=== PATIENT | male | born 1965 | race Caucasian/White ===

== ENCOUNTER 2017-06-21 14:17 | Emergency (ER) | payer OTHER ==
[~2017-06-21] VITALS: Ht 182.9 cm; Wt 158.8 kg
[~2017-06-21 14:17] MED LIST: ASP81TEC PO; C250T; CHOL10002; COLC0.6T7 PO; HYDR-3720 PO; HYDR-3816 PO; HYDR1TAB PO; INDO50CA PO; LISI10TA; LISI10TA PO; MTP25TSR PO; MULT1CAP27 PO; MVI; PRD20T PO; SIMV20TA3; SIMV20TA3 PO; VITA1CAP59; aspirin
--- OUTSIDE RECORDS SUMMARY | 2017-06-21 14:23 | XMS REPORT | Continuity of Care Document ---
Author Author [facility] Organization [facility] Address Unknown Phone Unavailable Allergies Active Description Code Type Severity Reaction Onset Reported/Identified Relationship to Patient Clinical Status Yes NKANo Known Allergies NKA Miscellaneous Allergy Mild N/A 12/04/2008 Medications Problems Date Dx Coded Attending Type Code Diagnosis Diagnosed By 12/03/2009 Ot 327.23 12/03/2009 Ot 401.9 01/21/2010 Ot 274.9 01/21/2010 Ot 729.5 03/31/2010 Ot 272.4 03/31/2010 Ot 274.00 03/31/2010 Ot 305.1 03/31/2010 Ot 401.9 03/31/2010 Ot 414.00 03/31/2010 Ot 723.1 03/31/2010 Ot 786.52 03/31/2010 Ot V58.66 03/31/2010 Ot V58.69 12/28/2010 Ot 401.9 HYPERTENSION NOS 04/12/2011 Ot 274.01 ACUTE GOUTY ARTHROPATHY 04/12/2011 Ot 719.46 JOINT PAIN-L/LEG 05/03/2014 RIA SANDERS JEFFREY Ashley Ot 274.9 GOUT NOS 10/03/2014 RISSA FRANCOIS MD Ot 786.05 10/05/2014 RISSA FRANCOIS MD Ot 786.05 10/08/2014 RISSA FRACNOIS MD Ot 786.05 01/28/2015 RISSA FRANCOIS MD Ot 786.05 05/24/2015 RISSA FRANCOIS MD Ot 786.05 06/05/2015 RISSA FRANCOIS MD Ot 786.05 09/02/2015 RISSA FRANCOIS MD Ot 786.05 09/03/2015 RISSA FRANCOIS MD Ot 786.05 03/31/2016 RISSA FRANCOIS MD Ot 786.05 SHORTNESS OF BREATH 04/01/2016 RISSA FRANCOIS MD Ot 786.05 SHORTNESS OF BREATH 05/25/2016 RISSA FRANCOIS MD Ot 786.05 SHORTNESS OF BREATH 05/25/2016 LOIS FRITZ, CARLEY Rodriguez Ot E11.9 TYPE 2 DIABETES MELLITUS WITHOUT COMPLIC 05/25/2016 CARLEY ABREU MD Ot I10 ESSENTIAL (PRIMARY) HYPERTENSION 05/25/2016 CARLEY ABREU MD Ot M25.531 PAIN IN RIGHT WRIST 05/25/2016 CARLEY ABREU MD Ot Z79.82 CUSTODIAL (CURRENT) USE OF ASPIRIN 05/25/2016 CARLEY ABREU MD Ot Z79.899 OTHER CUSTODIAL (CURRENT) DRUG THERAPY 05/27/2016 CARLEY ABREU MD Ot E11.9 TYPE 2 DIABETES MELLITUS WITHOUT COMPLIC 05/27/2016 CARLEY ABREU MD Ot I10 ESSENTIAL (PRIMARY) HYPERTENSION 05/27/2016 CARLEY ABREU MD Ot M25.531 PAIN IN RIGHT WRIST 05/27/2016 CARLEY ABREU MD Ot 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 Visit Date/Time Discharge Status Pt. Type Provider Facility Loc./Unit Complaint [id number] 05/25/2016 08:09:00 2015 09:19:00 DIS Emergency CARLEY ABREU MD [facility] ER RIGHT WRIST PAIN/SWELLING [id number] 07/31/2015 10:51:00 2014 23:59:59 CLS Outpatient CAREY PERRY [facility] OCC [id number] 05/02/2014 23:33:00 2013 01:05:00 DIS Emergency JEFFREY ROLLINS DO [facility] ER L KNEE PAIN [id number] 04/24/2014 13:37:00 2013 23:59:59 CLS Outpatient RISSA FRANCOIS MD [facility] RAD SOB [id number] 01/07/2015 19:20:00 Document Registration [id number] 01/07/2015 19:19:00 Document Registration [id number] 01/07/2015 19:19:00 Document Registration [id number] 04/12/2011 21:10:00 Document Registration [id number] 01/21/2010 00:24:00 Document Registration [id number] 12/02/2009 21:41:00 Document Registration
[2017-06-21] MEDS ORDERED: RT-ALBUTEROL/IPRATROPIUM 3 ML (DUONEB) VIAL INH ONE (15:00)
--- NOTE | 2017-06-21 15:02 | ED Cough/URI ---
General Chief Complaint: Cough/Cold/Flu Symptoms Stated Complaint: COLD SYMPTOMS CHEST CONGESTION SOA Source: patient Exam Limitations: no limitations History of Present Illness Time seen by provider: 15:00 Initial Comments To ER with a 2 week history of cough, shortness of breath, dyspnea on exertion. States that his whole family has been ill with similar symptoms. His cough was initially productive but today is not. He has some sharp chest pain with deep breathing and shortness of breath with exertion which is unusual for him. Has persistent nasal and head congestion. Timing/Duration: other (2 weeks ) Severity/Quality: dry cough Associated Symptoms: cough Allergies and Home Medications Allergies Coded Allergies: NKANo Known Allergies (Unverified Allergy, Mild, 12/04/08) Home Medications Aspirin 81 Mg Tabec, 325 MG PO DAILY, Ref 0 (Reported) Cefdinir 300 Mg Capsule, 300 MG PO BID, #14 Prescribed by: ADAN AGUIRRE on 06/21/17 1542 Hydrocodone/Acetaminophen 1 Each Tablet, 1 EACH PO Q6H, #12 Prescribed by: CARLEY ABREU on 05/25/16 0912 Lisinopril 10 Mg Tablet, 20 MG PO DAILY, Ref 0 (Reported) Metoprolol Succinate 25 Mg Tab, 25 MG PO DAILY, Ref 0 (Reported) Multivitamins 1 Each Capsule, 1 EACH PO DAILY, (Reported) Prednisone 20 Mg Tab, 40 MG PO DAILY, #12 Prescribed by: CARLEY ABREU on 05/25/16 0912 Simvastatin 20 Mg Tablet, 20 MG PO DAILY, (Reported) Constitutional: see HPI EENTM: see HPI, nose congestion Respiratory: see HPI, cough, dyspnea on exertion Cardiovascular: no symptoms reported Genitourinary: no symptoms reported Musculoskeletal: no symptoms reported Skin: no symptoms reported Psychiatric/Neurological: No Symptoms Reported Hematologic/Lymphatic: No Symptoms Reported Past Dsxmaal-Kddwge-Tbxdap Hx Patient Social History Alcohol Use: Occasionally Uses Alcohol Beverage of Choice: Beer Recreational Drug Use: No Smoking Status: Never a Smoker 2nd Hand Smoke Exposure: No Recent Foreign Travel: No Contact w/Someone Who Travel: No Recent Hopitalizations: Yes Physical Abuse: No Sexual Abuse: No Mistreated: No Fear: No Surgeries History of Surgeries: Yes (UMB HERNIA, HEART CATH) Respiratory History of Respiratory Disorde: No Cardiovascular History of Cardiac Disorders: Yes Cardiac Disorders: High Cholesterol, Hypertension Neurological History of Neurological Disord: No Reproductive System Hx Reproductive Disorders: No Genitourinary History of Genitourinary Disor: No Gastrointestinal History of Gastrointestinal Di: Yes Musculoskeletal History of Musculoskeletal Dis: No Endocrine History of Endocrine Disorders: Yes Endocrine Disorders: Diabetes, Non-Insulin dep HEENT History of HEENT Disorders: No Cancer History of Cancer: No Psychosocial History of Psychiatric Problem: No Suicide Risk Score: 0 Integumentary History of Skin or Integumenta: No Blood Transfusions History of Blood Disorders: No Family Medical History Significant Family History: No Pertinent Family Hx Physical Exam Vital Signs Vital Sign - Last 12Hours 06/21/17 14:51 Temp 98.3 Pulse 79 Resp 20 B/P (MAP) 122/79 Pulse Ox 93 O2 Delivery Room Air Capillary Refill : General Appearance: WD/WN, no apparent distress Eyes: Bilateral Eye Normal Inspection, Bilateral Eye PERRL, Bilateral Eye EOMI HEENT: PERRL/EOMI, normal ENT inspection Neck: non-tender, full range of motion Respiratory: lungs clear, normal breath sounds, no respiratory distress, no accessory muscle use Cardiovascular: regular rate, rhythm, no murmur Gastrointestinal: normal bowel sounds, non tender, soft Extremities: normal range of motion, non-tender Neurologic/Psychiatric: alert, normal mood/affect, oriented x 3 Skin: normal color, warm/dry Progress/Results/Core Measures Results/Orders My Orders Orders - ADAN AGUIRRE APRN Chest Pa/Lat (2 View) (06/21/17 14:58) Albuterol/Ipra Inhalation Soln (Duoneb I (06/21/17 15:00) Svn Sm Volume Nebulizer Rt-Rfs (06/21/17 14:58) Ceftriaxone Injection (Rocephin Injectio (06/21/17 15:15) Lidocaine 1% Injection (Xylocaine 1% Inj (06/21/17 15:15) Medications Given in ED Current Medications Medications Dose Ordered Sig/All Route Start Time Stop Time Status Last Admin Dose Admin Albuterol/ Ipratropium 3 ml ONCE ONCE INH 06/21/17 15:00 06/21/17 15:01 DC 06/21/17 15:26 3 ML Vital Signs/I&O Vital Sign - Last 12Hours 06/21/17 06/21/17 06/21/17 14:51 14:51 15:26 Temp 98.3 Pulse 79 Resp 20 B/P (MAP) 122/79 Pulse Ox 93 97 O2 Delivery Room Air Room Air Room Air Diagnostic Imaging Diagonstic Imaging: Xray Plain Films/CT/US/NM/MRI: chest Comments NAME: BRENTON [facility]MAGUER [facility] REC#: [id number] PT STATUS: REG ER : 1965 PHYSICIAN: ADAN AGUIRRE APRN ADMIT DATE: 06/21/17/ER Draft Date of Exam:06/21/17 CHEST PA/LAT (2 VIEW) PA and lateral views of the chest. INDICATION: Shortness of breath. COMPARISON: 04/24/2014. FINDINGS: There is a patchy infiltrate silhouetting the left cardiac border. The right lung is clear. The heart size is mildly enlarged. No effusion or pneumothorax. The mediastinum and guilherme appear unremarkable. IMPRESSION: Mild opacity in the lingula silhouetting the left cardiac border suggestive of atelectasis or mild pneumonia. Dictated on workstation # [id number] Dict: 06/21/17 1532 Trans: 06/21/17 1543 [facility] [id number] Interpreted by: KARMEN UPTON MD Electronically signed by: Departure Impression Impression: Primary Impression: LLL pneumonia Disposition: 01 HOME, SELF-CARE Condition: Stable Departure-Patient Inst. Decision time for Depature: 15:40 Referrals: LEONARDO RUGGIERO DO (PCP/Family) Primary Care Physician Patient Instructions: Pneumonia, Adult (DC) Add. Discharge Instructions: 1. Return to ER for any concerns 2. Follow up with with your doctor this week on or Wednesday for recheck 3. Antibiotics as directed starting tomorrow 4. You may return to Work on All discharge instructions reviewed with patient and/or family. Voiced understanding. Scripts Cefdinir (Cefdinir) 300 Mg Capsule 300 MG PO BID, #14 CAP Prov: ADAN AGUIRRE APRN 06/21/17 Work/School Note: Work Release Form Date Seen in the Emergency Department: Jun 21, 2017 Return to Work: Jun 24, 2017 ADAN AGUIRRE APRN Jun 21, 2017 15:02
[2017-06-21] MEDS ORDERED: cefTRIAXone 1 GM (ROCEPHIN) VIAL IM ONE (15:15)
[2017-06-21] MEDS ORDERED: LIDOCAINE 1% INJ 20 ML (XYLOCAINE) VIAL INJ ONE (15:15)
[2017-06-21] MEDS ORDERED: CEFD300C3 PO (15:42)
--- NOTE | 2017-06-21 15:44 | Diagnostic Imaging Report ---
PA and lateral views of the chest. INDICATION: Shortness of breath. COMPARISON: 04/24/2014. FINDINGS: There is a patchy infiltrate silhouetting the left cardiac border. The right lung is clear. The heart size is mildly enlarged. No effusion or pneumothorax. The mediastinum and guilherme appear unremarkable. IMPRESSION: Mild opacity in the lingula silhouetting the left cardiac border suggestive of atelectasis or mild pneumonia. Dictated by: Dictated on workstation # [id number]
[2017-06-21] MEDS ORDERED: DEXAMETHASONE 10 MG/ML (DECADRON) 1 ML VIAL IM ONE (16:00)
[2017-06-21 16:22] VITALS: BP 130/87
== END 2017-06-21 16:22 | disposition home or self-care (01) ==
LOC: EDUNIT# 14:17 → ER 14:19
DX: J18.1 Lobar pneumonia, unspecified organism (principal); E11.9 Type 2 diabetes mellitus without complications; E78.00 Pure hypercholesterolemia, unspecified; I10 Essential (primary) hypertension; Z79.82 Long term (current) use of aspirin
CPT/HCPCS: 71020; 94640; 96372; 99284

== ENCOUNTER → 2018-05-13 | Outpatient (CLI) | payer OTHER ==
[~2018-05-13] MED LIST changes: +ASPI-999 PO; +CEFD300C3 PO; +GLIP5TAB13 PO; +HYDR-34 PO; +LISI-552 PO; +METF-397 PO; +METO-387 PO; +MULT1TAB69 PO; +SIMV40TA4 PO; +VENL150C PO; +VITA150T PO
--- NOTE | 2018-05-13 09:27 | Diagnostic Imaging Report ---
PROCEDURE: MRI right joint lower extremity without contrast. TECHNIQUE: Multiplanar, multisequence MR imaging of the right knee was performed without contrast. COMPARISON: None available. INDICATION: Knee pain. FINDINGS: MENISCI Medial meniscus: Near full-thickness radial tear in the posterior horn of the medial meniscus near its root insertional fibers. The body of the medial meniscus is partially extruded into the medial gutter. Degenerative free edge tearing is present throughout the body as well. Lateral meniscus: Normal. LIGAMENTS ACL: Intact. PCL: Intact. MCL: Intact. LCL: The lateral collateral ligamentous complex is intact. EXTENSOR MECHANISM The extensor mechanism is intact. CARTILAGE Medial compartment: Diffuse chondral wear throughout the medial compartment without superimposed full-thickness chondromalacia. Lateral compartment: Focal subchondral insufficiency fracture in the anterior aspect of lateral femoral condyle without substantial surrounding bone marrow edema is indicative of a subchondral fracture. No depression of the subchondral bone plate. Patellofemoral compartment: Low-grade partial-thickness chondral loss in the patellar facets. BONE Subchondral insufficiency fracture in the lateral femoral condyle, detailed above. No additional acute osseous abnormality. SOFT TISSUE Small knee joint effusion with mild synovitis is likely reactive/degenerative in nature. No Andrews's cyst. IMPRESSION: 1. Near-complete radial tear in the posterior horn of the medial meniscus resulting in partial extrusion of the body into the medial gutter. 2. Subacute subchondral insufficiency fracture in the anterior aspect of lateral femoral condyle. No subchondral bone collapse. 3. Tricompartmental articular cartilage thinning is degenerative in nature. 4. Small knee joint effusion Dictated by: Dictated on workstation # [id number]
== END ==
LOC: RAD 06:59
PROVIDERS: ATTEND Nurse Practitioner
DX: S83.241A Other tear of medial meniscus, current injury, right knee, initial encounter (principal); S72.421A Displaced fracture of lateral condyle of right femur, initial encounter for closed fracture; M94.8X8 Other specified disorders of cartilage, other site; S83.281A Other tear of lateral meniscus, current injury, right knee, initial encounter
CPT/HCPCS: 73721

== ENCOUNTER 2018-05-23 12:55 | Outpatient (CLI) | payer OTHER ==
[~2018-05-23] VITALS: Ht 185.4 cm; Wt 149.8 kg
[~2018-05-23 12:55] MED LIST changes: -ASPI-999 PO; -GLIP5TAB13 PO; -HYDR-3816 PO; -LISI-552 PO; -METF-397 PO; -METO-387 PO; -MULT1TAB69 PO; -SIMV40TA4 PO; -VENL150C PO; -VITA150T PO
[2018-05-23] MEDS ORDERED: VITA150T PO (13:16)
[2018-05-23] MEDS ORDERED: SIMV40TA4 PO (13:16)
[2018-05-23] MEDS ORDERED: ASPI-999 PO (13:16)
[2018-05-23] MEDS ORDERED: METO-387 PO (13:16)
[2018-05-23] MEDS ORDERED: GLIP5TAB13 PO (13:16)
[2018-05-23] MEDS ORDERED: LISI-552 PO (13:16)
[2018-05-23] MEDS ORDERED: VENL150C PO (13:16)
[2018-05-23] MEDS ORDERED: MULT1TAB69 PO (13:16)
[2018-05-23] MEDS ORDERED: METF-397 PO (13:16)
[2018-05-23 13:21] VITALS: BP 125/74
== END 2018-05-23 13:57 | disposition home or self-care (01) ==
LOC: PREOP 12:55
PROVIDERS: ATTEND Orthopaedic Surgery
DX: Z01.818 Encounter for other preprocedural examination (principal)
CPT/HCPCS: 87081

== ENCOUNTER 2018-05-25 08:05 | Day surgery (SDC) | payer OTHER ==
--- NOTE | 2018-05-20 15:01 | HISTORY AND PHYSICAL ---
DATE OF SERVICE: Date of service and surgery will be 05/25/2018 for right knee arthroscopy. HISTORY OF PRESENT ILLNESS: The patient is a 53-year-old gentleman who injured his right knee at the beginning of the month. He twisted, felt and heard a pop. He reports pain anteriorly and medially. He has had no prior history of knee problems. The patient underwent MRI which shows a complex posterior horn medial meniscal tear. Due to functional impairment and failure to improve with conservative measures, the patient has elected to proceed with surgical intervention. REVIEW OF SYSTEMS: No chest pain, no shortness of breath, no dysuria. PAST MEDICAL HISTORY: Diabetes, hypertension. PAST SURGICAL HISTORY: Herniorrhaphy, heart catheterization. FAMILY HISTORY: Noncontributory. PRIMARY CARE PROVIDER: Dr. Harris. MEDICATIONS: Metformin, glipizide, lisinopril, simvastatin, Effexor, metoprolol. ALLERGIES: No known drug allergies. SOCIAL HISTORY: The patient drinks alcohol socially. Denies tobacco use. RADIOGRAPHS: Revealed mild medial compartment joint space narrowing and moderate patellofemoral joint space narrowing. PHYSICAL EXAMINATION: GENERAL: The patient is well developed, well nourished, no acute distress. HEENT: Normocephalic and atraumatic. Pupils are equal, round and reactive to light. Oropharynx is clear. NECK: Supple, no lymphadenopathy. LUNGS: Clear to auscultation bilaterally. HEART: Regular rate and rhythm. ABDOMEN: Soft, nontender, nondistended. EXTREMITIES: The right knee demonstrates moderate effusion. He ambulates with antalgic gait. He is markedly tender along the medial joint line. He has pain medially with Emerson's. Range of motion 0/0/120. No varus valgus laxity. Negative anterior and posterior drawer. IMPRESSION: Right knee medial meniscal tear, complex, unresponsive to conservative measures. PLAN: Right knee arthroscopy, partial medial meniscectomy and chondroplasty. The risks, benefits, options, ramifications and recovery have been discussed at length with the patient. He understands and wishes to proceed. Job ID: [id number] DocumentID: [id number] Dictated Date: 05/18/2018 16:50:16 Furnace Attendant Date: 05/18/2018 17:22:56 Dictated By: NEFTALY INFANTE MD
[~2018-05-25] VITALS: Ht 185.4 cm; Wt 149.8 kg
[2018-05-25 08:05] VITALS: BP 116/67
[~2018-05-25 08:05] MED LIST changes: +ASPI-999 PO; +GLIP5TAB13 PO; +LISI-552 PO; +METF-397 PO; +METO-387 PO; +MULT1TAB69 PO; +SIMV40TA4 PO; +VENL150C PO; +VITA150T PO
[2018-05-25] MEDS ORDERED: LACTATED RINGERS 1,000 ML IV PRN (08:11)
[2018-05-25] MEDS ORDERED: ceFAZolin INJECTION 1,000 MG in NS (IVPB) 50 ML IV ONE (08:15)
--- NOTE | 2018-05-25 08:17 | Progress Note-Pre Operative ---
Pre-Operative Progress Note H&P Reviewed The H&P was reviewed, patient examined and no changes noted. 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
--- NOTE | 2018-05-25 08:18 | Progress Note-Post Operative ---
Post-Operative Progess Note Surgeon (s)/Didactic Instructor (s) Surgeon NEFTALY INFANTE MD Didactic Instructor: Sundar Clayton Pre-Operative Diagnosis right knee medial and lateral meniscus tears and chondromalacia Post-Operative Diagnosis right knee lateral meniscus tear and chondromalalacia of the medial femoral condyle, lateral tibial plateau and trochlea Procedure & Operative Findings Date of Procedure 05/25/18 Procedure Performed/Findings right knee arthroscopic partial lateral meniscectomy and chondroplasty of trochlea, medial femoral condyle and lateral tibial plateau Anesthesia Type GETA Estimated Blood Loss Estimated blood loss (mL): minimal Specimens/Packing Specimens Removed none Packing: none NEFTALY INFANTE MD May 25, 2018 08:18
[2018-05-25] MEDS ORDERED: CATHETER FLUSH 10 ML SYR IV PRN (08:30)
[2018-05-25] MEDS ORDERED: HYDROcodone/APAP 7.5 MG/325 MG (LORTAB, LORCET PLUS) TABLET PO PRN (08:30)
[2018-05-25] MEDS ORDERED: BUPIVACAINE 0.5% 30 ML (SENSORCAINE) VIAL ONE (08:38)
[2018-05-25] MEDS ORDERED: morphine PF (DURAMORPH) 10 MG/10 ML AMP ONE (08:38)
[2018-05-25] MEDS ORDERED: MIDAZOLAM 2 MG/2 ML (VERSED) VIAL ONE (08:59)
[2018-05-25] MEDS ORDERED: fentaNYL INJECTION 100 MCG/2 ML AMP ONE (08:59)
[2018-05-25] MEDS ORDERED: proPOfol 200 MG/20 ML (DIPRIVAN) VIAL IV ONE (08:59)
[2018-05-25] MEDS ORDERED: LIDOCAINE PF 2% 2 ML (XYLOCAINE) VIAL ONE ×2 (08:59→09:29)
[2018-05-25] MEDS ORDERED: SEVOFLURANE (ULTANE) 15 ML INHAL SOLN ONE (09:00)
[2018-05-25] MEDS ORDERED: ONDANSETRON 4 MG/2 ML (SDV) Z0FRAN ONE (09:00)
[2018-05-25] MEDS ORDERED: fentaNYL INJECTION 100 MCG/2 ML AMP IVP ONE (09:15)
[2018-05-25] MEDS ORDERED: DROPERIDOL 2.5 MG/ML (INAPSINE) AMP IVP ONE (09:15)
[2018-05-25] MEDS ORDERED: MEPERIDINE (DEMEROL) INJ 50 MG/ML IVP ONE (09:15)
[2018-05-25] MEDS ORDERED: morphine INJ 10 MG/ML 1ML (SYR OR VIAL) IVP ONE (09:15)
[2018-05-25] MEDS ORDERED: ONDANSETRON 4 MG/2 ML (SDV) Z0FRAN IVP PRN (09:15)
[2018-05-25] MEDS ORDERED: HYDROmorphone 2 MG/ML VIAL (DILAUDID) IV ONE (09:15)
[2018-05-25] MEDS ORDERED: PROMETHAZINE INJ 25 MG/ML (PHENERGAN) AMP IVP ONE (09:15)
--- NOTE | 2018-05-25 11:00 | Anesthesia-General Post-Op ---
General Patient Condition Mental Status/LOC: Same as Preop Cardiovascular: Satisfactory Nausea/Vomiting: Absent Respiratory: Satisfactory Pain: Controlled Complications: Absent Post Op Complications Complications None Follow Up Care/Instructions Patient Instructions None needed. Anesthesia/Patient Condition Patient Condition Patient is doing well, no complaints, stable vital signs, no apparent adverse anesthesia problems. No complications reported per nursing. BREE CELESTIN CRNA May 25, 2018 11:00
[2018-05-25 11:10] VITALS: BP 99/67
[2018-05-25 11:40] VITALS: BP 105/71
[2018-05-25] MEDS ORDERED: HYDR-3816 PO (11:44)
--- NOTE | 2018-05-25 11:58 | Physical Therapy Ortho Eval ---
PT Orthopedic Evaluation Type of Surgery Knee Scope right knee Prior Level of Function Current Living Status: Spouse Locomotion (Upon Admit): Independent Established Durable Medical Eq: Crutches Subjective Subjective pt in bed pre tx, agrees to PT, no pain to report Entry Into Home: Stairs With Railing Steps Into Home: 1 Motor Control Motor Control: Motor Control WNL ROM R knee ext. +5 degrees, R knee flexion 75 degrees Strength NT Transfer Transfers (B, C, W/C) (FIM): 7 Gait Gait Assistive Device: Crutches pt ambulates 200' w/ CGA using crutches w/ decreased stance time on RLE and is able to ascend/descend 1 step w/ CGA Right Lower Extremity: Right Weight Bearing Status RLE: Weight Bearing/Tolerated Left Lower Extremity: Left Weight Bearing Status LLE: Full Weight Bearing Gait (FIM): 4 Distance: 200' Gait Level of Assist: 4 Treatment Rendered Treatment: Therapeutic Exercises, Gait Train, Step Train, Reviewed Precautions , Use of Ice Exercise Instruction: Quad Sets, Heel Slides, Ankle Pumps x10, 2-3x per day Assessment/Goals Goal Time Frame: 1 Visit Understands HEP: Yes Safe Ambulation: Yes Plan Treatment Plan: Discharge PT/Family Agrees to Plan: Yes Time Time In: 1135 Time Out: 1150 Billed Treatment Time 1 visit EVL 15' PT/OT Therapy GCodes Therapy Functional Limitation: Physical Therapy Test(s)/Tool used to determine: Level of Assistance Scale Functional Limitation-Current Charge Code: MOBCUR Modifier: CI Functional Limitation-Goal Charge Code: MOBGOAL Modifier: CI Functional Limitation-D/C Charge Codes: MOBDC Modifier: CI DUNCAN PANDA PT May 25, 2018 11:58
[2018-05-25 12:05] VITALS: BP 110/68
[2018-05-25 12:07] VITALS: BP 110/68
--- NOTE | 2018-05-25 12:56 | OPERATIVE REPORT ---
DATE OF SERVICE: 05/25/2018 PREOPERATIVE DIAGNOSES: 1. Right knee lateral meniscal tear. 2. Right knee chondromalacia of the medial femoral condyle. 3. Right knee chondromalacia of the patella. POSTOPERATIVE DIAGNOSES: 1. Right knee lateral meniscal tear. 2. Right knee chondromalacia of the medial femoral condyle. 3. Right knee chondromalacia of the trochlea. 4. Right knee chondromalacia of lateral tibial plateau. PROCEDURES: 1. Right knee arthroscopic partial lateral meniscectomy. 2. Right knee arthroscopic chondroplasty of the medial femoral condyle. 3. Right knee arthroscopic chondroplasty of the trochlea. 4. Right knee arthroscopic chondroplasty of the lateral tibial plateau. SURGEON: Demario Infante MD. DIRECTOR SUPPLY: JULIA Lobo, who assisted throughout the procedure and closed the incisions. ANESTHESIA: General endotracheal by Walter Ayers CRNA. TOURNIQUET TIME: Not applicable. ESTIMATED BLOOD LOSS: Minimal. DRAINS: None. COMPLICATIONS: None. POSTOPERATIVE PLANS: Routine arthroscopy protocol. The patient was transported to the recovery room awake and in stable condition. STATEMENT OF MEDICAL NECESSITY: The patient is a 53-year-old gentleman with complaints of right knee pain, catching, locking and swelling. He complained of popping and catching in his knee. An MRI revealed a posterior horn lateral meniscus tear as well as chondral changes in his medial and patellofemoral compartments. He reported functional impairment. Due to failure to improve with conservative measures, the patient elected to proceed with surgical intervention. Examination under anesthesia revealed range of motion of 0/0/130 with a negative Mike, negative anterior and posterior drawer. No varus-valgus laxity, negative pivot shift. Arthroscopic findings, the patella demonstrated grade I chondral softening centrally with no unstable chondral flaps. Trochlea demonstrated grade II to III chondral loss in the central portion of the groove in a 10 x 10 area with surrounding grade II chondral flaps at the periphery. The lateral compartment demonstrated a flap tear of the body involving approximately 20% of the body of the meniscus. The posterior aspect of the tibial plateau laterally demonstrated grade III chondral flap in a 5 x 8 area. The ACL and PCL were intact. The medial compartment demonstrated grade II chondral flap over the central portion of the femoral condyle in 10 x 10 area with no meniscal pathology noted. DESCRIPTION OF PROCEDURE: After risks and benefits of procedure were discussed and questions were answered, an informed consent was signed and placed on the chart. The operative site was confirmed in the preoperative holding area initialed by the surgeon. The patient was transported to the operating room, and after adequate levels of general endotracheal anesthetic were obtained, a timeout was called confirming the operative site. Examination under anesthesia was performed with the above findings noted. The right lower extremity was then prepped and draped in the usual sterile fashion and the knee joint was injected with 60 mL of fluid and a standard inferolateral portal was placed for the arthroscope under direct visualization. An inferomedial portal was created. The menisci and cruciates carefully probed with the above findings noted. The unstable chondral flaps on the trochlea were debrided with a shaver back to a stable edge. Scope was redirected into the medial compartment. The unstable chondral flaps on the medial femoral condyle were debrided with shaver back to a stable edge. The scope was then redirected into the lateral compartment where the unstable chondral flaps on the lateral tibial plateau were debrided with shaver back to a stable edge and the tear of the body of the meniscus was debrided with a shaver back to a stable edge. This was carefully probed with no further tearing or instability noted. The knee was copiously irrigated. Portal sites were closed with 4-0 nylon in simple interrupted fashion. The knee was injected with Duramorph. The port sites were infiltrated with plain Marcaine. A soft dressing was applied and the patient was transported to the recovery room awake and in stable condition. Job ID: [id number] DocumentID: [id number] Dictated Date: 05/25/2018 09:59:17 Java Performance Engineer Date: 05/25/2018 12:56:16 Dictated By: DEMARIO INFANTE MD
== END 2018-05-25 12:07 | disposition home or self-care (01) ==
LOC: SDC 08:05
PROVIDERS: ATTEND Orthopaedic Surgery
DX: S83.281A Other tear of lateral meniscus, current injury, right knee, initial encounter (principal); M94.261 Chondromalacia, right knee; I10 Essential (primary) hypertension; E11.9 Type 2 diabetes mellitus without complications; X50.9XXA Other and unspecified overexertion or strenuous movements or postures, initial encounter; Z79.899 Other long term (current) drug therapy; Z79.84 Long term (current) use of oral hypoglycemic drugs
CPT/HCPCS: 82962

== ENCOUNTER 2018-05-26 13:35 | Emergency (ER) | payer OTHER ==
[~2018-05-26 13:35] MED LIST changes: +HYDR-3816 PO
--- OUTSIDE RECORDS SUMMARY | 2018-05-26 17:10 | XMS REPORT | Continuity of Care Document ---
Author Author [facility] Organization [facility] Address Unknown Phone Unavailable Allergies Active Description Code Type Severity Reaction Onset Reported/Identified Relationship to Patient Clinical Status Yes NO KNOWN DRUG ALLERGIES NO KNOWN DRUG ALLERG UNKNOWN Yes NO KNOWN DRUG ALLERGIES UNKNOWN NO KNOWN DRUG ALLERG Yes NKANo Known Allergies NKA Miscellaneous Allergy Mild N/A 12/04/2008 Yes No Known Drug Allergies [id number] Drug Allergy Unknown N/A 05/23/2018 Medications Medication Packaging Start Date Stop Date Route Dosage Sig MORPHINE PF AMP INJ 5 MG/10CC (DURAMORPH AMP) MG 12/03/2016 12/03/2016 ONCE&0947 KETOROLAC VIAL INJ 30 MG/CC (TORADOL VIAL) MG 12/03/2016 12/03/2016 ONCE&1009 Morphine IV cartridge 4mg/cc MG 12/03/2016 PRN ONCE INDOMETHACIN CAP 50 MG (INDOCIN) MG 12/03/2016 12/03/2016 ONCE&1058 Problems Date Dx Coded Attending Type Code [...] ACUTE GOUTY ARTHROPATHY 04/12/2011 Ot 719.46 JOINT PAIN-L /LEG 05/03/2014 JEFFREY ROLLINS DO Ot 274.9 GOUT NOS 10/03/2014 RSISA FRANCOIS MD Ot 786.05 10/05/2014 RISSA FRANCOIS MD Ot 786.05 10/08/2014 RISSA FRANCOIS MD Ot 786.05 01/28/2015 RISSA FRANCOIS MD Ot 786.05 05/24/2015 RISSA FRANCOIS MD Ot 786.05 06/05/2015 RISSA FRANCOIS MD Ot 786.05 09/02/2015 RISSA FRANCOIS MD Ot 786.05 09/03/2015 RISSA FRANCOIS MD Ot 786.05 03/31/2016 RISSA FRANCOIS MD Ot 786.05 SHORTNESS OF BREATH 04/01/2016 RISSA FRANCOIS MD Ot 786.05 SHORTNESS OF BREATH 05/25/2016 RISSA FRANCOIS MD Ot 786.05 SHORTNESS OF BREATH 05/25/2016 CARLEY ABREU MD, Ot E11.9 TYPE 2 DIABETES MELLITUS WITHOUT COMPLIC 05/25/2016 CARLEY ABREU MD, Ot I10 ESSENTIAL (PRIMARY) HYPERTENSION 05/25/2016 CARLEY ABREU MD, Ot M25.531 PAIN IN RIGHT WRIST 05/25/2016 CARLEY ABREU MD, Ot Z79.82 NURSING HOME (CURRENT) USE OF ASPIRIN 05/25/2016 CARLEY ABERU MD Ot Z79.899 OTHER WORKING FOREMAN (CURRENT) DRUG THERAPY 05/27/2016 CARLEY ABREU MD, Ot E11.9 TYPE 2 DIABETES MELLITUS WITHOUT COMPLIC 05/27/2016 CARLEY ABREU MD Ot I10 ESSENTIAL (PRIMARY) HYPERTENSION 05/27/2016 CARLEY ABREU MD Ot M25.531 PAIN IN RIGHT WRIST 05/27/2016 CARLEY ABREU MD Ot Z79.82 WORKING FOREMAN (CURRENT) USE OF ASPIRIN 05/27/2016 CARLEY ABREU MD Ot Z79.899 OTHER WORKING FOREMAN (CURRENT) DRUG THERAPY 12/03/2016 Nico Booker 250.00 DIABETES MELLITUS WITHOUT MENTION OF COMPLICATION, TYPE II OR UNSPECIFIED TYPE, NOT STATED UNCONTROLLED 12/03/2016 Nico Booker 272.4 OTHER AND UNSPECIFIED HYPERLIPIDEMIA 12/03/2016 Nico Booker 274.9 GOUT, UNSPECIFIED 12/03/2016 Nico Booker 401.0 MALIGNANT ESSENTIAL HYPERTENSION 12/03/2016 Nico Booker 845.10 12/03/2016 Nico Booker E11.9 TYPE 2 DIABETES MELLITUS WITHOUT COMPLICATIONS 12/03/2016 KarleeNico bailey E78.5 HYPERLIPIDEMIA, UNSPECIFIED 12/03/2016 Nico Booker I10 ESSENTIAL (PRIMARY) HYPERTENSION 12/03/2016 Nico Booker M10.9 GOUT, UNSPECIFIED 12/03/2016 Nico Booker Donell S93.602A UNSPECIFIED SPRAIN OF LEFT FOOT, INITIAL ENCOUNTER 12/10/2016 ALESSANDRO FRITZ, RISSA Vickers Ot 786.05 SHORTNESS OF BREATH 06/21/2017 ADAN AGUIRRE APRN Ot E11.9 TYPE 2 DIABETES MELLITUS WITHOUT COMPLIC 06/21/2017 ADAN AGUIRRE APRN Ot E78.00 PURE HYPERCHOLESTEROLEMIA, UNSPECIFIED 06/21/2017 ADAN AGUIRRE APRN Ot I10 ESSENTIAL (PRIMARY) HYPERTENSION 06/21/2017 ADAN AGUIRRE APRN Ot J18.1 LOBAR PNEUMONIA, UNSPECIFIED ORGANISM 06/21/2017 ADAN AGUIRRE APRN Ot R06.02 SHORTNESS OF BREATH 06/21/2017 ADAN AGUIRRE APRN Ot Z79.82 WORKING FOREMAN (CURRENT) USE OF ASPIRIN 05/19/2018 Preet Harris V70.0 ROUTINE GENERAL MEDICAL EXAMINATION AT A HEALTH CARE FACILITY 05/19/2018 Preet Harris Z00.00 ENCOUNTER FOR GENERAL ADULT MEDICAL EXAMINATION WITHOUT ABNORMAL FINDINGS 05/19/2018 Preet Harris V70.0 ROUTINE GENERAL MEDICAL EXAMINATION AT A HEALTH CARE FACILITY 05/19/2018 Preet Harris Z00.00 ENCOUNTER FOR GENERAL ADULT MEDICAL EXAMINATION WITHOUT ABNORMAL FINDINGS Procedures There is no data. Results Test Result Range Sed Rate - 12/03/16 09:47 Sed Rate 49 mm/hr 0-9 Lipid Panel - 05/19/18 11:31 C/HDL 3.6 3.7-6.7 Cholesterol 135 mg/dL 100-240 HDL 38 mg/dL 30-85 LDL-Calculated 81 mg/dL 0-100 Trig 78 mg/dL 35-160 VLDL 16 mg/dL 0-42 Methicillin resistant Staphylococcus aureus (MRSA) screening culture - 13:35 Methicillin resistant Staphylococcus aureus (MRSA) screening culture NEG NRG Capillary blood glucose measurement by glucometer (mass/volume) - 05/25/18 08: 16 Capillary blood glucose measurement by glucometer (mass/volume) 154 mg/dL 70-110 Encounters ACCT No. Visit Date/Time Discharge Status Pt. Type Provider Facility Loc./Unit Complaint [id number] 05/23/2018 12:55:00 05/23/2018 13:57:00 DIS Outpatient NEFTALY INFANTE MD [facility] PREOP RIGHT KNEE TORN MEDIAL MENISCUS [id number] 05/13/2018 06:59:00 05/13/2018 23:59:59 CLS Outpatient BREE STEVENSON SAWDUST MACHINE OPERATOR [facility] RAD ACUTE TEAR OF MEDIAL MEDISCUS [id number] 06/21/2017 14:19:00 06/21/2017 16:22:00 DIS Emergency ADAN AGUIRRE APRN [facility] ER COLD SYMPTOMS CHEST CONGESTION SOA [id number] 05/25/2016 08:09:00 05/25/2016 09:19:00 DIS Emergency CARLEY ABREU MD [facility] ER RIGHT WRIST PAIN/ SWELLING [id number] 07/31/2015 10:51:00 07/31/2015 23:59:59 CLS Outpatient CAREY PERRY [facility] OCC [id number] 05/02/2014 23:33:00 05/03/2014 01:05:00 DIS Emergency JEFFREY ROLLINS DO [facility] ER L KNEE PAIN [id number] 04/24/2014 13:37:00 04/24/2014 23:59:59 CLS Outpatient RISSA FRANCOIS MD [facility] RAD SOB [id number] 05/25/2018 10:00:00 PEN Preadmit NEFTALY INFANTE MD [facility] SDC RIGHT TORN MEDIAL MENISCUS [id number] 01/07/2015 19:20:00 Document Registration [id number] 01/07/2015 19:19:00 Document Registration [id number] 01/07/2015 19:19:00 Document Registration [id number] 04/12/2011 21:10:00 Document Registration [id number] 01/21/2010 00:24:00 Document Registration [id number] 12/02/2009 21:41:00 Document Registration [id number] 05/19/2018 11:26:00 05/19/2018 23:59:00 DIS Outpatient Preet Harris [id number] 12/03/2016 09:21:00 12/03/2016 11:20:00 DIS Out[place] [facility] [place] [id number] 12/03/2016 09:50:10 Document Registration
== END 2018-05-26 14:30 | disposition left against medical advice (07) ==
LOC: EDUNIT# 13:35 → ER 13:36
DX: M79.89 Other specified soft tissue disorders (principal); M79.604 Pain in right leg

== ENCOUNTER 2021-07-16 05:55 | Outpatient (CLI) | payer BC, OTHER ==
[~2021-07-16] VITALS: Ht 182.9 cm; Wt 134.1 kg
[~2021-07-16 05:55] MED LIST changes: -HYDR-3816 PO; -LISI-552 PO; +LISI20TA26 PO; -METO-387 PO; +MULT-567 PO; -MULT1TAB69 PO; +SIMV40TA25 PO; -SIMV40TA4 PO
[2021-07-17] MEDS ORDERED: INSU100I32 SQ (09:23)
== END 2021-07-17 10:20 | disposition home or self-care (01) ==
LOC: PREOP 05:55
PROVIDERS: ATTEND Surgery
DX: Z01.818 Encounter for other preprocedural examination (principal)

== ENCOUNTER 2021-07-21 10:26 | Day surgery (SDC) | payer BC, OTHER ==
[~2021-07-21] VITALS: Ht 182.9 cm; Wt 134.1 kg
[~2021-07-21 10:26] MED LIST changes: +INSU100I32 SQ
--- NOTE | 2021-07-21 10:42 | Progress Note-Pre Operative ---
Pre-Operative Progress Note H&P Reviewed The H&P was reviewed, patient examined and no changes noted. Time Seen by Provider: 10:41 Date H&P Reviewed: Jul 21, 2021 Time H&P Reviewed: 10:41 Pre-Operative Diagnosis: screening colonoscopy LUISA MATTHEWS DO Jul 21, 2021 10:42
[2021-07-21] MEDS ORDERED: LACTATED RINGERS 1,000 ML IV ONE (10:49)
[2021-07-21] MEDS ORDERED: LACTATED RINGERS 1,000 ML IV STA (10:55)
[2021-07-21 11:30] VITALS: BP 127/112
[2021-07-21] MEDS ORDERED: MIDAZOLAM 2 MG/2 ML (VERSED) VIAL ONE (11:57)
[2021-07-21] MEDS ORDERED: PROPOFOL INJECTION 50 ML IV ONE (11:57)
[2021-07-21 12:25] VITALS: BP 105/59
--- NOTE | 2021-07-21 12:25 | Progress Note-Post Operative ---
Post-Operative Progess Note Surgeon (s)/Commercial Credit Specialist (s) Surgeon LUISA MATTHEWS DO Commercial Credit Specialist: GALI Coyle Pre-Operative Diagnosis screening colonoscopy Post-Operative Diagnosis Polyp Diverticula int hemorrhoids Procedure & Operative Findings Date of Procedure 07/21/21 Procedure Performed/Findings Colon with hot biopsy PROCEDURE NOTE: After informed consent was obtained, the patient was brought to the endoscopy suite, placed in bed in left lateral decubitus position. He was administered IV sedation by the TRIMMER OPERATOR THREE KNIFE who then monitored his vitals the entire time, heart rate, blood pressure and pulse ox and the scope was inserted, pushed all the way to about 150 cm and pushed into the cecum, took a picture of appendiceal orifice and then slowly withdrew the scope insufflating to look circumferentially at the [place]. Starting in the cecum, up the ascending colon to the hepatic flexure. Then down the transverse colon where I found a small polyp and elected to do a hot biopsy. Continued down to the splenic flexure, into the descending colon down in the sigmoid and then into the rectal vault and retroflexed he scope. Took picture of the internal hemorrhoids. I also took a picture of diverticula, he had a few on the left and right. The patient tolerated the procedure. He was recovered in endoscopy suite. Anesthesia Type IV sedation by TRIMMER OPERATOR THREE KNIFE Estimated Blood Loss Estimated blood loss (mL): scant Specimens/Packing Specimens Removed transverse colon polyp LUISA MATTHEWS DO Jul 21, 2021 12:25
--- NOTE | 2021-07-21 12:26 | Endoscopy Discharge Instruct ---
Endo Procedure/Findings Findings 1.: Polyp 2.: Diverticulosis 3.: Internal Hemorrhoids Discharge Instructions - Activity: You might feel a little sleepy until tomorrow. This is due to the medicine you received to relax you. Until tomorrow, you should: NOT drive a car, operate machinery or power tools. NOT drink any alcoholic beverages. NOT make any important decisions or sign importortant papers. Do not return to work until tomorrow, unless otherwise instructed. Resume previous activities tomorrow. Diet: Start by taking liquids. If you tolerate liquids, advance to solid food. 1.: Colonscopy in 5 years Notify Physician - If you experience excessive bleeding, unusual abdominal pain, fever, or chest pain, contact your doctor immediately. LUISA MATTHEWS DO Jul 21, 2021 12:26
[2021-07-21 12:30] VITALS: BP 109/55
[2021-07-21 12:38] VITALS: BP 109/55
[2021-07-21 13:07] VITALS: BP 113/69
--- NOTE | 2021-07-21 14:41 | Anesthesia-General Post-Op ---
MAC Patient Condition Mental Status/LOC: Same as Preop Cardiovascular: Satisfactory Nausea/Vomiting: Absent Respiratory: Satisfactory Pain: Controlled Complications: Absent Post Op Complications Complications None Follow Up Care/Instructions Patient Instructions None needed. Anesthesiology Discharge Order Discharge Order Patient is doing well, no complaints, stable vital signs, no apparent adverse anesthesia problems. No complications reported per nursing. LELE REYES CRNA Jul 21, 2021 14:41
== END 2021-07-21 13:23 | disposition home or self-care (01) ==
LOC: ENDO 10:26
PROVIDERS: ATTEND Surgery
DX: Z12.11 Encounter for screening for malignant neoplasm of colon (principal); D12.3 Benign neoplasm of transverse colon; K57.90 Diverticulosis of intestine, part unspecified, without perforation or abscess without bleeding; K64.8 Other hemorrhoids; I10 Essential (primary) hypertension; E78.5 Hyperlipidemia, unspecified; G47.33 Obstructive sleep apnea (adult) (pediatric); Z99.89 Dependence on other enabling machines and devices; F32.A Depression, unspecified; E11.9 Type 2 diabetes mellitus without complications; E66.01 Morbid (severe) obesity due to excess calories; Z68.41 Body mass index [BMI] 40.0-44.9, adult; Z79.4 Long term (current) use of insulin; F17.220 Nicotine dependence, chewing tobacco, uncomplicated; F17.290 Nicotine dependence, other tobacco product, uncomplicated; Z79.02 Long term (current) use of antithrombotics/antiplatelets
CPT/HCPCS: 82947; 88305

== ENCOUNTER → 2022-06-08 | Outpatient (CLI) | payer BC, OTHER ==
[~2022-06-08] MED LIST changes: -VENL150C PO; +VENL150C3 PO
[2022-06-08 14:21] LABS: BASOPHILS # (AUTO) 0.1 10^3/uL (0.0-0.1); BASOPHILS % (AUTO) 1 % (0-10); EOSINOPHILS # (AUTO) 0.3 10^3/uL (0.0-0.3); EOSINOPHILS % (AUTO) 3 % (0-10); HEMATOCRIT 47 % (40-54); HEMOGLOBIN 15.6 g/dL (13.3-17.7); LYMPHOCYTES # (AUTO) 2.6 10^3/uL (1.0-4.0); LYMPHOCYTES % (AUTO) 28 % (12-44); MEAN CORPUSCULAR HEMOGLOBIN 29 pg (25-34); MEAN CORPUSCULAR HGB CONC 34 g/dL (32-36); MEAN CORPUSCULAR VOLUME 87 fL (80-99); MEAN PLATELET VOLUME 10.8 fL (9.0-12.2); MONOCYTES # (AUTO) 0.8 10^3/uL (0.0-1.0); MONOCYTES % (AUTO) 9 % (0-12); NEUTROPHILS # (AUTO) 5.5 10^3/uL (1.8-7.8); NEUTROPHILS % (AUTO) 60 % (42-75); PLATELET COUNT 313 10^3/uL (130-400); WHITE BLOOD COUNT 9.2 10^3/uL (4.3-11.0)
[2022-06-08 14:51] LABS: ALBUMIN 4.1 GM/DL (3.2-4.5); BILIRUBIN,TOTAL 0.3 MG/DL (0.1-1.0); CALCIUM 9.8 MG/DL (8.5-10.1); CREATININE SERUM 1.19 MG/DL (0.60-1.30); POTASSIUM 4.7 MMOL/L (3.6-5.0); TOTAL PROTEIN 7.4 GM/DL (6.4-8.2)
== END ==
LOC: WOUNDCARE 13:06
PROVIDERS: ATTEND Family Medicine
DX: T24.231A Burn of second degree of right lower leg, initial encounter (principal); E11.622 Type 2 diabetes mellitus with other skin ulcer; E11.65 Type 2 diabetes mellitus with hyperglycemia; L24.89 Irritant contact dermatitis due to other agents; E66.01 Morbid (severe) obesity due to excess calories
CPT/HCPCS: 80053; 83036; 85025; A6212; G0463; 36415; 99212

== ENCOUNTER 2022-11-05 08:23 | Inpatient (IN) | payer BC, OTHER ==
[~2022-11-05] VITALS: Ht 182.8 cm; Wt 131.4 kg
[2022-11-05] VITALS (15 sets, daily range): BP systolic 91–133; BP diastolic 55–80
[2022-11-05 08:40] LABS: BASOPHILS # (AUTO) 0.1 10^3/uL (0.0-0.1); BASOPHILS % (AUTO) 1 % (0-10); EOSINOPHILS # (AUTO) 0.2 10^3/uL (0.0-0.3); EOSINOPHILS % (AUTO) 3 % (0-10); HEMATOCRIT 46 % (40-54); HEMOGLOBIN 15.8 g/dL (13.3-17.7); LYMPHOCYTES # (AUTO) 1.8 10^3/uL (1.0-4.0); LYMPHOCYTES % (AUTO) 19 % (12-44); MEAN CORPUSCULAR HEMOGLOBIN 29 pg (25-34); MEAN CORPUSCULAR HGB CONC 34 g/dL (32-36); MEAN CORPUSCULAR VOLUME 85 fL (80-99); MEAN PLATELET VOLUME 10.3 fL (9.0-12.2); MONOCYTES # (AUTO) 0.9 10^3/uL (0.0-1.0); MONOCYTES % (AUTO) 10 % (0-12); NEUTROPHILS # (AUTO) 6.4 10^3/uL (1.8-7.8); NEUTROPHILS % (AUTO) 68 % (42-75); PLATELET COUNT 390 10^3/uL (130-400); WHITE BLOOD COUNT 9.4 10^3/uL (4.3-11.0)
--- NOTE | 2022-11-05 08:40 | ED Chest Pain ---
General Chief Complaint: Cardiac/General Problems Stated Complaint: LT SHOULDER PAIN Nursing Triage Note: LEFT SHOULDER, NAUSEA, SWEATING STARTING AT 0600 TODAY. Source: patient Exam Limitations: no limitations History of Present Illness Date Seen by Provider: Nov 05, 2022 Time Seen by Provider: 08:23 Initial Comments Here with report of left shoulder pain that started at around 6 AM. He thought it might just be shoulder pain but then he started having nausea and sweating. He has pain that radiates across to his back now as well. Does have history of hypertension and then diabetes and is on preventative dose for cholesterol management. He has had previous heart cath x2 but its been several years. He states that he did have some blockage but not enough to stent at the time. He follows with [facility] here but has no local collar folder operator. Pain is persisting now and is an ache and reports the pain at a level of 5-6 out of 10. Timing/Duration: 1-3 hours, changing over time Severity/Quality: moderate, aching, pressure Location: shoulder, back Radiation: arms (Left) Activities at Onset: none Prior CP/Workup: cardiac cath, echocardiography, stress test ASA po HOT KNIFE CUTTER: No NTG SL HOT KNIFE CUTTER: No Associated Symptoms: back pain, diaphoresis, nausea/vomiting; No shortness of breath, No weakness Allergies and Home Medications Allergies Coded Allergies: No Known Drug Allergies (Unverified , 05/23/18) Patient Home Medication List Home Medication List Reviewed: Yes Aspirin (Aspirin) 81 Mg Tab.chew, 81 MG PO DAILY, (Reported) Entered as Reported by: COLT MONREAL on 05/23/18 1316 Glipizide (Glipizide) 5 Mg Tablet, 5 MG PO BID, (Reported) Entered as Reported by: COLT MONREAL on 05/23/18 1316 Insulin Degludec (Tresiba Flextouch U-100) 100 Unit/1 Ml Insuln.pen, 14 UNIT SQ DAILY, (Reported) Entered as Reported by: JULIÁN PARK on 07/17/21 0923 Lisinopril (Lisinopril) 20 Mg Tablet, 20 MG PO DAILY, (Reported) Entered as Reported by: COLT MONREAL on 05/23/18 1316 Metformin HCl (Metformin HCl) 500 Mg Tablet, 1,000 PO BID, (Reported) Entered as Reported by: COLT MONREAL on 05/23/18 131 Metoprolol Succinate (Metoprolol Succinate) 25 Mg Tab.er.24h, 25 MG PO DAILY, (Reported) Entered as Reported by: COLT MONREAL on 05/23/181315 Multivitamin (Multivitamins) 1 Each Tablet, 1 EACH PO DAILY, (Reported) Entered as Reported by: COLT MONREAL on 05/23/181315 Simvastatin (Simvastatin) 40 Mg Tablet, 40 MG PO DAILY, (Reported) Entered as Reported by: COLT MONREAL on 05/23/181315 Venlafaxine HCl (Effexor Xr) 150 Mg Cap.er.24h, 150 MG PO DAILY, (Reported) Entered as Reported by: COLT MONREAL on 05/23/181315 Review of Systems Review of Systems Constitutional: see HPI; No chills, No fever Respiratory: No Symptoms Reported Cardiovascular: See HPI, Chest Pain Gastrointestinal: Nausea, Vomiting Genitourinary: No Symptoms Reported Musculoskeletal: back pain, joint pain Skin: no symptoms reported Psychiatric/Neurological: No Symptoms Reported Past Gsqlvvs-Yexajg-Sozijn Hx Patient Social History Tobacco Use?: No Substance use?: No Alcohol Use?: Yes Alcohol Frequency: Once in a while Immunizations Up To Date First/Initial COVID19 Vaccinat: OCTOBER 2020 Second COVID19 Vaccination Yahir: NOVEMBER 2020 Seasonal Allergies Seasonal Allergies: Yes Past Medical History Surgeries: Yes (UMB HERNIA, HEART CATH X2) Respiratory: Yes Sleep Apnea Currently Using CPAP: Yes Cardiac: Yes High Cholesterol, Hypertension Neurological: No Reproductive Disorders: No Sexually Transmitted Disease: No HIV/AIDS: No Genitourinary: No Gastrointestinal: Yes Musculoskeletal: Yes Arthritis, Chronic Back Pain Endocrine: Yes Diabetes, Non-Insulin dep HEENT: No Loss of Vision: Bilateral Hearing Impairment: Denies Cancer: No Psychosocial: Yes Anxiety, Depression Integumentary: No Blood Disorders: No Adverse Reaction/Blood Tranf: No (N/A) Family Medical History Reviewed Nursing Family Hx Other Conditions/Hx (Lupus) Physical Exam Vital Signs Vital Signs - First Documented 11/05/22 08:23 Temp 36.4 Pulse 61 Resp 16 B/P (MAP) 142/85 (104) Pulse Ox 97 Capillary Refill : Less Than 3 Seconds Height, Weight, BMI Height: 6'1.00" Weight: 330lbs. 3.0oz. 149.707375cq; 38.00 BMI Method:Stated General Appearance: No Apparent Distress, WD/WN, Obese HEENT: PERRL/EOMI, Pharynx Normal Neck: Non Tender, Supple Respiratory: Lungs Clear, Normal Breath Sounds Cardiovascular: Regular Rate, Rhythm, No Murmur Gastrointestinal: Non Tender, Soft Extremity: Normal Range of Motion, Non Tender Neurologic/Psychiatric: Alert, Oriented x3 Skin: Normal Color, Warm/Dry Progress/Results/Core Measures Results/Orders Lab Results Laboratory Tests Test 11/05/22 08:30 11/05/22 08:55 11/05/22 10:03 Range/Units White Blood Count 9.4 4.3-11.0 10^3/uL Red Blood Count 5.44 4.30-5.52 10^6/uL Hemoglobin 15.8 13.3-17.7 g/dL Hematocrit 46 40-54 % Mean Corpuscular Volume 85 80-99 fL Mean Corpuscular Hemoglobin 29 25-34 pg Mean Corpuscular Hemoglobin Concent 34 32-36 g/dL Red Cell Distribution Width 13.0 10.0-14.5 % Platelet Count 390 130-400 10^3/uL Mean Platelet Volume 10.3 9.0-12.2 fL Immature Granulocyte % (Auto) 1 % Neutrophils (%) (Auto) 68 42-75 % Lymphocytes (%) (Auto) 19 12-44 % Monocytes (%) (Auto) 10 0-12 % Eosinophils (%) (Auto) 3 0-10 % Basophils (%) (Auto) 1 0-10 % Neutrophils # (Auto) 6.4 1.8-7.8 10^3/uL Lymphocytes # (Auto) 1.8 1.0-4.0 10^3/uL Monocytes # (Auto) 0.9 0.0-1.0 10^3/uL Eosinophils # (Auto) 0.2 0.0-0.3 10^3/uL Basophils # (Auto) 0.1 0.0-0.1 10^3/uL Immature Granulocyte # (Auto) 0.1 0.0-0.1 10^3/uL Prothrombin Time 13.5 12.2-14.7 SEC INR Comment 1.0 0.8-1.4 Activated Partial Thromboplast Time 32 24-35 SEC Sodium Level 131 L 135-145 MMOL/L Potassium Level 5.4 H 3.6-5.0 MMOL/L Chloride Level 99 98-107 MMOL/L Carbon Dioxide Level 21 21-32 MMOL/L Anion Gap 11 5-14 MMOL/L Blood Urea Nitrogen 23 H 7-18 MG/DL Creatinine 1.45 H 0.60-1.30 MG/DL Estimat Glomerular Filtration Rate 56 BUN/Creatinine Ratio 16 Glucose Level 577 *H 70-105 MG/DL Calcium Level 10.2 H 8.5-10.1 MG/DL Corrected Calcium 10.0 8.5-10.1 MG/DL Magnesium Level 1.9 1.6-2.4 MG/DL Total Bilirubin 0.4 0.1-1.0 MG/DL Aspartate Amino Transf (AST/SGOT) 12 5-34 U/L Alanine Aminotransferase (ALT/SGPT) 20 0-55 U/L Alkaline Phosphatase 108 40-136 U/L Myoglobin 35.4 10.0-92.0 NG/ML Troponin I < 0.028 <0.028 NG/ML C-Reactive Protein High Sensitivity 0.40 0.00-0.50 MG/DL Total Protein 7.7 6.4-8.2 GM/DL Albumin 4.2 3.2-4.5 GM/DL Lipase 24 8-78 U/L Urine Color YELLOW Urine Clarity CLEAR Urine pH 5.5 5-9 Urine Specific [place] 1.010 L 1.016-1.022 Urine Protein NEGATIVE NEGATIVE Urine Glucose (UA) 3+ H NEGATIVE Urine Ketones NEGATIVE NEGATIVE Urine Nitrite NEGATIVE NEGATIVE Urine Bilirubin NEGATIVE NEGATIVE Urine Urobilinogen 0.2 < = 1.0 MG/DL Urine Leukocyte Esterase NEGATIVE NEGATIVE Urine RBC (Auto) NEGATIVE NEGATIVE Urine RBC NONE /HPF Urine WBC NONE /HPF Urine Crystals NONE /LPF Urine Bacteria NEGATIVE /HPF Urine Casts NONE /LPF Urine Mucus NEGATIVE /LPF Urine Culture Indicated NO Glucometer 321 H 70-110 MG/DL My Orders Orders - CARLEY ABREU MD Cbc With Automated Diff (11/05/22 08:32) Magnesium (11/05/22 08:32) Chest 1 View, Ap/Pa Only (11/05/22 08:32) Ekg Tracing (11/05/22 08:32) Comprehensive Metabolic Panel (11/05/22 08:32) Myoglobin Serum (11/05/22 08:32) Protime With Inr (11/05/22 08:32) Partial Thromboplastin Time (11/05/22 08:32) O2 (11/05/22 08:32) Monitor-Rhythm Ecg Trace Only (11/05/22 08:32) Lipid Panel (11/06/22 06:00) Ed Iv/Invasive Line Start (11/05/22 08:32) Troponin I Ceiba (11/05/22 08:32) Nitroglycerin 0.4 Mg Btl 25's (Nitrostat (11/05/22 08:45) Aspirin Chewable Tablet (Baby Aspirin Ch (11/05/22 08:45) Hs C Reactive Protein (11/05/22 08:32) Lipase (11/05/22 08:32) Insulin (Regular) Human (Novolin R (Per (11/05/22 09:01) Ua Culture If Indicated (11/05/22 09:01) Medications Given in ED Current Medications Medications Dose Ordered Sig/All Route Start Time Stop Time Status Last Admin Dose Admin Aspirin 324 mg ONCE ONCE PO 11/05/22 08:45 11/05/22 08:46 DC 11/05/22 08:38 324 MG Nitroglycerin 0.4 mg UD PRN SL 11/05/22 08:45 11/05/22 08:38 0.4 MG Vital Signs/I&O 11/05/22 08:23 Temp 36.4 Pulse 61 Resp 16 B/P (MAP) 142/85 (104) Pulse Ox 97 Blood Pressure Mean: 104 Progress Progress Note : Progress Note Seen and evaluated. IV, labs, EKG and chest x-ray ordered. Labs include CBC, CMP, troponin and lipase. We will initiate ASA 324 mg p.o. as well as nitroglycerin sublingual. If not improved after nitroglycerin, we will initiate morphine IV. Further studies based on current evaluation. Differential diagnosis includes cardiac event, musculoskeletal pain, pancreatitis 1008: Chest x-ray reviewed by me and shows no acute findings on my interpretation. See radiology report for details. Labs reviewed and blood sugar noted to be at 577. We did give insulin 10 units IV. Glucose now down to 321. CBC is overall normal. Chemistries show slightly low sodium at 131 with potassium of 5.4. Serum creatinine 1.45. Glucose as above. LFTs are normal. Magnesium noted to be normal. Troponin was negative. CRP is negative. UA shows 3+ glucose but otherwise normal. I did discuss the case with Dr Christian, collar folder operator on-call.. Did have heart cath in 2009 that did show mild to moderate disease but has not had any cardiac evaluation since. I do believe his risk is increased due to obesity and hypertension as well as uncontrolled diabetes and Dr Christian agrees. Admission indicated. This was discussed with the patient who agrees. Dr Christian will see the patient in consult and wants repeat troponin at 1300. 1030: I have discussed the case with Dr. Neumann, on- call for [facility]. She accepts patient for admission, observation status. All findings and concerns were discussed with patient and family who agree with plan. Initial ECG Impression Date: Nov 05, 2022 Initial ECG Impression Time: 08:27 Initial ECG Rate: 54 Initial ECG Rhythm: Normal Sinus Comment Sinus rhythm with normal axis. No evidence of ST elevation PR. Wandering baseline. Interpreted by me. Diagnostic Imaging Diagonstic Imaging: Xray Plain Films/CT/US/NM/MRI: chest Comments [facility], [place] NAME: BRENTON ALMAGUER [facility] REC#: [id number] PT STATUS: REG ER : 1965 PHYSICIAN: CARLEY ABREU MD ADMIT DATE: 11/05/22/ER Signed Date of Exam:11/05/22 CHEST 1 VIEW, AP/PA ONLY Indication: Diaphoresis and left shoulder pain Portable chest 8:51 AM Heart size appears mildly enlarged. Pulmonary vascularity is upper limits of normal. Lungs are clear. There are no effusions or pneumothoraces. IMPRESSION: Questionable cardiomegaly. Dictated by: Dictated on workstation # [id number] Dict: 11/05/22 0852 Trans: 11/05/22 1024 [facility] [id number] Interpreted by: CARLEY MARIE MD Electronically signed by: CARLEY MARIE MD 11/05/22 1024 Reviewed: Reviewed by Me Departure Communication (Admissions) Time/Spoke to Admitting Phy: 10:30 Time/Spoke to Consulting Phy: 10:08 Impression Primary Impression: Uncontrolled diabetes mellitus with hyperglycemia Qualified Codes: E11.65 - Type 2 diabetes mellitus with hyperglycemia Additional Impression: Chest pain Qualified Codes: R07.9 - Chest pain, unspecified Disposition: 09 ADMITTED INPATIENT Condition: Stable Admissions Decision to Admit Reason: Admit from ER (General) Decision to Admit/Date: Nov 05, 2022 Time/Decision to Admit Time: 10:08 Departure-Patient Inst. Referrals: [facility] (PCP) Primary Care Physician CARLEY ABREU MD Nov 05, 2022 08:40
[2022-11-05] MEDS ORDERED: ASPIRIN 81 MG CHEW (CHILDREN'S ASA) PO ONE (08:45)
[2022-11-05] MEDS ORDERED: NITROGLYCERIN 0.4 MG SL TABS BTL 25'S SL PRN (08:45)
[2022-11-05 08:52] LABS: ALBUMIN 4.2 GM/DL (3.2-4.5); POTASSIUM 5.4 MMOL/L (3.6-5.0); PROTHROMBIN TIME PATIENT 13.5 SEC (12.2-14.7)
[2022-11-05 08:53] LABS: CALCIUM 10.2 MG/DL (8.5-10.1)
[2022-11-05 08:54] LABS: TOTAL PROTEIN 7.7 GM/DL (6.4-8.2)
[2022-11-05 08:56] LABS: BILIRUBIN,TOTAL 0.4 MG/DL (0.1-1.0)
--- NOTE | 2022-11-05 08:56 | Diagnostic Imaging Report ---
Indication: Diaphoresis and left shoulder pain Portable chest 8:51 AM Heart size appears mildly enlarged. Pulmonary vascularity is upper limits of normal. Lungs are clear. There are no effusions or pneumothoraces. IMPRESSION: Questionable cardiomegaly. Dictated by: Dictated on workstation # [id number]
[2022-11-05 08:58] LABS: CREATININE SERUM 1.45 MG/DL (0.60-1.30)
[2022-11-05 09:00] LABS: MAGNESIUM 1.9 MG/DL (1.6-2.4)
[2022-11-05] MEDS ORDERED: inSUlin (REGULAR) HUMAN 1 UNIT/0.01 ML (CHARGE PER UNIT) IV STA (09:01)
[2022-11-05 09:02] LABS: LIPASE 24 U/L (8-78)
[2022-11-05 09:08] LABS: BILIRUBIN,URINE NEGATIVE (NEGATIVE); CLARITY,URINE CLEAR; COLOR,URINE YELLOW; GLUCOSE, URINE (UA) 3+ (NEGATIVE); KETONES,URINE NEGATIVE (NEGATIVE); LEUKOCYTE ESTERASE ,URINE NEGATIVE (NEGATIVE); NITRITE,URINE NEGATIVE (NEGATIVE); PH,URINE 5.5 (5-9); PROTEIN,URINE NEGATIVE (NEGATIVE)
[2022-11-05 09:20] LABS: BACTERIA,URINE NEGATIVE /HPF
[2022-11-05] MEDS ORDERED: ACETAMINOPHEN 325 MG TABLET PO PRN (11:30)
[2022-11-05] MEDS ORDERED: BISACODYL 10 MG SUPP (DULCOLAX) PR PRN (11:30)
[2022-11-05] MEDS ORDERED: NS IV 1000 ML 1,000 ML IV SCH ×2 (11:30→14:01)
[2022-11-05] MEDS ORDERED: polyethylene glycoL POWDER 17 GM (MIRALAX) PACK PO PRN (11:30)
[2022-11-05] MEDS ORDERED: ONDANSETRON 4 MG (ZOFRAN) ORAL DISSOLVE TAB PO PRN (11:30)
[2022-11-05] MEDS ORDERED: MILK OF MAGNESIA 400 MG/5 ML 30 ML UDC PO PRN (11:30)
[2022-11-05] MEDS ORDERED: ONDANSETRON 4 MG/2 ML (SDV) Z0FRAN IV PRN (11:30)
[2022-11-05] MEDS ORDERED: morphine INJ 4 MG/ML 1 ML (VIAL/SYRINGE) IV PRN (11:30)
[2022-11-05] MEDS ORDERED: diphenhydrAMINE 50 MG/ML INJ (BENADRYL) IVP PRN (11:30)
[2022-11-05] MEDS ORDERED: MELATONIN 3 MG TABLET PO PRN (11:30)
[2022-11-05] MEDS ORDERED: diphenhydrAMINE 25 MG TAB (BENADRYL) PO PRN (11:30)
[2022-11-05] MEDS ORDERED: LACTULOSE SYRUP 10GM/15ML (ENULOSE) 30ML UDC PO PRN (11:30)
[2022-11-05] MEDS ORDERED: CALCIUM CARBONATE 500 MG (TUMS) TAB.CHEW PO PRN (11:30)
[2022-11-05] MEDS ORDERED: ANTACID SUSP 30 ML UDC (MYLANTA) PO PRN (11:30)
[2022-11-05] MEDS: ENOXAPARIN 40 MG/0.4 ML (LOVENOX) SYR SC SCH (11:58)
--- NOTE | 2022-11-05 13:19 | Consultation-Cardiology ---
HPI-Cardiology Cardiology Consultation: Date of Consultation 11/05/22 Time Seen by a Provider: 13:10 Date of Admission 11-05-22 Attending Physician [facility] Admitting Physician Admitting Physician: Ale Neumann DO Attending Physician: Ale Neumann DO Consulting Physician Mahi Christian MD HPI: Chief Complaint: NSTEMI Mr. Almaguer is a 57 yr old male admitted to [facility] from the ED. He reports he woke up this morning with aching in his left shoulder which radiated down into his elbow and up into his jaw. He reports he thought it was his existing shoulder injury, however the discomfort did not resolve. He reports he went to work and the aching in his left arm and shoulder was still present; he reports he became nauseated and diaphoretic. He reports he went outside and once he started breathing in the cold air the aching and pressure would radiate across his chest. He reports the discomfort would ease with rest, but did not resolve. He states once he received asa and nitro in the ED the discomfort has resolved and has not returned. He denies any SOB or palpitations. No c/o LE swelling. No c/o syncope or near syncope. No c/o fever or chills. He is currently pain free. Review of Systems-Cardiology Review of Systems Constitutional: No chills, No fever, No malaise Eyes: No vision change Ears/Nose/Throat: No epistaxis, No recent hearing loss Respiratory: As described under HPI Cardiovascular: As described under HPI Gastrointestinal: As described under HPI Genitourinary: No dysuria; other; No urine frequency changes, No urine coloration changes Musculoskeletal: no symptoms reported Skin: other (daughter reports "butterfly rash to face occ"); No ulcerations on exposed areas Psychiatric/Neurological: No anxiety, No depression, No seizure, No focal weakness, No syncope Hematologic: No bleeding abnormalities PII-Cnudjl-Waqtsw Hx Patient Social History 2nd Hand Smoke Exposure: No Have you traveled recently?: No Alcohol Use?: Yes Past Medical History PMH As described under Assessment. Family Medical History Family Medical History: He reports he had a daughter with WPW and a pacemaker. He reporst a sister who has had a stroke. Allergies and Home Medications Allergies Coded Allergies: No Known Drug Allergies (Unverified , 05/23/18) Patient Home Medication List Acetaminophen (Tylenol Extra Strength) 500 Mg Tablet, 1,000 MG PO Q8H PRN for PAIN-MILD (1-4), (Reported) Entered as Reported by: CAROL FITZGERALD on 11/05/221535 Last Action: Reviewed Amoxicillin (Amoxicillin) 875 Mg Tablet, 875 MG PO BID, (Reported) Entered as Reported by: CAROL FITZGERALD on 11/05/221535 Last Action: Reviewed Aspirin (Aspirin) 81 Mg Tab.chew, 81 MG PO DAILY, (Reported) Entered as Reported by: COLT MONREAL on 05/23/181315 Last Action: Reviewed Bupropion HCl (Bupropion Xl) 300 Mg Tab.er.24h, 300 MG PO DAILY, (Reported) Entered as Reported by: CAROL FITZGERALD on 11/05/221535 Last Action: Reviewed Glipizide (Glipizide) 10 Mg Tablet, 10 MG PO BID, (Reported) Entered as Reported by: CAROL FITZGERALD on 11/05/221535 Last Action: Reviewed Ibuprofen (Ibuprofen) 200 Mg Tablet, 800 MG PO Q8H PRN for PAIN-MILD (1-4), (Reported) Entered as Reported by: CAROL FITZGERALD on 11/05/221535 Last Action: Reviewed Liraglutide (Victoza 3-Charles) 0.6 Mg/0.1 Ml (18 Mg/3 Ml) Pen.injctr, 1.2 MG SQ D AILY, (Reported) Entered as Reported by: CAROL FITZGERALD on 11/05/221535 Last Action: Reviewed Lisinopril (Lisinopril) 20 Mg Tablet, 20 MG PO DAILY, (Reported) Entered as Reported by: COLT MONREAL on 05/23/181315 Last Action: Reviewed Metformin HCl (Metformin HCl ER) 500 Mg Tab.er.24h, 1,000 MG PO BID, (Reported) Entered as Reported by: CAROL FITZGERALD on 11/05/221535 Last Action: Reviewed Metoprolol Succinate (Metoprolol Succinate) 25 Mg Tab.er.24h, 25 MG PO DAILY, (Reported) Entered as Reported by: COLT MONREAL on 05/23/181315 Last Action: Reviewed Multivitamin (Multivitamins) 1 Each Tablet, 1 EACH PO DAILY, (Reported) Entered as Reported by: COLT MONREAL on 05/23/181315 Last Action: Reviewed Simvastatin (Simvastatin) 40 Mg Tablet, 40 MG PO HS, (Reported) Entered as Reported by: COLT MONREAL on 05/23/181315 Last Action: Reviewed Venlafaxine HCl (Venlafaxine HCl ER) 75 Mg Cap.er.24h, 225 MG PO DAILY, (Reported) Entered as Reported by: CAROL FITZGERALD on 11/05/221535 Last Action: Reviewed Discontinued Medications Glipizide (Glipizide) 5 Mg Tablet, 5 MG PO BID, (Reported) Discontinued Reason: Duplicate Order Entered as Reported by: COLT MONREAL on 05/23/181315 Last Action: Discontinued Insulin Degludec (Tresiba Flextouch U-100) 100 Unit/1 Ml Insuln.pen, 14 UNIT SQ DAILY, (Reported) Discontinued Reason: No Longer Taking Entered as Reported by: JULIÁN PARK on 07/17/21922 Last Action: Discontinued Metformin HCl (Metformin HCl) 500 Mg Tablet, 1,000 PO BID, (Reported) Discontinued Reason: Duplicate Order Entered as Reported by: COLT MONREAL on 05/23/181315 Last Action: Discontinued Venlafaxine HCl (Effexor Xr) 150 Mg Cap.er.24h, 150 MG PO DAILY, (Reported) Discontinued Reason: No Longer Taking Entered as Reported by: COLT MONREAL on 05/23/181315 Last Action: Discontinued Physical Exam-Cardiology Physical Exam Vital Signs/I&O 11/05/22 11/05/22 11/05/22 11/05/22 21:00 21:15 21:20 21:25 Pulse 61 61 64 63 Resp 16 11 12 13 B/P (MAP) 116/71 (86) 113/80 (91) 105/55 (72) 116/71 (86) Pulse Ox 95 98 97 98 O2 Delivery Room Air Room Air Room Air 11/05/22 11/05/22 11/05/22 11/05/22 21:30 21:35 21:40 22:00 Pulse 64 64 61 62 Resp 11 16 20 10 B/P (MAP) 118/74 (89) 124/60 (81) 114/71 (85) 133/75 (94) Pulse Ox 98 99 95 97 O2 Delivery Room Air Room Air Room Air Room Air 11/05/22 11/06/22 11/06/22 11/06/22 23:00 00:00 00:00 01:00 Temp 36.6 Pulse 65 64 66 Resp 17 14 23 B/P (MAP) 103/66 (78) 128/80 (96) 130/74 (92) Pulse Ox 97 94 94 O2 Delivery Room Air Room Air Room Air 11/06/22 11/06/22 11/06/22 11/06/22 01:00 02:00 02:00 03:00 Temp 36.0 Pulse 65 62 59 Resp 15 28 B/P (MAP) 132/79 (96) 114/85 (95) Pulse Ox 96 96 O2 Delivery Room Air Room Air 11/06/22 11/06/22 11/06/22 11/06/22 04:00 04:00 05:00 06:00 Temp 36.8 Pulse 64 58 62 Resp 15 15 23 B/P (MAP) 118/75 (89) Pulse Ox 96 93 93 O2 Delivery Room Air Room Air Room Air 11/06/22 11/06/22 11/06/22 07:00 07:52 07:58 Temp 36.2 Pulse 65 Pulse Ox 97 O2 Delivery Room Air 11/06/22 00:00 Intake Total 300 ml Output Total 250 ml Balance 50 ml Capillary Refill : Less Than 3 Seconds Constitutional: AAO x 3, well-developed, well-nourished HEENT: PERRL, hearing is well preserved, oral hygience is good Neck: No carotid bruit; carotid pulses are 2 + bilaterally Respiratory: No accessory muscle use, No respiratory distress; chest expansion is symmetric, chest is bilaterally symmetric, lungs clear to auscultation Cardiovascular: regular rate-rhythm; No JVD; S1 and S2 Gastrointestinal: No tender; soft, round, audible bowel sounds Extremities: no lower extremity edema bilateral Neurologic/Psychiatric: grossly intact (moves all extremities) Skin: No rash on exposed areas, No ulcerations on exposed areas Data Review Labs Laboratory Tests 11/05/22 08:30: White Blood Count 9.4, Red Blood Count 5.44, Hemoglobin 15.8, Hematocrit 46, Mean Corpuscular Volume 85, Mean Corpuscular Hemoglobin 29, Mean Corpuscular Hemoglobin Concent 34, Red Cell Distribution Width 13.0, Platelet Count 390, Mean Platelet Volume 10.3, Immature Granulocyte % (Auto) 1, Neutrophils (%) (Auto) 68, Lymphocytes (%) (Auto) 19, Monocytes (%) (Auto) 10, Eosinophils (%) (Auto) 3, Basophils (%) (Auto) 1, Neutrophils # (Auto) 6.4, Lymphocytes # (Auto) 1.8, Monocytes # (Auto) 0.9, Eosinophils # (Auto) 0.2, Basophils # (Auto) 0.1, Immature Granulocyte # (Auto) 0.1, Prothrombin Time 13.5, INR Comment 1.0, Ac tivated Partial Thromboplast Time 32, Sodium Level 131L, Potassium Level 5.4H, Chloride Level 99, Carbon Dioxide Level 21, Anion Gap 11, Blood Urea Nitrogen 23H, Creatinine 1.45H, Estimat Glomerular Filtration Rate 56, BUN/Creatinine Ratio 16, Glucose Level 577*H, Calcium Level 10.2H, Corrected Calcium 10.0, Magnesium Level 1.9, Total Bilirubin 0.4, Aspartate Amino Transf (AST/SGOT) 12, Alanine Aminotransferase (ALT/SGPT) 20, Alkaline Phosphatase 108, Myoglobin 35.4, Troponin I < 0.028, C-Reactive Protein High Sensitivity 0.40, Total Protein 7.7, Albumin 4.2, Lipase 24 11/05/22 08:55: Urine Color YELLOW, Urine Clarity CLEAR, Urine pH 5.5, Urine Specific [place] 1.010L, Urine Protein NEGATIVE, Urine Glucose (UA) 3+H, Urine Ketones NEGATIVE, Urine Nitrite NEGATIVE, Urine Bilirubin NEGATIVE, Urine Urobilinogen 0.2, Urine Leukocyte Esterase NEGATIVE, Urine RBC (Auto) NEGATIVE, Urine RBC NONE, Urine WBC NONE, Urine Crystals NONE, Urine Bacteria NEGATIVE, Urine Casts NONE, Urine Mucus NEGATIVE, Urine Culture Indicated NO 11/05/22 10:03: Glucometer 321H 11/05/22 12:20: Potassium Level 5.3H, Troponin I 0.686*H 11/05/22 16:14: Glucometer 266H 11/05/22 20:47: Glucometer 205H 11/06/22 04:25: White Blood Count 8.9, Red Blood Count 5.23, Hemoglobin 15.2, Hematocrit 45, Mean Corpuscular Volume 86, Mean Corpuscular Hemoglobin 29, Mean Corpuscular Hemoglobin Concent 34, Red Cell Distribution Width 13.2, Platelet Count 300, Mean Platelet Volume 10.3, Immature Granulocyte % (Auto) 0, Neutrophils (%) (Auto) 61, Lymphocytes (%) (Auto) 26, Monocytes (%) (Auto) 10, Eosinophils (%) (Auto) 3, Basophils (%) (Auto) 1, Neutrophils # (Auto) 5.4, Lymphocytes # (Auto) 2.3, Monocytes # (Auto) 0.9, Eosinophils # (Auto) 0.3, Basophils # (Auto) 0.0, Immature Granulocyte # (Auto) 0.0, Sodium Level 136, Potassium Level 4.4, Chlor nolberto Level 103, Carbon Dioxide Level 21, Anion Gap 12, Blood Urea Nitrogen 17, Creatinine 1.02, Estimat Glomerular Filtration Rate 85, BUN/Creatinine Ratio 17, Glucose Level 287H, Calcium Level 9.4, Corrected Calcium 9.6, Phosphorus Level 3.5, Magnesium Level 1.7, Total Bilirubin 0.3, Aspartate Amino Transf (AST/SGOT) 14, Alanine Aminotransferase (ALT/SGPT) 16, Alkaline Phosphatase 91, Total Protein 6.9, Albumin 3.7, Triglycerides Level 500H, Cholesterol Level 195, LDL Cholesterol Direct 110, VLDL Cholesterol , HDL Cholesterol 24L Radiology NAME: [facility] REC#: [id number] PT STATUS: REG ER : 1965 PHYSICIAN: CARLEY ABREU MD ADMIT DATE: 11/05/22/ER Signed Date of Exam:11/05/22 CHEST 1 VIEW, AP/PA ONLY Indication: Diaphoresis and left shoulder pain Portable chest 8:51 AM Heart size appears mildly enlarged. Pulmonary vascularity is upper limits of normal. Lungs are clear. There are no effusions or pneumothoraces. IMPRESSION: Questionable cardiomegaly. Dictated by: Dictated on workstation # [id number] Dict: 11/05/22 0852 Trans: 11/05/22 1024 [facility] [id number] Interpreted by: CARLEY MARIE MD Electronically signed by: CARLEY MARIE MD 11/05/22 1024 ECG Impression ECG Initial ECG Rhythm: Normal Sinus A/P-Cardiology Assessment/Admission Diagnosis NSTEMI DM 2 Peripheral neuropathy Renal insufficiency - likely CRIF secondary to DM HTN - Lisinopril and Toprol at home HLD - statin tx at home KENNY - CPAP tx BPH Tobaccoism - smokes cigars; 3-4/week Occ alcohol usage - 2-3 beers or hard liquor drinks a few days a week Obesity - BMI approx 38 Discussion and Recomendations NSTEMI - Advise cardiac cath. We have discussed the procedure, risks, benefits and potential complications of cardiac cath with possible coronary intervention with pt and family. He is agreeable. We will proceed later today. - ASA, BB, Plavix - Echocardiogram to eval structure and function DM with likely CRIF - IVF to hydrate before and after HLD - statin tx Monitor lab closely Replace electrolytes as indicated Further recs will be based on his hospital course I have spoken with the patient and family in detail regarding plan of care; they are agreeable Discussed plan of care with Dr. Christian Clinical Quality Measures AMI/AHF: ASA po Prior to arrival: ANA Kessler Nov 05, 2022 13:19
--- NOTE | 2022-11-05 13:26 | History & Physical ---
LUH FAUSTIN 11/05/22 1326: History of Present Illness History of Present Illness Reason for visit/HPI Mr. Encinas is a 57 yo M w/ hx of CAD s/p heart cath x2(no stents), HTN, and T2DM who presents after experiencing chest pain this morning. Mr. Encinas says he began having a nonspecific, pressure pain in his left shoulder around 6 AM. He waited for it to pass but began to have nausea and diaphoresis. He stated the pain then radiated to his chest and back. ED workup revealed a troponin level of .686, and blood glucose level of 577. EKG was read as NSTEMI, and cardiology is on board. He states he follows with [facility] for diabetes management. He says he was recently switched to glipizide and off of long acting insulin 30u/day, despite not having adequate sugar control. In room now, he states his pain is 3/10 without nausea, vomiting. He is agreeable to following up with cardiology. Date of Admission Nov 05, 2022 at 11:07 Date Seen by a Provider: Nov 05, 2022 Time Seen by a Provider: 11:30 I consulted on this patient on 11/05/22 13:26 Attending Physician [place] Admitting Physician Admitting Physician: Ale Galindo DO Attending Physician: Ale Galindo DO Consult Allergies and Home Medications Allergies Coded Allergies: No Known Drug Allergies (Unverified , 05/23/18) Patient Home Medication List Home Medication List Reviewed: Yes Acetaminophen (Tylenol Extra Strength) 500 Mg Tablet, 1,000 MG PO Q8H PRN for PAIN-MILD (1-4), (Reported) Entered as Reported by: CAROL FITZGERALD on 11/05/22 1536 Last Action: Reviewed Amoxicillin (Amoxicillin) 875 Mg Tablet, 875 MG PO BID, (Reported) Entered as Reported by: CAROL FITZGERALD on 11/05/22 1536 Last Action: Reviewed Aspirin (Aspirin) 81 Mg Tab.chew, 81 MG PO DAILY, (Reported) Entered as Reported by: COLT MONREAL on 05/23/18 1316 Last Action: Reviewed Bupropion HCl (Bupropion Xl) 300 Mg Tab.er.24h, 300 MG PO DAILY, (Reported) Entered as Reported by: CAROL FITZGERALD on 11/05/221535 Last Action: Reviewed Glipizide (Glipizide) 10 Mg Tablet, 10 MG PO BID, (Reported) Entered as Reported by: CAROL FITZGERALD on 11/05/221535 Last Action: Reviewed Ibuprofen (Ibuprofen) 200 Mg Tablet, 800 MG PO Q8H PRN for PAIN-MILD (1-4), (Reported) Entered as Reported by: CAROL FITZGERALD on 11/05/221535 Last Action: Reviewed Liraglutide (Victoza 3-Charles) 0.6 Mg/0.1 Ml (18 Mg/3 Ml) Pen.injctr, 1.2 MG SQ DAILY, (Reported) Entered as Reported by: CAROL FITZGERALD on 11/05/221535 Last Action: Reviewed Lisinopril (Lisinopril) 20 Mg Tablet, 20 MG PO DAILY, (Reported) Entered as Reported by: COLT MONREAL on 05/23/181315 Last Action: Reviewed Metformin HCl (Metformin HCl ER) 500 Mg Tab.er.24h, 1,000 MG PO BID, (Reported) Entered as Reported by: CAROL FITZGERALD on 11/05/221535 Last Action: Reviewed Metoprolol Succinate (Metoprolol Succinate) 25 Mg Tab.er.24h, 25 MG PO DAILY, (Reported) Entered as Reported by: COLT MONREAL on 05/23/181315 Last Action: Reviewed Multivitamin (Multivitamins) 1 Each Tablet, 1 EACH PO DAILY, (Reported) Entered as Reported by: COLT MONREAL on 05/23/181315 Last Action: Reviewed Simvastatin (Simvastatin) 40 Mg Tablet, 40 MG PO HS, (Reported) Entered as Reported by: COLT MONREAL on 05/23/181315 Last Action: Reviewed Venlafaxine HCl (Venlafaxine HCl ER) 75 Mg Cap.er.24h, 225 MG PO DAILY, (Re ported) Entered as Reported by: CAROL FITZGERALD on 11/05/221535 Last Action: Reviewed Discontinued Medications Glipizide (Glipizide) 5 Mg Tablet, 5 MG PO BID, (Reported) Discontinued Reason: Duplicate Order Entered as Reported by: COLT MONREAL on 05/23/181315 Last Action: Discontinued Insulin Degludec (Tresiba Flextouch U-100) 100 Unit/1 Ml Insuln.pen, 14 UNIT SQ DAILY, (Reported) Discontinued Reason: No Longer Taking Entered as Reported by: JULIÁN PARK on 07/17/21922 Last Action: Discontinued Metformin HCl (Metformin HCl) 500 Mg Tablet, 1,000 PO BID, (Reported) Discontinued Reason: Duplicate Order Entered as Reported by: COLT MONREAL on 05/23/181315 Last Action: Discontinued Venlafaxine HCl (Effexor Xr) 150 Mg Cap.er.24h, 150 MG PO DAILY, (Reported) Discontinued Reason: No Longer Taking Entered as Reported by: COLT MONREAL on 05/23/181315 Last Action: Discontinued Past Cqjdtzc-Xgfyjo-Fcttcx Hx Patient Social History Employed/Student: employed (works for [employer] Tobacco Use?: No Substance use?: No Alcohol Use?: Yes Alcohol type: Beer Alcohol Frequency: Once in a while Additional Alcohol Comments: Daughter at bedside presses him to "be honest" about his alcohol intake Immunizations Up To Date First/Initial COVID19 Vaccinat: OCTOBER 2020 Second COVID19 Vaccination Yahir: NOVEMBER 2020 Seasonal Allergies Seasonal Allergies: Yes Current Status Advance Directives: No Communicates: Verbally Primary Language: Italian Preferred Spoken Language: Italian Is interpretation needed?: No Sensory deficits: Vision impairment Implanted or Applied Medical D: CPAP Past Medical History Sleep Apnea Currently Using CPAP: Yes High Cholesterol, Hypertension Sexually Transmitted Disease: No HIV/AIDS: No Arthritis, Chronic Back Pain Diabetes, Non-Insulin dep Loss of Vision: Bilateral Hearing Impairment: Denies Anxiety, Depression Blood Disorders: No Adverse Reaction/Blood Tranf: No (N/A) Family Medical History Reviewed Nursing Family Hx Other Conditions/Hx (Lupus) Review of Systems Constitutional: No chills, No diaphoresis Physical Exam Vital Signs Vital Signs - First Documented 11/05/22 11/05/22 08:23 10:45 Temp 36.4 Pulse 61 Resp 16 B/P (MAP) 142/85 (104) Pulse Ox 97 O2 Delivery Room Air Capillary Refill : Less Than 3 Seconds Height, Weight, BMI Height: 6'1.00" Weight: 330lbs. 3.0oz. [id number]; 38.84 BMI Method:Stated General Appearance: No Apparent Distress Eyes: Bilateral Eye Normal Inspection HEENT: PERRL/EOMI, Moist Mucous Membranes; No Scleral Icterus (L), No Scleral Icterus (R) Neck: Normal Inspection, Non Tender, Supple Respiratory: Lungs Clear, Normal Breath Sounds, No Respiratory Distress Cardiovascular: Regular Rate, Rhythm, No Edema, No Gallop, No JVD, No Murmur, Normal Peripheral Pulses Gastrointestinal: Non Tender, Soft; No Distended Extremity: Normal Capillary Refill, Normal Inspection, No Calf Tenderness, No Pedal Edema Neurologic/Psychiatric: Alert, Oriented x3, Normal Mood/Affect, bus girl II-XII Norm as Tested, Other (moves all extremities spontaneously) Skin: Normal Color, Warm/Dry; No Diaphoresis Assessment/Plan Assessment and Plan Chest Pain NSTEMI -cards consulted -trop elevated -cxr reviewed -ekg without ST elevations -cards to consider cath T2DM -on glipizide -restarting insulin - 577 glucose on admit, trending down HTN HLD -resume home meds DVT ppx: lovenox Admission Diagnosis Admission Status: Observation Clinical Quality Measures AMI/AHF: ASA po Prior to arrival: ALE Lucero DO 11/06/22 0518: Allergies and Home Medications Allergies Coded Allergies: No Known Drug Allergies (Unverified , 05/23/18) Patient Home Medication List Acetaminophen (Tylenol Extra Strength) 500 Mg Tablet, 1,000 MG PO Q8H PRN for PAIN-MILD (1-4), (Reported) Entered as Reported by: CAROL FITZGERALD on 11/05/221535 Last Action: Reviewed Amoxicillin (Amoxicillin) 875 Mg Tablet, 875 MG PO BID, (Reported) Entered as Reported by: CAROL FITZGERALD on 11/05/221535 Last Action: Reviewed Aspirin (Aspirin) 81 Mg Tab.chew, 81 MG PO DAILY, (Reported) Entered as Reported by: COLT MONREAL on 05/23/18 1316 Last Action: Reviewed Bupropion HCl (Bupropion Xl) 300 Mg Tab.er.24h, 300 MG PO DAILY, (Reported) Entered as Reported by: CAROL FITZGERALD on 11/05/221535 Last Action: Reviewed Glipizide (Glipizide) 10 Mg Tablet, 10 MG PO BID, (Reported) Entered as Reported by: CAROL FITZGERALD on 11/05/221535 Last Action: Reviewed Ibuprofen (Ibuprofen) 200 Mg Tablet, 800 MG PO Q8H PRN for PAIN-MILD (1-4), (Reported) Entered as Reported by: CAROL FITZGERALD on 11/05/221535 Last Action: Reviewed Liraglutide (Victoza 3-Charles) 0.6 Mg/0.1 Ml (18 Mg/3 Ml) Pen.injctr, 1.2 MG SQ DAILY, (Reported) Entered as Reported by: CAROL FITZGERALD on 11/05/221535 Last Action: Reviewed Lisinopril (Lisinopril) 20 Mg Tablet, 20 MG PO DAILY, (Reported) Entered as Reported by: COLT MONREAL on 05/23/181315 Last Action: Reviewed Metformin HCl (Metformin HCl ER) 500 Mg Tab.er.24h, 1,000 MG PO BID, (Reported) Entered as Reported by: CAROL FITZGERALD on 11/05/221535 Last Action: Reviewed Metoprolol Succinate (Metoprolol Succinate) 25 Mg Tab.er.24h, 25 MG PO DAILY, (Reported) Entered as Reported by: COLT MONREAL on 05/23/181315 Last Action: Reviewed Multivitamin (Multivitamins) 1 Each Tablet, 1 EACH PO DAILY, (Reported) Entered as Reported by: COLT MONREAL on 05/23/181315 Last Action: Reviewed Simvastatin (Simvastatin) 40 Mg Tablet, 40 MG PO HS, (Reported) Entered as Reported by: COLT MONREAL on 05/23/181315 Last Action: Reviewed Venlafaxine HCl (Venlafaxine HCl ER) 75 Mg Cap.er.24h, 225 MG PO DAILY, (Reported) Entered as Reported by: CAROL FITZGERALD on 11/05/221535 Last Action: Reviewed Discontinued Medications Glipizide (Glipizide) 5 Mg Tablet, 5 MG PO BID, (Reported) Discontinued Reason: Duplicate Order Entered as Reported by: COLT MONREAL on 05/23/181315 Last Action: Discontinued Insulin Degludec (Tresiba Flextouch U-100) 100 Unit/1 Ml Insuln.pen, 14 UNIT SQ DAILY, (Reported) Discontinued Reason: No Longer Taking Entered as Reported by: JULIÁN PARK on 07/17/21922 Last Action: Discontinued Metformin HCl (Metformin HCl) 500 Mg Tablet, 1,000 PO BID, (Reported) Discontinued Reason: Duplicate Order Entered as Reported by: COLT MONREAL on 05/23/181315 Last Action: Discontinued Venlafaxine HCl (Effexor Xr) 150 Mg Cap.er.24h, 150 MG PO DAILY, (Reported) Discontinued Reason: No Longer Taking Entered as Reported by: COLT MONREAL on 05/23/181315 Last Action: Discontinued Supervisory-Addendum Brief Verification & Attestation Participated in pt care: history, MDM, physical Personally performed: exam, history, MDM, supervision of care Care discussed with: Medical Student Procedures: n/a Results interpretation: Verified all documentation Verification and Attestation of Medical Student E/M Service A medical student performed and documented this service in my presence. I reviewed and verified all information documented by the medical student and made modifications to such information, when appropriate. I personally performed the physical exam and medical decision making. Ale Galindo Nov 06, 2022,05:18 [facility] FAUSTIN Nov 05, 2022 13:26 ALE GALINDO DO Nov 06, 2022 05:18
[2022-11-05] MEDS ORDERED: CLOPIDOGREL 300 MG (PLAVIX) TABLET PO NR (14:30)
[2022-11-05] MEDS ORDERED: GLIP10TA13 PO (15:36)
[2022-11-05] MEDS ORDERED: ACET-2267 PO (15:36)
[2022-11-05] MEDS ORDERED: BUPR300T98 PO (15:36)
[2022-11-05] MEDS ORDERED: VENL75CA93 PO (15:36)
[2022-11-05] MEDS ORDERED: LIRA0.6P3 SQ (15:36)
[2022-11-05] MEDS ORDERED: IBUP-2473 PO (15:36)
[2022-11-05] MEDS ORDERED: METF-865 PO (15:36)
[2022-11-05] MEDS ORDERED: AMOX875T2 PO (15:36)
[2022-11-05] MEDS ORDERED: fentaNYL INJ 100 MCG/2 ML AMP ONE (16:17)
[2022-11-05] MEDS ORDERED: LIDOCAINE 1% INJ 20 ML VIAL ONE (16:17)
[2022-11-05] MEDS ORDERED: HEParin (CATH LAB) 2,000 ML IV ONE (16:17)
[2022-11-05] MEDS ORDERED: NS IV 1000 ML 1,000 ML ONE (16:17)
[2022-11-05] MEDS ORDERED: MIDAZOLAM 5 MG/5 ML (VERSED) VIAL ONE (16:17)
[2022-11-05] MEDS: inSUlin ASPART (NovoLOG) 1 UNIT/0.01 ML (CHARGE PER UNIT) SC SCH ×2 (16:24→21:02)
[2022-11-05] MEDS: inSUlin (REGULAR) HUMAN 1 UNIT/0.01 ML (CHARGE PER UNIT) SC SCH ×2 (16:24→20:53)
[2022-11-05] MEDS ORDERED: NITRO DRIP 25000 MCG/D5W 250 ML IV ONE (17:23)
[2022-11-05] MEDS ORDERED: HEParin 1000 UNIT/ML (10ML VIAL) FOR BOLUS ONE (17:23)
[2022-11-05] MEDS ORDERED: EPTIFIBATIDE BOLUS 20 ML IV ONE (17:24)
[2022-11-05] MEDS ORDERED: EPTIFIBATIDE DRIP 100 ML IV ONE (17:31)
[2022-11-05] MEDS ORDERED: EPTIFIBATIDE BOLUS 10 ML IV ONE (17:34)
[2022-11-05] MEDS ORDERED: ASPIRIN 81 MG CHEW (CHILDREN'S ASA) ONE (18:13)
[2022-11-05] MEDS ORDERED: CLOPIDOGREL 300 MG (PLAVIX) TABLET PO ONE (18:13)
--- NOTE | 2022-11-05 18:31 | Consultation-Cardiology ---
HPI-Cardiology Cardiology Consultation: Date of Consultation 11/05/22 Time Seen by a Provider: 17:00 Date of Admission Attending Physician [facility] Admitting Physician Admitting Physician: Ale Neumann DO Attending Physician: Ale Neumann DO Consulting Physician DANIEL CROWLEY MD, MA, FACP, FACC, FSCAI, CCDS Physician requesting consult: Dr Neumann HPI: Chief Complaint: Reason for Card consult: NSTEMI Mr. Encinas is a 57 yr old male admitted to [facility] from the ED. He reports he woke up this morning with aching in his left shoulder which radiated down into his elbow and up into his jaw. He reports he thought it was his existing shoulder injury, however the discomfort did not resolve. He reports he went to work and the aching in his left arm and shoulder was still present; he reports he became nauseated and diaphoretic. He reports he went outside and once he started breathing in the cold air the aching and pressure would radiate across his chest. He reports the discomfort would ease with rest, but did not resolve. He states once he received asa and nitro in the ED the discomfort has resolved and has not returned. He denies any SOB or palpitations. No c/o LE swelling. No c/o syncope or near syncope. No c/o fever or chills. He is currently pain free. Review of Systems-Cardiology Review of Systems Constitutional: No chills, No fever, No malaise Eyes: No vision change Ears/Nose/Throat: No epistaxis, No recent hearing loss Respiratory: As described under HPI Cardiovascular: As described under HPI Gastrointestinal: As described under HPI Genitourinary: No dysuria; other; No urine frequency changes, No urine coloration changes Musculoskeletal: no symptoms reported Skin: other (daughter reports "butterfly rash to face occ"); No ulcerations on exposed areas Psychiatric/Neurological: No anxiety, No depression, No seizure, No focal weakness, No syncope Hematologic: No bleeding abnormalities CBC-Epvpim-Pypqrc Hx Patient Social History Employed/Student: employed (works for [employer] 2nd Hand Smoke Exposure: No Have you traveled recently?: No Alcohol Use?: Yes Past Medical History PMH As described under Assessment. Family Medical History Family Medical History: He reports he had a daughter with WPW and a pacemaker. He reporst a sister who has had a stroke. Allergies and Home Medications Allergies Coded Allergies: No Known Drug Allergies (Unverified , 05/23/18) Patient Home Medication List Home Medication List Reviewed: Yes Acetaminophen (Tylenol Extra Strength) 500 Mg Tablet, 1,000 MG PO Q8H PRN for PAIN-MILD (1-4), (Reported) Entered as Reported by: CAROL FITZGERALD on 11/05/221535 Last Action: Reviewed Amoxicillin (Amoxicillin) 875 Mg Tablet, 875 MG PO BID, (Reported) Entered as Reported by: CAROL FITZGERALD on 11/05/221535 Last Action: Reviewed Aspirin (Aspirin) 81 Mg Tab.chew, 81 MG PO DAILY, (Reported) Entered as Reported by: COLT MONREAL on 05/23/181315 Last Action: Reviewed Bupropion HCl (Bupropion Xl) 300 Mg Tab.er.24h, 300 MG PO DAILY, (Reported) Entered as Reported by: CAROL FITZGERALD on 11/05/221535 Last Action: Reviewed Glipizide (Glipizide) 10 Mg Tablet, 10 MG PO BID, (Reported) Entered as Reported by: CAROL FITZGERALD on 11/05/221535 Last Action: Reviewed Ibuprofen (Ibuprofen) 200 Mg Tablet, 800 MG PO Q8H PRN for PAIN-MILD (1-4), (Reported) Entered as Reported by: CAROL FITZGERALD on 11/05/221535 Last Action: Reviewed Liraglutide (Victoza 3-Charles) 0.6 Mg/0.1 Ml (18 Mg/3 Ml) Pen.injctr, 1.2 MG SQ DAILY, (Reported) Entered as Reported by: CAROL FITZGERALD on 11/05/221535 Last Action: Reviewed Lisinopril (Lisinopril) 20 Mg Tablet, 20 MG PO DAILY, (Reported) Entered as Reported by: COLT MONREAL on 05/23/181315 Last Action: Reviewed Metformin HCl (Metformin HCl ER) 500 Mg Tab.er.24h, 1,000 MG PO BID, (Reported) Entered as Reported by: CAROL FITZGERALD on 11/05/221535 Last Action: Reviewed Metoprolol Succinate (Metoprolol Succinate) 25 Mg Tab.er.24h, 25 MG PO DAILY, (Reported) Entered as Reported by: COLT MONREAL on 05/23/181315 Last Action: Reviewed Multivitamin (Multivitamins) 1 Each Tablet, 1 EACH PO DAILY, (Reported) Entered as Reported by: COLT MONREAL on 05/23/181315 Last Action: Reviewed Simvastatin (Simvastatin) 40 Mg Tablet, 40 MG PO HS, (Reported) Entered as Reported by: COLT MONREAL on 05/23/181315 Last Action: Reviewed Venlafaxine HCl (Venlafaxine HCl ER) 75 Mg Cap.er.24h, 225 MG PO DAILY, (Reported) Entered as Reported by: CAROL FITZGERALD on 11/05/221535 Last Action: Reviewed Discontinued Medications Glipizide (Glipizide) 5 Mg Tablet, 5 MG PO BID, (Reported) Discontinued Reason: Duplicate Order Entered as Reported by: COLT MONREAL on 05/23/181315 Last Action: Discontinued Insulin Degludec (Tresiba Flextouch U-100) 100 Unit/1 Ml Insuln.pen, 14 UNIT SQ DAILY, (Reported) Discontinued Reason: No Longer Taking Entered as Reported by: JULIÁN PARK on 07/17/21922 Last Action: Discontinued Metformin HCl (Metformin HCl) 500 Mg Tablet, 1,000 PO BID, (Reported) Discontinued Reason: Duplicate Order Entered as Reported by: COLT MONREAL on 05/23/181315 Last Action: Discontinued Venlafaxine HCl (Effexor Xr) 150 Mg Cap.er.24h, 150 MG PO DAILY, (Reported) Discontinued Reason: No Longer Taking Entered as Reported by: COLT MONREAL on 05/23/181315 Last Action: Discontinued Physical Exam-Cardiology Physical Exam Vital Signs/I&O 11/05/22 11/05/22 11/05/22 11/05/22 08:23 10:45 11:00 11:30 Temp 36.4 36.3 Pulse 61 61 65 Resp 16 20 20 B/P (MAP) 142/85 (104) 116/72 91/68 (76) Pulse Ox 97 94 96 O2 Delivery Room Air Room Air Room Air 11/05/22 11/05/22 11/05/22 11/05/22 12:45 12:53 12:58 16:33 Temp 36.3 36.4 Pulse 65 63 66 Resp 16 B/P (MAP) 116/77 (90) Pulse Ox 96 96 96 O2 Delivery Room Air Room Air Capillary Refill : Less Than 3 Seconds Constitutional: AAO x 3, well-developed, well-nourished HEENT: PERRL, hearing is well preserved, oral hygience is good Neck: No carotid bruit; carotid pulses are 2 + bilaterally Respiratory: No accessory muscle use, No respiratory distress; chest expansion is symmetric, chest is bilaterally symmetric, lungs clear to auscultation Cardiovascular: regular rate-rhythm; No JVD; S1 and S2 Gastrointestinal: No tender; soft, round, audible bowel sounds Extremities: no lower extremity edema bilateral Neurologic/Psychiatric: grossly intact (moves all extremities) Skin: No rash on exposed areas, No ulcerations on exposed areas Data Review Labs Laboratory Tests 11/05/22 08:30: White Blood Count 9.4, Red Blood Count 5.44, Hemoglobin 15.8, Hematocrit 46, Mean Corpuscular Volume 85, Mean Corpuscular Hemoglobin 29, Mean Corpuscular Hemoglobin Concent 34, Red Cell Distribution Width 13.0, Platelet Count 390, Mean Platelet Volume 10.3, Immature Granulocyte % (Auto) 1, Neutrophils (%) (Auto) 68, Lymphocytes (%) (Auto) 19, Monocytes (%) (Auto) 10, Eosinophils (%) (Auto) 3, Basophils (%) (Auto) 1, Neutrophils # (Auto) 6.4, Lymphocytes # (Auto) 1.8, Monocytes # (Auto) 0.9, Eosinophils # (Auto) 0.2, Basophils # (Auto) 0.1, Immature Granulocyte # (Auto) 0.1, Prothrombin Time 13.5, INR Comment 1.0, Activated Partial Thromboplast Time 32, Sodium Level 131L, Potassium Level 5.4H, Chloride Level 99, Carbon Dioxide Level 21, Anion Gap 11, Blood Urea Nitrogen 23H, Creatinine 1.45H, Estimat Glomerular Filtration Rate 56, BUN/Creatinine Ratio 16, Glucose Level 577*H, Calcium Level 10.2H, Corrected Calcium 10.0, Magnesium Level 1.9, Total Bilirubin 0.4, Aspartate Amino Transf (AST/SGOT) 12, Alanine Aminotransferase (ALT/SGPT) 20, Alkaline Phosphatase 108, Myoglobin 35.4, Troponin I < 0.028, C-Reactive Protein High Sensitivity 0.40, Total Protein 7.7, Albumin 4.2, Lipase 24 11/05/22 08:55: Urine Color YELLOW, Urine Clarity CLEAR, Urine pH 5.5, Urine Specific Industry 1.010L, Urine Protein NEGATIVE, Urine Glucose (UA) 3+H, Urine Ketones NEGATIVE, Urine Nitrite NEGATIVE, Urine Bilirubin NEGATIVE, Urine Urobilinogen 0.2, Urine Leukocyte Esterase NEGATIVE, Urine RBC (Auto) NEGATIVE, Urine RBC NONE, Urine WBC NONE, Urine Crystals NONE, Urine Bacteria NEGATIVE, Urine Casts NONE, Urine Mucus NEGATIVE, Urine Culture Indicated NO 11/05/22 10:03: Glucometer 321H 11/05/22 12:20: Potassium Level 5.3H, Troponin I 0.686*H 11/05/22 16:14: Glucometer 266H A/P-Cardiology Assessment/Admission Diagnosis NSTEMI - treated with PCI (see below) CAD - card cath on 11/05/22: LMCA ok, LAD mild to mod diffuse plaque, small caliber D2 with 99% ostial and prox stenosis, LCx 95% mid, RCA dominant with 80% distal bifurcation stenosis, LVEDP 13 mmHg - PCI on 11/05/22: LCx 95% -> 0% (Skypoint JOSSIE 3.5 x 15 mm) - PCI on 11/05/22: D2 99% -> less than 50% (balloon-only angioplasty) - Anticipated PCI: distal bifurcation stenosis of the dominant RCA - plan after allowing 1-2 weeks to reduce risk of contrast nephropathy, given baseline renal insuff DM 2 Peripheral neuropathy 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 If unstable symptoms, then proceed accordingly * Dr. Cantu will be covering Cardiology for the next several days Clinical Quality Measures AMI/AHF: ASA po Prior to arrival: DANIEL Villanueva MD FACP FAC CCDS Nov 05, 2022 18:31
--- NOTE | 2022-11-05 18:49 | Cardiac Cath Report ---
CARDIAC CATHETERIZATION DATE OF PROCEDURE: 11/05/22 INDICATION: NSTEMI HISTORY: The patient is a 57 year old male with multiple cor risk factors and acute NSTEMI PROCEDURES PERFORMED: 1. Card cath and coronary angio 2. PCI to LCx (stent) and LAD D2 (balloon only) PROCEDURE DESCRIPTION: After informed consent and in the fasting state, left heart catheterization was performed through the R femoral artery utilizing a 6 Serbian system by percutaneous approach. Standard Rolando catheters were utilized for the diagnostic portion of the procedure HEMODYNAMICS: LVEDP 13 mmHg CORONARY ANGIOGRAPHY: Left main coronary artery: Ok Left anterior descending coronary artery: Diffuse mild to mod plaque; small caliber D2 with 99% prox and ostial stenosis Left circumflex coronary artery: up to 95% mid vessel stenosis Right coronary artery: Dominant. 80% distal bifurcation stenosis PERCUTANEOUS CORONARY INTERVENTION: 1. LCx (stenting): Pre- 95% with SUBHA 2; Post- 0% with SUBHA 3; Guide JL-4; Wire- Choice Floppy; Balloon 3.0 x 30; Stent- Skypoint 3.5 x 15 2. LAD D2 (balloon only): Pre- 99% with SUBHA 2; Post- <50% with SUBHA 3; Guide JL-4; Wire- Choice Floppy; Balloon 2.0 x 30 DANIEL CROWLEY MD [facility] Nov 05, 2022 18:49
[2022-11-05] MEDS ORDERED: PATIENT MAY USE OWN MEDS, ALL PO SCH (19:00)
[2022-11-05] MEDS: NS IV 1000 ML 1,000 ML IV SCH (19:12)
--- NOTE | 2022-11-05 20:00 | Tele-ICU Progress Note ---
Progress Note 57M with DM, CKD, HTN, HLD, BPH admitted with NSTEMI, now s/p cath. Awoke this AM with L shoulder pain radiating to elbow and jaw which was persistant. After arriving at work became nauseated and diaphoretic. Then pressure began to radiate across chest. Symptoms improved with rest but did not resolve. In ED received ASA and nitro with complete resolution of pain. Taken for urgent cath with JOSSIE to 95% LCx which improved to 0%., balloon only angioplasty to 99%D2 w hich improved to <50%. A/P: - CAD/NSTEMI: now s/p cath with intervention as above. DAPT, BB, statin. Noted to have a remaining RCA lesion that was not thought to be the culprit. Plan for intervention at a later date in order to reduce the risk of contrast nephropathy. If he has further anginal symptoms, will reassess. Cardiology managing. Sheath still in place. Will pull per protocol. - DM: levemir, HDSS +10u. A1C pending. - HTN: continue home lisinopril and toprol. - CKD: secondary to diabetic nephropathy. Monitor for NANDO over the next 48-72 hours. Patient assessed via real-time audiovisual communication system. CCT 10 min Focused Exam Height, Weight, BMI Height: 6'1.00" Weight: 330lbs. 3.0oz. [id number]; 38.84 BMI Method:Stated TATE MURILLO MD Nov 05, 2022 20:00
[2022-11-05] MEDS: DOCUSATE SODIUM 100 MG (COLACE) CAP PO SCH (20:03)
[2022-11-05] MEDS: SENNOSIDES 8.6 MG (SENOKOT) TAB PO SCH (20:04)
[2022-11-05] MEDS ORDERED: ATROPINE INJ 0.4 MG/ML SDV ONE (20:58)
[2022-11-06] VITALS (14 sets, daily range): BP systolic 114–147; BP diastolic 49–101
[2022-11-06 04:35] LABS: BASOPHILS % (AUTO) 1 % (0-10); EOSINOPHILS # (AUTO) 0.3 10^3/uL (0.0-0.3); EOSINOPHILS % (AUTO) 3 % (0-10); HEMATOCRIT 45 % (40-54); HEMOGLOBIN 15.2 g/dL (13.3-17.7); LYMPHOCYTES # (AUTO) 2.3 10^3/uL (1.0-4.0); LYMPHOCYTES % (AUTO) 26 % (12-44); MEAN CORPUSCULAR HEMOGLOBIN 29 pg (25-34); MEAN CORPUSCULAR HGB CONC 34 g/dL (32-36); MEAN CORPUSCULAR VOLUME 86 fL (80-99); MEAN PLATELET VOLUME 10.3 fL (9.0-12.2); MONOCYTES # (AUTO) 0.9 10^3/uL (0.0-1.0); MONOCYTES % (AUTO) 10 % (0-12); NEUTROPHILS # (AUTO) 5.4 10^3/uL (1.8-7.8); NEUTROPHILS % (AUTO) 61 % (42-75); PLATELET COUNT 300 10^3/uL (130-400); WHITE BLOOD COUNT 8.9 10^3/uL (4.3-11.0)
[2022-11-06 04:40] LABS: CHLORIDE 103 MMOL/L (98-107); POTASSIUM 4.4 MMOL/L (3.6-5.0); SODIUM 136 MMOL/L (135-145)
[2022-11-06 04:41] LABS: ALBUMIN 3.7 GM/DL (3.2-4.5); CALCIUM 9.4 MG/DL (8.5-10.1)
[2022-11-06 04:42] LABS: TRIGLYCERIDES 500 MG/DL (<150)
[2022-11-06 04:43] LABS: GLUCOSE 287 MG/DL (70-105); TOTAL PROTEIN 6.9 GM/DL (6.4-8.2)
[2022-11-06 04:44] LABS: CARBON DIOXIDE 21 MMOL/L (21-32)
[2022-11-06 04:45] LABS: BILIRUBIN,TOTAL 0.3 MG/DL (0.1-1.0)
[2022-11-06 04:46] LABS: PHOSPHORUS 3.5 MG/DL (2.3-4.7)
[2022-11-06 04:47] LABS: ALKALINE PHOSPHATASE 91 U/L (40-136); CHOLESTEROL 195 MG/DL (< 200); CREATININE SERUM 1.02 MG/DL (0.60-1.30); GFR ESTIMATED 85
[2022-11-06 04:48] LABS: BUN/CREATININE RATIO 17
[2022-11-06 04:49] LABS: HDL CHOLESTEROL 24 MG/DL (40-60); MAGNESIUM 1.7 MG/DL (1.6-2.4)
[2022-11-06 04:50] LABS: ALANINE AMINOTRANSFERASE 16 U/L (0-55)
[2022-11-06] MEDS: NS IV 1000 ML 1,000 ML IV SCH (05:00)
[2022-11-06] MEDS ORDERED: NS IV 500 ML 500 ML IV PRN (05:15)
[2022-11-06] MEDS ORDERED: MAGNESIUM 1 GM/100 ML IVPB 100 ML IV SCH (06:00)
[2022-11-06] MEDS ORDERED: KCL 20 MEQ TAB (K-DUR) PO SCH (06:00)
[2022-11-06] MEDS ORDERED: POTASSIUM CL 10MEQ/50ML IVPB 50 ML IV SCH (06:00)
[2022-11-06] MEDS: inSUlin ASPART (NovoLOG) 1 UNIT/0.01 ML (CHARGE PER UNIT) SC SCH ×2 (06:29→11:39)
[2022-11-06] MEDS: inSUlin (REGULAR) HUMAN 1 UNIT/0.01 ML (CHARGE PER UNIT) SC SCH (06:29)
[2022-11-06] MEDS: MAGNESIUM 1 GM/100 ML IVPB 100 ML IV SCH ×3 (06:30→09:20)
[2022-11-06] MEDS: DOCUSATE SODIUM 100 MG (COLACE) CAP PO SCH (08:37)
[2022-11-06] MEDS: SENNOSIDES 8.6 MG (SENOKOT) TAB PO SCH (08:38)
[2022-11-06] MEDS ORDERED: CLOPIDOGREL 75 MG (PLAVIX) TABLET PO SCH (09:00)
[2022-11-06] MEDS ORDERED: ASPIRIN 81 MG CHEW (CHILDREN'S ASA) PO SCH (09:00)
[2022-11-06] MEDS ORDERED: inSUlin (REGULAR) HUMAN 1 UNIT/0.01 ML (CHARGE PER UNIT) SC SCH (11:00)
[2022-11-06] MEDS: ENOXAPARIN 40 MG/0.4 ML (LOVENOX) SYR SC SCH (11:40)
--- NOTE | 2022-11-06 11:50 | Progress Note - Hospitalist ---
[facility] FAUSTIN 11/06/22 1150: Subjective HPI/CC On Admission Date Seen by Provider: Nov 06, 2022 Time Seen by Provider: 11:00 Subjective/Events-last exam Mr. Encinas is feeling well today. he denies chest pain, SOB. He understands plan to do another heart cath today per cards. Discussed diabetes meds with him, he notes he will need insulin prescription sent to pharmacy after dc. Review of Systems Pulmonary: No Dyspnea Cardiovascular: No: Chest Pain, Palpitations Gastrointestinal: No: Nausea, Vomiting, Abdominal Pain Objective Exam Vital Signs Vital Signs Date Time Temp Pulse Resp B/P (MAP) Pulse Ox O2 Delivery O2 Flow Rate FiO2 11/06/22 11:00 89 27 131/81 (98) 94 Room Air 11/06/22 07:52 36.2 Capillary Refill : Less Than 3 Seconds General Appearance: No Apparent Distress, Obese HEENT: PERRL/EOMI, Moist Mucous Membranes; No Scleral Icterus (L), No Scleral Icterus (R) Neck: Non Tender, Supple Respiratory: Normal Breath Sounds, No Accessory Muscle Use, No Respiratory Distress Cardiovascular: Regular Rate, Rhythm, No JVD, No Murmur, Normal Peripheral Pulses Gastrointestinal: Non Tender, Soft; No Distended Extremity: Normal Capillary Refill, Normal Inspection, No Pedal Edema Neurologic/Psychiatric: Alert, Oriented x3, Normal Mood/Affect Skin: Normal Color, Warm/Dry Results/Procedures Lab Laboratory Tests 11/05/22 12:20 11/06/22 04:25 Patient resulted labs reviewed. 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 T2DM -on glipizide -restarting insulin - 577 glucose on admit, trending down -Increasing levemir to 40u bid, regular insulin 15u AC HTN HLD -resume home meds DVT ppx: per cards Clinical Quality Measures Admission Status Admission Dx Chest Pain NSTEMI -cards consulted -trop elevated -cxr reviewed -ekg without ST elevations -cards to consider cath T2DM -on glipizide -restarting insulin - 577 glucose on admit, trending down HTN HLD -resume home meds DVT ppx: lovenox AMI/AHF: ASA po Prior to arrival: No ALE GALINDO DO 11/07/22 0614: Supervisory-Addendum Brief Verification & Attestation Participated in pt care: history, MDM, physical Personally performed: exam, history, MDM, supervision of care Care discussed with: Medical Student Procedures: n/a Results interpretation: Verified all documentation Verification and Attestation of Medical Student E/M Service A medical student performed and documented this service in my presence. I reviewed and verified all information documented by the medical student and made modifications to such information, when appropriate. I personally performed the physical exam and medical decision making. Ale Galindo, Nov 07, 2022,06:14 [facility] Nov 06, 2022 11:50 ALE GALINDO DO Nov 07, 2022 06:14
--- NOTE | 2022-11-06 12:05 | Cardiology Progress Note ---
Subjective Date Seen by Provider: Nov 06, 2022 Time Seen by Provider: 11:00 Exam Vital Signs Vital Signs Date Time Temp Pulse Resp B/P (MAP) Pulse Ox O2 Delivery O2 Flow Rate FiO2 11/06/22 11:00 89 27 131/81 (98) 94 Room Air 11/06/22 07:52 36.2 Physical Exam Gen: No acute distress;' A+O x 3, sitting comfortably in the bed Neck: soft supple, no cervical LAD Luns: CTA-bilaterally, no wheezing, rales or rhonchi CV: nl s1/s2, no m-g-r, RRR Abd: soft nt nd, no HSM, + BS Ext: wwp, no c-c-e; 2+ DP and femoral pulses skin: no lesions rashes or ecchymoses are noted. Labs Laboratory Tests Test 11/05/22 12:20 11/05/22 16:14 11/05/22 20:47 11/06/22 04:25 Range/Units Potassium Level 5.3 H 4.4 3.6-5.0 MMOL/L Troponin I 0.686 *H <0.028 NG/ML Glucometer 266 H 205 H 70-110 MG/DL White Blood Count 8.9 4.3-11.0 10^3/uL Red Blood Count 5.23 4.30-5.52 10^6/uL Hemoglobin 15.2 13.3-17.7 g/dL Hematocrit 45 40-54 % Mean Corpuscular Volume 86 80-99 fL Mean Corpuscular Hemoglobin 29 25-34 pg Mean Corpuscular Hemoglobin Concent 34 32-36 g/dL Red Cell Distribution Width 13.2 10.0-14.5 % Platelet Count 300 130-400 10^3/uL Mean Platelet Volume 10.3 9.0-12.2 fL Immature Granulocyte % (Auto) 0 % Neutrophils (%) (Auto) 61 42-75 % Lymphocytes (%) (Auto) 26 12-44 % Monocytes (%) (Auto) 10 0-12 % Eosinophils (%) (Auto) 3 0-10 % Basophils (%) (Auto) 1 0-10 % Neutrophils # (Auto) 5.4 1.8-7.8 10^3/uL Lymphocytes # (Auto) 2.3 1.0-4.0 10^3/uL Monocytes # (Auto) 0.9 0.0-1.0 10^3/uL Eosinophils # (Auto) 0.3 0.0-0.3 10^3/uL Basophils # (Auto) 0.0 0.0-0.1 10^3/uL Immature Granulocyte # (Auto) 0.0 0.0-0.1 10^3/uL Sodium Level 136 135-145 MMOL/L Chloride Level 103 98-107 MMOL/L Carbon Dioxide Level 21 21-32 MMOL/L Anion Gap 12 5-14 MMOL/L Blood Urea Nitrogen 17 7-18 MG/DL Creatinine 1.02 0.60-1.30 MG/DL Estimat Glomerular Filtration Rate 85 BUN/Creatinine Ratio 17 Glucose Level 287 H 70-105 MG/DL Calcium Level 9.4 8.5-10.1 MG/DL Corrected Calcium 9.6 8.5-10.1 MG/DL Phosphorus Level 3.5 2.3-4.7 MG/DL Magnesium Level 1.7 1.6-2.4 MG/DL Total Bilirubin 0.3 0.1-1.0 MG/DL Aspartate Amino Transf (AST/SGOT) 14 5-34 U/L Alanine Aminotransferase (ALT/SGPT) 16 0-55 U/L Alkaline Phosphatase 91 40-136 U/L Total Protein 6.9 6.4-8.2 GM/DL Albumin 3.7 3.2-4.5 GM/DL Triglycerides Level 500 H <150 MG/DL Cholesterol Level 195 < 200 MG/DL LDL Cholesterol Direct 110 1-129 MG/DL VLDL Cholesterol 5-40 MG/DL HDL Cholesterol 24 L 40-60 MG/DL Test 11/06/22 10:47 Range/Units Glucometer 264 H 70-110 MG/DL A/P-Cardiology Assessment/Plan 57M with hx of HTN, HLD, KENNY on CPAP, BPH and tobacco ism who presents for evaluation of chest-shoulder discomfort/SoB/diaphoresis found to have NSTEMI. ## NSTEMI: pt doing well today. no chest pain. has been up and walking around in room without issues. - f/u Tn today ## CAD s/p PCI ((Skypoint JOSSIE 3.5 x 15 mm) to LCx and POBA to Diag-99% -> less than 50% (balloon-only angioplasty) - cont with ASA/Plavix/.Topril/Atorva for now - HRs in 50s, decrease toprol XL to 12.5mg po QD - start lisinopril 2.5mg po QD - f/u TTE prior to discharge - will plan to discharge and bring back for PCI to distal bifurcation in 1-2 weeks. 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
[2022-11-06] MEDS ORDERED: FENO134C21 PO (15:41)
[2022-11-06] MEDS ORDERED: ASPI-999 PO (15:41)
[2022-11-06] MEDS ORDERED: INSU100I51 SQ (15:41)
[2022-11-06] MEDS ORDERED: INSU100I29 SQ (15:41)
[2022-11-06] MEDS ORDERED: MTP25TSR PO (15:41)
[2022-11-06] MEDS ORDERED: ATOR80TA76 PO (15:41)
[2022-11-06] MEDS ORDERED: CLOP75TA28 PO (15:41)
[2022-11-06] MEDS ORDERED: LISI5TAB20 PO (15:41)
[2022-11-06] MEDS ORDERED: PEN-53 MC (15:41)
[2022-11-06] MEDS ORDERED: NITR0.4T42 SL (15:41)
--- NOTE | 2022-11-06 15:42 | Discharge Summary ---
Diagnosis/Chief Complaint Date of Admission Nov 05, 2022 at 11:27 Date of Discharge Discharge Date: Nov 06, 2022 Discharge Diagnosis Unstable angina CAD s/p stents DM OOC Discharge Summary Discharge Physical Examination Allergies: Coded Allergies: No Known Drug Allergies (Unverified , 05/23/18) Vitals & I&Os Vital Signs Date Time Temp Pulse Resp B/P (MAP) Pulse Ox O2 Delivery O2 Flow Rate FiO2 11/06/22 16:25 11/06/22 15:00 75 18 97 Room Air 11/06/22 12:01 36.0 General Appearance: Alert, Oriented X3, Cooperative Respiratory: Clear to Auscultation Cardiovascular: Regular Rate Psych/Mental Status: Mental Status NL Hospital Course Was the Problem List Reviewed?: Yes Uneventful course after admitted for chest pain and hyperglycemia. Underwent cath with stent placement. 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 He was assessed to be ready for DC and all meds including insulin sent to pharmacy Labs (last 24 hrs) Laboratory Tests 11/05/22 08:30: White Blood Count 9.4, Red Blood Count 5.44, Hemoglobin 15.8, Hematocrit 46, Mean Corpuscular Volume 85, Mean Corpuscular Hemoglobin 29, Mean Corpuscular Hemoglobin Concent 34, Red Cell Distribution Width 13.0, Platelet Count 390, Mean Platelet Volume 10.3, Immature Granulocyte % (Auto) 1, Neutrophils (%) (Auto) 68, Lymphocytes (%) (Auto) 19, Monocytes (%) (Auto) 10, Eosinophils (%) (Auto) 3, Basophils (%) (Auto) 1, Neutrophils # (Auto) 6.4, Lymphocytes # (Auto) 1.8, Monocytes # (Auto) 0.9, Eosinophils # (Auto) 0.2, Basophils # (Auto) 0.1, Immature Granulocyte # (Auto) 0.1, Prothrombin Time 13.5, INR Comment 1.0, Activated Partial Thromboplast Time 32, Sodium Level 131L, Potassium Level 5.4H, Chloride Level 99, Carbon Dioxide Level 21, Anion Gap 11, Blood Urea Nitrogen 23H, Creatinine 1.45H, Estimat Glomerular Filtration Rate 56, BUN/Creatinine Ratio 16, Glucose Level 577*H, Calcium Level 10.2H, Corrected Calcium 10.0, Magnesium Level 1.9, Total Bilirubin 0.4, Aspartate Amino Transf (AST/SGOT) 12, Alanine Aminotransferase (ALT/SGPT) 20, Alkaline Phosphatase 108, Myoglobin 35.4, Troponin I < 0.028, C-Reactive Protein High Sensitivity 0.40, Total Protein 7.7, Albumin 4.2, Lipase 24 11/05/22 08:55: Urine Color YELLOW, Urine Clarity CLEAR, Urine pH 5.5, Urine Specific [place] 1.010L, Urine Protein NEGATIVE, Urine Glucose (UA) 3+H, Urine Ketones NEGATIVE, Urine Nitrite NEGATIVE, Urine Bilirubin NEGATIVE, Urine Urobilinogen 0.2, Urine Leukocyte Esterase NEGATIVE, Urine RBC (Auto) NEGATIVE, Urine RBC NONE, Urine WBC NONE, Urine Crystals NONE, Urine Bacteria NEGATIVE, Urine Casts NONE, Urine Mucus NEGATIVE, Urine Culture Indicated NO 11/05/22 10:03: Glucometer 321H 11/05/22 12:20: Potassium Level 5.3H, Troponin I 0.686*H 11/05/22 16:14: Glucometer 266H 11/05/22 20:47: Glucometer 205H 11/06/22 04:25: White Blood Count 8.9, Red Blood Count 5.23, Hemoglobin 15.2, Hematocrit 45, Mean Corpuscular Volume 86, Mean Corpuscular Hemoglobin 29, Mean Corpuscular Hemoglobin Concent 34, Red Cell Distribution Width 13.2, Platelet Count 300, Mean Platelet Volume 10.3, Immature Granulocyte % (Auto) 0, Neutrophils (%) (Auto) 61, Lymphocytes (%) (Auto) 26, Monocytes (%) (Auto) 10, Eosinophils (%) (Auto) 3, Basophils (%) (Auto) 1, Neutrophils # (Auto) 5.4, Lymphocytes # (Auto) 2.3, Monocytes # (Auto) 0.9, Eosinophils # (Auto) 0.3, Basophils # (Auto) 0.0, Immature Granulocyte # (Auto) 0.0, Sodium Level 136, Potassium Level 4.4, Chloride Level 103, Carbon Dioxide Level 21, Anion Gap 12, Blood Urea Nitrogen 17, Creatinine 1.02, Estimat Glomerular Filtration Rate 85, BUN/Creatinine Ratio 17, Glucose Level 287H, Calcium Level 9.4, Corrected Calcium 9.6, Phosphorus Level 3.5, Magnesium Level 1.7, Total Bilirubin 0.3, Aspartate Amino Transf (AST/SGOT) 14, Alanine Aminotransferase (ALT/SGPT) 16, Alkaline Phosphatase 91, Troponin I 0.501*H, Total Protein 6.9, Albumin 3.7, Triglycerides Level 500H, Ch olesterol Level 195, LDL Cholesterol Direct 110, VLDL Cholesterol , HDL Cholesterol 24L, Amylase Level 166H, Lipase 65 11/06/22 10:47: Glucometer 264H Microbiology 11/05/22 MRSA Screen - Final, Complete MRSA not isolated Pending Labs Microbiology Date/Time Source Procedure Growth Status 11/05/22 16:17 Nasal MRSA Screen - Final MRSA not isolated Complete Laboratory Tests 11/05/22 08:30: White Blood Count 9.4, Red Blood Count 5.44, Hemoglobin 15.8, Hematocrit 46, Mean Corpuscular Volume 85, Mean Corpuscular Hemoglobin 29, Mean Corpuscular Hemoglobin Concent 34, Red Cell Distribution Width 13.0, Platelet Count 390, Mean Platelet Volume 10.3, Immature Granulocyte % (Auto) 1, Neutrophils (%) (Auto) 68, Lymphocytes (%) (Auto) 19, Monocytes (%) (Auto) 10, Eosinophils (%) (Auto) 3, Basophils (%) (Auto) 1, Neutrophils # (Auto) 6.4, Lymphocytes # (Auto) 1.8, Monocytes # (Auto) 0.9, Eosinophils # (Auto) 0.2, Basophils # (Auto) 0.1, Immature Granulocyte # (Auto) 0.1, Prothrombin Time 13.5, INR Comment 1.0, Activated Partial Thromboplast Time 32, Sodium Level 131, Potassium Level 5.4, Chloride Level 99, Carbon Dioxide Level 21, Anion Gap 11, Blood Urea Nitrogen 23, Creatinine 1.45, Estimat Glomerular Filtration Rate 56, BUN/Creatinine Ratio 16, Glucose Level 577, Calcium Level 10.2, Corrected Calcium 10.0, Magnesium Level 1.9, Total Bilirubin 0.4, Aspartate Amino Transf (AST/SGOT) 12, Alanine Aminotransferase (ALT/SGPT) 20, Alkaline Phosphatase 108, Myoglobin 35.4, Troponin I < 0.028, C-Reactive Protein High Sensitivity 0.40, Total Protein 7.7, Albumin 4.2, Lipase 24 11/05/22 08:55: Urine Color YELLOW, Urine Clarity CLEAR, Urine pH 5.5, Urine Specific [place] 1.010, Urine Protein NEGATIVE, Urine Glucose (UA) 3+, Urine Ketones NEGATIVE, Urine Nitrite NEGATIVE, Urine Bilirubin NEGATIVE, Urine Urobilinogen 0.2, Urine Leukocyte Esterase NEGATIVE, Urine RBC (Auto) NEGATIVE, Urine RBC NONE, Urine WBC NONE, Urine Crystals NONE, Urine Bacteria NEGATIVE, Urine Casts NONE, Urine Mucus NEGATIVE, Urine Culture Indicated NO 11/05/22 10:03: Glucometer 321 11/05/22 12:20: Potassium Level 5.3, Troponin I 0.686 11/05/22 16:14: Glucometer 266 11/05/22 20:47: Glucometer 205 11/06/22 04:25: White Blood Count 8.9, Red Blood Count 5.23, Hemoglobin 15.2, Hematocrit 45, Mean Corpuscular Volume 86, Mean Corpuscular Hemoglobin 29, Mean Corpuscular Hemoglobin Concent 34, Red Cell Distribution Width 13.2, Platelet Count 300, Mean Platelet Volume 10.3, Immature Granulocyte % (Auto) 0, Neutrophils (%) (Auto) 61, Lymphocytes (%) (Auto) 26, Monocytes (%) (Auto) 10, Eosinophils (%) (Auto) 3, Basophils (%) (Auto) 1, Neutrophils # (Auto) 5.4, Lymphocytes # (Auto) 2.3, Monocytes # (Auto) 0.9, Eosinophils # (Auto) 0.3, Basophils # (Auto) 0.0, Immature Granulocyte # (Auto) 0.0, Sodium Level 136, Potassium Level 4.4, Chloride Level 103, Carbon Dioxide Level 21, Anion Gap 12, Blood Urea Nitrogen 17, Creatinine 1.02, Estimat Glomerular Filtration Rate 85, BUN/Creatinine Ratio 17, Glucose Level 287, Calcium Level 9.4, Corrected Calcium 9.6, Phosphorus Level 3.5, Magnesium Level 1.7, Total Bilirubin 0.3, Aspartate Amino Transf (AST/SGOT) 14, Alanine Aminotransferase (ALT/SGPT) 16, Alkaline Phosphatase 91, Troponin I 0.501, Total Protein 6.9, Albumin 3.7, Triglycerides Level 500, Cholesterol Level 195, LDL Cholesterol Direct 110, VLDL Cholesterol , HDL Cholesterol 24, Amylase Level 166, Lipase 65 11/06/22 10:47: Glucometer 264 Discharge Home Medications: Active Scripts Active Advocate Pen Needle (Pen Needle, Diabetic) 33 Gauge X 5/32" Dis.needle Each ACHS NovoLIN R Flexpen (Insulin Regular, Human) 100 Unit/Ml (3 Ml) Insuln.pen 15 Unit SQ AC Levemir Flextouch (Insulin Detemir) 100 Unit/Ml (3 Ml) Insuln.pen 40 Unit SQ BID Lisinopril 5 Mg Tablet 2.5 Mg PO DAILY Metoprolol Succinate 25 Mg Tab.er.24h 12.5 Mg PO DAILY Nitroglycerin 0.4 Mg Tab.subl 0.4 Mg SL UD PRN Fenofibrate (Fenofibrate,Micronized) 134 Mg Capsule 134 Mg PO HS Clopidogrel (Clopidogrel Bisulfate) 75 Mg Tablet 75 Mg PO DAILY Atorvastatin Calcium 80 Mg Tablet 80 Mg PO HS Aspirin 81 Mg Tab.chew 81 Mg PO DAILY Reported Tylenol Extra Strength (Acetaminophen) 500 Mg Tablet 1,000 Mg PO Q8H PRN Victoza 3-Charles (Liraglutide) 0.6 Mg/0.1 Ml (18 Mg/3 Ml) Pen.injctr 1.2 Mg SQ DAILY Bupropion Xl (Bupropion HCl) 300 Mg Tab.er.24h 300 Mg PO DAILY Venlafaxine HCl ER (Venlafaxine HCl) 75 Mg Cap.er.24h 225 Mg PO DAILY TAKES 3 (75NG) CAPS Metformin HCl ER (Metformin HCl) 500 Mg Tab.er.24h 1,000 Mg PO BID TAKES 2 (500MG) TABS Glipizide 10 Mg Tablet 10 Mg PO BID Multivitamins (Multivitamin) 1 Each Tablet 1 Each PO DAILY Instructions to patient/family Please see electronic discharge instructions given to patient. Clinical Quality Measures AMI/AHF: ASA po Prior to arrival: NEEL Lucero DO Nov 06, 2022 15:42
[2022-11-06] MEDS ORDERED: FENOFIBRATE 134 MG (LOFIBRA) CAPSULE PO SCH (21:00)
[2022-11-07] MEDS ORDERED: lisINopril 40 MG (PRINIVIL) TABLET PO SCH (09:00)
[2022-11-07] MEDS ORDERED: lisINopril 5 MG (PRINIVIL) TABLET PO SCH (09:00)
== END 2022-11-06 16:31 | disposition home or self-care (01) | DRG 247 ==
LOC: EDUNIT# 08:23 → ER 08:24 → CSD 11:07 → OBSVTOIN 11:27 → ICU 18:45
PROVIDERS: ADMIT Internal Medicine; ATTEND Internal Medicine
PROC: 4A023N7 Measurement of Cardiac Sampling and Pressure, Left Heart, Percutaneous Approach (ICD-10-PCS; principal; 2022-11-05)
PROC: 027034Z Dilation of Coronary Artery, One Artery with Drug-eluting Intraluminal Device, Percutaneous Approach (ICD-10-PCS; 2022-11-05)
PROC: 02703ZZ Dilation of Coronary Artery, One Artery, Percutaneous Approach (ICD-10-PCS; 2022-11-05)
PROC: B2111ZZ Fluoroscopy of Multiple Coronary Arteries using Low Osmolar Contrast (ICD-10-PCS; 2022-11-05)
DX: I21.4 Non-ST elevation (NSTEMI) myocardial infarction (principal); I25.110 Atherosclerotic heart disease of native coronary artery with unstable angina pectoris; E78.00 Pure hypercholesterolemia, unspecified; M19.90 Unspecified osteoarthritis, unspecified site; G89.29 Other chronic pain; M54.9 Dorsalgia, unspecified; F41.9 Anxiety disorder, unspecified; F32.A Depression, unspecified; Z79.82 Long term (current) use of aspirin; Z79.4 Long term (current) use of insulin; Z79.84 Long term (current) use of oral hypoglycemic drugs; Z79.899 Other long term (current) drug therapy; E11.22 Type 2 diabetes mellitus with diabetic chronic kidney disease; N18.9 Chronic kidney disease, unspecified; N40.0 Benign prostatic hyperplasia without lower urinary tract symptoms; I12.9 Hypertensive chronic kidney disease with stage 1 through stage 4 chronic kidney disease, or unspecified chronic kidney disease; E11.21 Type 2 diabetes mellitus with diabetic nephropathy; E11.65 Type 2 diabetes mellitus with hyperglycemia; F17.210 Nicotine dependence, cigarettes, uncomplicated; E66.9 Obesity, unspecified; Z68.38 Body mass index [BMI] 38.0-38.9, adult
CPT/HCPCS: 36415; 71045; 80053; 80061; 81000; 82150; 82947; 83690; 83735; 83874; 84100; 84132; 84484; 85025; 85347; 85610; 85730; 86141; 87081; 93005; 93041; 93306; 93458; 94760

== ENCOUNTER 2022-11-09 23:15 | Inpatient (IN) | payer BC, OTHER ==
[~2022-11-09] VITALS: Ht 183 cm; Wt 130.0 kg
[~2022-11-09 23:15] MED LIST changes: +ACET-2267 PO; +AMOX875T2 PO; +ATOR80TA76 PO; +BUPR300T98 PO; +CLOP75TA28 PO; +FENO134C21 PO; +GLIP10TA13 PO; +IBUP-2473 PO; +INSU100I29 SQ; +INSU100I51 SQ; +LIRA0.6P3 SQ; +LISI5TAB20 PO; +METF-865 PO; +NITR0.4T42 SL; +PEN-53 MC; +VENL75CA93 PO
[2022-11-09] MEDS ORDERED: ASPIRIN 81 MG CHEW (CHILDREN'S ASA) PO ONE (23:30)
[2022-11-09] MEDS ORDERED: NITROGLYCERIN 0.4 MG SL TABS BTL 25'S SL PRN (23:30)
[2022-11-09 23:42] LABS: BASOPHILS # (AUTO) 0.1 10^3/uL (0.0-0.1); BASOPHILS % (AUTO) 1 % (0-10); EOSINOPHILS # (AUTO) 0.2 10^3/uL (0.0-0.3); EOSINOPHILS % (AUTO) 2 % (0-10); HEMATOCRIT 46 % (40-54); HEMOGLOBIN 15.3 g/dL (13.3-17.7); LYMPHOCYTES # (AUTO) 2.5 10^3/uL (1.0-4.0); LYMPHOCYTES % (AUTO) 23 % (12-44); MEAN CORPUSCULAR HEMOGLOBIN 29 pg (25-34); MEAN CORPUSCULAR HGB CONC 34 g/dL (32-36); MEAN CORPUSCULAR VOLUME 87 fL (80-99); MEAN PLATELET VOLUME 10.1 fL (9.0-12.2); MONOCYTES # (AUTO) 0.9 10^3/uL (0.0-1.0); MONOCYTES % (AUTO) 8 % (0-12); NEUTROPHILS # (AUTO) 7.1 10^3/uL (1.8-7.8); NEUTROPHILS % (AUTO) 66 % (42-75); PLATELET COUNT 348 10^3/uL (130-400); WHITE BLOOD COUNT 10.7 10^3/uL (4.3-11.0)
[2022-11-09 23:54] LABS: ALBUMIN 4.1 GM/DL (3.2-4.5)
[2022-11-09 23:55] LABS: POTASSIUM 4.2 MMOL/L (3.6-5.0)
[2022-11-09 23:56] LABS: CALCIUM 9.6 MG/DL (8.5-10.1)
[2022-11-09 23:57] LABS: PROTHROMBIN TIME PATIENT 13.2 SEC (12.2-14.7); TOTAL PROTEIN 7.5 GM/DL (6.4-8.2)
[2022-11-09 23:59] LABS: BILIRUBIN,TOTAL 0.4 MG/DL (0.1-1.0)
[2022-11-10] LABS: CREATININE SERUM 1.13 MG/DL (0.60-1.30)
[2022-11-10 00:03] LABS: MAGNESIUM 1.9 MG/DL (1.6-2.4)
[2022-11-10] MEDS ORDERED: morphine INJ 10 MG/ML 1ML (SYR OR VIAL) IVP STA ×2 (00:05→03:10)
[2022-11-10] MEDS ORDERED: NS IV 500 ML 500 ML IV ONE (00:15)
[2022-11-10 01:06] LABS: BILIRUBIN,URINE NEGATIVE (NEGATIVE); CLARITY,URINE CLEAR; COLOR,URINE YELLOW; GLUCOSE, URINE (UA) NEGATIVE (NEGATIVE); KETONES,URINE NEGATIVE (NEGATIVE); LEUKOCYTE ESTERASE ,URINE NEGATIVE (NEGATIVE); NITRITE,URINE NEGATIVE (NEGATIVE); PROTEIN,URINE NEGATIVE (NEGATIVE)
[2022-11-10] MEDS ORDERED: HEParin 1000 UNIT/ML (10ML VIAL) FOR BOLUS IV ONE (01:15)
[2022-11-10] MEDS ORDERED: HEParin DRIP 25000 UNIT/500ML 500 ML IV ONE (01:15)
[2022-11-10] MEDS ORDERED: NITRO DRIP 25000 MCG/D5W 250 ML IV SCH ×2 (01:15→17:00)
[2022-11-10 01:22] LABS: BACTERIA,URINE NEGATIVE /HPF
[2022-11-10] MEDS ORDERED: DEXTROSE 10% IV SOLUTION 250 ML IV SCH (01:45)
--- NOTE | 2022-11-10 02:30 | ED Chest Pain ---
General Chief Complaint: Chest Pain Stated Complaint: CP,LEFT ARM PAIN Nursing Triage Note: PT AMB TO RM 3 W C/O CONSTANT CP THAT RADIATES TO LEFT SHOULDER SX 1800 TODAY. 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 A&OX4. Source: patient, old records History of Present Illness Date Seen by Provider: Nov 09, 2022 Time Seen by Provider: 23:25 Initial Comments PT ARRIVES VIA POV FROM HOME WITH C/O CHEST PAIN SINCE 1800 TONIGHT--BEGAN WHILE SITTING DOWN PAIN IS IN CENTER OF CHEST AND RADIATES TO LEFT ARM AND INTO JAW--LEFT > RIGHT JAW RATES PAIN 3-12/07, STATES IT IS A CONSTANT DULL ACHE NOTHING WORSENS OR IMPROVES PAIN--STATES HE WALKED ALOT TODAY AND DID NOT HAVE PAIN WHEN HE WALKED. NO SWEATS NO SHORTNESS OF BREATH NO DIZZINESS OR SYNCOPE NO PALPITATIONS NO NAUSEA/VOMITING NO SWELLING IN LEGS/FEET OR PAIN IN CALVES TOOK NTG X 1--10-15 MINUTES PRIOR TO ARRIVAL --NO IMPROVEMENT PT WAS SEEN HERE AND ADMITTED 11/05/22 FOR SAME PAIN--WAS MUCH WORSE AT THAT TIME, AND HAD MORE SYMPTOMS THEN. HE WAS DX WITH NSTEMI AND HAD STENT PLACED BY DR. CROWLEY ( BALLOON AND STENT TO LEFT CIRCUMFLEX, BALLOON TO LAD) PT STATES THAT HE NEEDS MORE STENTS PUT IN, AND IS TO HAVE THAT DONE IN A WEEK OR TWO WHEN DR. CROWLEY GETS BACK FROM VACATION. HE HAD NOT HAD ANY CARDIAC PROBLEMS PRIOR TO THEN. HE HAS NEVER TAKEN HOME NTG PRIOR TO TONIGHT. ADDITIONALLY, PT IS INSULIN DEPENDENT DIABETIC, AND BLOOD SUGARS HAVE BEEN IN THE 90'S TODAY--WERE VERY HIGH LAST WEEK WHILE HE WAS IN THE HOSPITAL. PT CONTINUES TO SMOKE CIGARS, AND DRINKS BEER DAILY. PCP: [facility] [employer]: DR. CROWLEY Allergies and Home Medications Allergies Coded Allergies: No Known Drug Allergies (Unverified , 05/23/18) Patient Home Medication List Acetaminophen (Tylenol Extra Strength) 500 Mg Tablet, 1,000 MG PO Q8H PRN for PAIN-MILD (1-4), (Reported) Entered as Reported by: CAROL FITZGERALD on 11/05/22 1536 Aspirin (Aspirin) 81 Mg Tab.chew, 81 MG PO DAILY Prescribed by: NEEL GALINDO on 11/06/22 1541 Atorvastatin Calcium (Atorvastatin Calcium) 80 Mg Tablet, 80 MG PO HS Prescribed by: NEEL GALINDO on 11/06/221540 Bupropion HCl (Bupropion Xl) 300 Mg Tab.er.24h, 300 MG PO DAILY, (Reported) Entered as Reported by: CAROL FITZGERALD on 11/05/221535 Clopidogrel Bisulfate (Clopidogrel) 75 Mg Tablet, 75 MG PO DAILY Prescribed by: NEEL GALINDO on 11/06/221540 Fenofibrate,Micronized (Fenofibrate) 134 Mg Capsule, 134 MG PO HS Prescribed by: NEEL GALINDO on 11/06/221540 Glipizide (Glipizide) 10 Mg Tablet, 10 MG PO BID, (Reported) Entered as Reported by: CAROL FITZGERALD on 11/05/221535 Insulin Detemir (Levemir Flextouch) 100 Unit/Ml (3 Ml) Insuln.pen, 40 UNIT SQ BID Prescribed by: NEEL GALINDO on 11/06/221540 Insulin Regular, Human (NovoLIN R Flexpen) 100 Unit/Ml (3 Ml) Insuln.pen, 15 UNIT SQ AC Prescribed by: NEEL GALINDO on 11/06/221540 Liraglutide (Victoza 3-Charles) 0.6 Mg/0.1 Ml (18 Mg/3 Ml) Pen.injctr, 1.2 MG SQ DAILY, (Reported) Entered as Reported by: CAROL FITZGERALD on 11/05/221535 Lisinopril (Lisinopril) 5 Mg Tablet, 2.5 MG PO DAILY Prescribed by: NEEL GALINDO on 11/06/221540 Metformin HCl (Metformin HCl ER) 500 Mg Tab.er.24h, 1,000 MG PO BID, (Reported) Entered as Reported by: CAROL FITZGERALD on 11/05/221535 Metoprolol Succinate (Metoprolol Succinate) 25 Mg Tab.er.24h, 12.5 MG PO DAILY Prescribed by: NEEL GALINDO on 11/06/221540 Multivitamin (Multivitamins) 1 Each Tablet, 1 EACH PO DAILY, (Reported) Entered as Reported by: COLT MONREAL on 05/23/18 1316 Nitroglycerin (Nitroglycerin) 0.4 Mg Tab.subl, 0.4 MG SL UD PRN for CHEST PAIN (ANGINA) Prescribed by: NEEL GALINDO on 11/06/22 154 Pen Needle, Diabetic (Advocate Pen Needle) 33 Gauge X 5/32" Dis.needle, EACH [facility], (DME) Prescribed by: NEEL GALINDO on 11/06/22 154 Venlafaxine HCl (Venlafaxine HCl ER) 75 Mg Cap.er.24h, 225 MG PO DAILY, (Reported) Entered as Reported by: CAROL FITZGERALD on 11/05/22 1536 Discontinued Medications Amoxicillin (Amoxicillin) 875 Mg Tablet, 875 MG PO BID, (Reported) Entered as Reported by: CAROL FITZGERALD on 11/05/22 153 Glipizide (Glipizide) 5 Mg Tablet, 5 MG PO BID, (Reported) Discontinued Reason: Duplicate Order Entered as Reported by: COLT MONREAL on 05/23/18 131 Ibuprofen (Ibuprofen) 200 Mg Tablet, 800 MG PO Q8H PRN for PAIN-MILD (1-4), (Reported) Entered as Reported by: CAROL FITZGERALD on 11/05/22 153 Insulin Degludec (Tresiba Flextouch U-100) 100 Unit/1 Ml Insuln.pen, 14 UNIT SQ DAILY, (Reported) Discontinued Reason: No Longer Taking Entered as Reported by: JULIÁN PARK on 07/17/21 0923 Lisinopril (Lisinopril) 20 Mg Tablet, 20 MG PO DAILY, (Reported) Entered as Reported by: COLT MONREAL on 05/23/18 131 Metformin HCl (Metformin HCl) 500 Mg Tablet, 1,000 PO BID, (Reported) Discontinued Reason: Duplicate Order Entered as Reported by: COLT MONREAL on 05/23/18 131 Metoprolol Succinate (Metoprolol Succinate) 25 Mg Tab.er.24h, 25 MG PO DAILY, (Reported) Entered as Reported by: COLT MONREAL on 05/23/18 131 Simvastatin (Simvastatin) 40 Mg Tablet, 40 MG PO HS, (Reported) Entered as Reported by: COLT MONREAL on 05/23/18 131 Venlafaxine HCl (Effexor Xr) 150 Mg Cap.er.24h, 150 MG PO DAILY, (Reported) Discontinued Reason: No Longer Taking Entered as Reported by: COLT MONREAL on 05/23/18 1316 Review of Systems Review of Systems Constitutional: no symptoms reported EENTM: No Symptoms Reported Respiratory: No Symptoms Reported Cardiovascular: See HPI Gastrointestinal: No Symptoms Reported Genitourinary: No Symptoms Reported Musculoskeletal: no symptoms reported Skin: no symptoms reported Psychiatric/Neurological: No Symptoms Reported Endocrine: No Symptoms Reported Hematologic/Lymphatic: No Symptoms Reported Past Jkemome-Rjbouf-Rflzgo Hx Patient Social History Tobacco Use?: Yes Tobacco type used: Cigars Smoking Status: Current Someday Smoker Use of E-Cig and/or Vaping dev: No Substance use?: No Alcohol Use?: Yes Alcohol type: Beer Alcohol Frequency: Daily Immunizations Up To Date Influenza Vaccine Up-to-Date: No; Not Current First/Initial COVID19 Vaccinat: OCTOBER 2020 Second COVID19 Vaccination Yahir: NOVEMBER 2020 Third COVID19 Vaccination Date: NONE COVID19 Vaccine Puppy Sitter: Sepaton X2 Seasonal Allergies Seasonal Allergies: Yes Past Medical History Surgery/Hospitalization HX: CARDIAC STENT AND ANGIOPLASTY 11/05/22 Surgeries: Yes (UMB HERNIA, HEART CATH X2) Abdominal, Cardiac, Coronary Stent Respiratory: Yes Sleep Apnea Currently Using CPAP: Yes Cardiac: Yes Coronary Artery Disease, Heart Attack, High Cholesterol, Hypertension Neurological: No Reproductive Disorders: No Sexually Transmitted Disease: No HIV/AIDS: No Genitourinary: No Gastrointestinal: Yes Abdominal Hernia, Gastroesophageal Reflux, Diverticulosis, Hemorrhoids, Polyps Musculoskeletal: Yes Arthritis, Chronic Back Pain Endocrine: Yes (OBESITY) Diabetes, Insulin dep HEENT: No Loss of Vision: Bilateral Hearing Impairment: Denies Cancer: No Psychosocial: Yes Anxiety, Depression Integumentary: No Blood Disorders: No Adverse Reaction/Blood Tranf: No (N/A) Family Medical History Other Conditions/Hx 05/25/2018--RIGHT KNEE SCOPE BY DR. INFANTE COLONOSCOPY 07/21/[address] MATTHEWS: Pre-Operative Diagnosis screening colonoscopy Post-Operative Diagnosis Polyp Diverticula int hemorrhoids CARDIAC CATH 11/05/[address] CROWLEY: PERCUTANEOUS CORONARY INTERVENTION: 1. LCx (stenting): Pre- 95% with SUBHA 2; Post- 0% with SUBHA 3; Guide JL-4; Wire- Choice Floppy; Balloon 3.0 x 30; Stent- Skypoint 3.5 x 15 2. LAD D2 (balloon only): Pre- 99% with SUBHA 2; Post- <50% with SUBHA 3; Guide JL-4; Wire- Choice Floppy; Balloon 2.0 x 30 Physical Exam Vital Signs Vital Signs - First Documented 11/09/22 23:22 Temp 36.0 Pulse 80 Resp 20 B/P (MAP) 118/57 (77) Pulse Ox 97 O2 Delivery Room Air Capillary Refill : Less Than 3 Seconds Height, Weight, BMI Height: 6'1.00" Weight: 330lbs. 3.0oz. 149.484192vx; 37.00 BMI Method:Stated General Appearance: No Apparent Distress, WD/WN, Obese HEENT: PERRL/EOMI Neck: Full Range of Motion, Normal Inspection, Non Tender, Supple; No Carotid Bruit, No JVD Respiratory: Chest Non Tender, Normal Breath Sounds, No Accessory Muscle Use, No Respiratory Distress Cardiovascular: Regular Rate, Rhythm, No Edema, No JVD, No Murmur, Normal Peripheral Pulses Gastrointestinal: Non Tender, Soft Extremity: Normal Capillary Refill, Normal Inspection, Normal Range of Motion, Non Tender, No Calf Tenderness, No Pedal Edema Neurologic/Psychiatric: Alert, Oriented x3, No Motor/Sensory Deficits, Normal Mood/Affect, 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 Norm as Tested Skin: Normal Color, Warm/Dry Progress/Results/Core Measures Results/Orders Lab Results Laboratory Tests Test 11/09/22 23:34 11/10/22 00:30 11/10/22 01:31 11/10/22 02:55 Range/Units White Blood Count 10.7 4.3-11.0 10^3/uL Red Blood Count 5.27 4.30-5.52 10^6/uL Hemoglobin 15.3 13.3-17.7 g/dL Hematocrit 46 40-54 % Mean Corpuscular Volume 87 80-99 fL Mean Corpuscular Hemoglobin 29 25-34 pg Mean Corpuscular Hemoglobin Concent 34 32-36 g/dL Red Cell Distribution Width 13.2 10.0-14.5 % Platelet Count 348 130-400 10^3/uL Mean Platelet Volume 10.1 9.0-12.2 fL Immature Granulocyte % (Auto) 1 % Neutrophils (%) (Auto) 66 42-75 % Lymphocytes (%) (Auto) 23 12-44 % Monocytes (%) (Auto) 8 0-12 % Eosinophils (%) (Auto) 2 0-10 % Basophils (%) (Auto) 1 0-10 % Neutrophils # (Auto) 7.1 1.8-7.8 10^3/uL Lymphocytes # (Auto) 2.5 1.0-4.0 10^3/uL Monocytes # (Auto) 0.9 0.0-1.0 10^3/uL Eosinophils # (Auto) 0.2 0.0-0.3 10^3/uL Basophils # (Auto) 0.1 0.0-0.1 10^3/uL Immature Granulocyte # (Auto) 0.1 0.0-0.1 10^3/uL Prothrombin Time 13.2 12.2-14.7 SEC INR Comment 1.0 0.8-1.4 Activated Partial Thromboplast Time 34 24-35 SEC D-Dimer 0.31 0.00-0.49 UG/ML Sodium Level 136 135-145 MMOL/L Potassium Level 4.2 3.6-5.0 MMOL/L Chloride Level 102 98-107 MMOL/L Carbon Dioxide Level 24 21-32 MMOL/L Anion Gap 10 5-14 MMOL/L Blood Urea Nitrogen 23 H 7-18 MG/DL Creatinine 1.13 0.60-1.30 MG/DL Estimat Glomerular Filtration Rate 75 BUN/Creatinine Ratio 20 Glucose Level 64 L 70-105 MG/DL Calcium Level 9.6 8.5-10.1 MG/DL Corrected Calcium 9.5 8.5-10.1 MG/DL Magnesium Level 1.9 1.6-2.4 MG/DL Total Bilirubin 0.4 0.1-1.0 MG/DL Aspartate Amino Transf (AST/SGOT) 28 5-34 U/L Alanine Aminotransferase (ALT/SGPT) 28 0-55 U/L Alkaline Phosphatase 86 40-136 U/L Total Creatine Kinase 73 30-200 U/L Creatine Kinase MB 1.0 <6.6 NG/ML Myoglobin 46.8 10.0-92.0 NG/ML Troponin I 0.077 H 0.065 H <0.028 NG/ML B-Type Natriuretic Peptide < 10.0 <100.0 PG/ML Total Protein 7.5 6.4-8.2 GM/DL Albumin 4.1 3.2-4.5 GM/DL Amylase Level 166 H 25-125 U/L Lipase 56 8-78 U/L Urine Color YELLOW Urine Clarity CLEAR Urine pH 6.0 5-9 Urine Specific [place] <=1.005 1.016-1.022 Urine Protein NEGATIVE NEGATIVE Urine Glucose (UA) NEGATIVE NEGATIVE Urine Ketones NEGATIVE NEGATIVE Urine Nitrite NEGATIVE NEGATIVE Urine Bilirubin NEGATIVE NEGATIVE Urine Urobilinogen 0.2 < = 1.0 MG/DL Urine Leukocyte Esterase NEGATIVE NEGATIVE Urine RBC (Auto) NEGATIVE NEGATIVE Urine RBC NONE /HPF Urine WBC NONE /HPF Urine Crystals NONE /LPF Urine Bacteria NEGATIVE /HPF Urine Casts NONE /LPF Urine Mucus NEGATIVE /LPF Urine Culture Indicated NO Glucometer 65 L 70-110 MG/DL My Orders Orders - JEFFREY ROLLINS DO Cbc With Automated Diff (11/09/22 23:) Magnesium (11/09/22 23:24) Chest 1 View, Ap/Pa Only (11/09/22:24) Ekg Tracing (11/09/22:24) Comprehensive Metabolic Panel (11/09/22 23:24) Myoglobin Serum (11/09/22 23:24) Protime With Inr (11/09/22:) Partial Thromboplastin Time (11/09/22:) O2 (11/09/22:) Monitor-Rhythm Ecg Trace Only (11/09/22 23:24) Ed Iv/Invasive Line Start (11/09/22 23:24) Creatine Kinase (11/09/22:24) Creatine Kinase Mb (11/09/22:24) Lipase (11/09/22 23:24) Amylase (11/09/22 23:24) Bnp Hughes (11/09/22 23:24) Fibrin Degradation Products (11/09/22:24) Troponin I Hughes (11/09/22:24) Nitroglycerin 0.4 Mg Btl 25's (Nitrostat (11/09/22 23:30) Aspirin Chewable Tablet (Baby Aspirin Ch (11/09/22 23:30) Ed Iv/Invasive Line Start (11/10/22 00:05) Ns Iv 500 Ml (Sodium Chloride 0.9%) (11/10/22 00:15) Morphine Injection (Morphine Injection (11/10/22 00:05) Ua Culture If Indicated (11/10/22 00:59) Heparin Drip 51526 Unit/500ml (Heparin (11/10/22 01:15) Heparin (Bolus Per Protocol) (Heparin (B (11/10/22 01:15) Nitro Drip 21096 Mcg/D5w (Nitroglycerin (11/10/22 01:15) Accucheck Stat ONCE (11/10/22 01:27) Dextrose 10% Iv Solution (D10w 250 Ml Iv (11/10/22 01:45) Troponin I Hughes (11/10/22 02:23) Morphine Injection (Morphine Injection (11/10/22 03:10) Ekg Tracing (11/10/22 05:49) Troponin I Hughes (11/10/22 05:49) Medications Given in ED Current Medications Medications Dose Ordered Sig/All Route Start Time Stop Time Status Last Admin Dose Admin Aspirin 324 mg ONCE ONCE PO 11/09/22 23:30 11/09/22 23:31 DC 11/09/22 23:37 324 MG Heparin Sodium (Porcine) HEPARIN FULL PROTOC... ONCE ONCE IV 11/10/22 01:15 11/10/22 01:16 DC 11/10/22 02:57 5,000 UNIT Heparin Sodium/ Dextrose 500 ml @ 0 mls/hr Q0M ONCE IV 11/10/22 01:15 11/10/22 01:16 DC 11/10/22 02:56 20 MLS/HR Nitroglycerin 0.4 mg UD PRN SL 11/09/22 23:30 11/09/22 23:37 0.4 MG Sodium Chloride 500 ml @ 0 mls/hr Q0M ONCE IV 11/10/22 00:15 11/10/22 00:16 DC 11/10/22 00:37 0 MLS/HR Vital Signs/I&O 11/09/22 11/10/22 23:22 02:59 Temp 36.0 Pulse 80 70 Resp 20 B/P (MAP) 118/57 (77) 110/64 Pulse Ox 97 O2 Delivery Room Air Blood Pressure Mean: 77 FSBG Bedside Testing Finger Stick Blood Glucose: 65 Blood Glucose Action Taken: notified physician Progress Progress Note : Progress Note CHEST PAIN PROTOCOL INITIATED GIVEN: -NTG SL X 2--NO RELIEF -MORPHINE --DECREASED PAIN--DOWN TO A 2 AND INTERMITTENT -NITROGLYCERINE DRIP--PAIN FREE -HEPARIN DRIP -ASPIRIN -D10 FOR BLOOD GLUCOSE IN 60'S -IV FLUIDS NO DETERIORATION IN PT'S CONDITION DURING ER STAY. REPEAT EKG IS UNCHANGED, AND TROPONIN LEVEL IS TRENDING DOWN. REVIEWED PRIOR RECORDS INCLUDING ER VISITS, ADMITS, H&P'S, TESTS/PROCEDURES AND DISCHARGE SUMMARIES. PT HELD IN ER, NO ICU BEDS WILL BE AVAILABLE UNTIL AFTER 0700 0600--CARE TURNED OVER TO DR. BANERJEE AT SHIFT CHANGE. PT IS PAIN FREE AND HAS NO COMPLAINTS. VITALS: BP 112/58, HR 64, O2 SAT 97% ON 2L/NC Initial ECG Impression Date: Nov 09, 2022 Initial ECG Impression Time: 23:31 Initial ECG Rate: 75 Initial ECG Rhythm: Normal Sinus Comment INTERPRETED BY ME EKG : EKG Time: 06:13 Rate: 62 Rhythm: Normal Sinus ECG Comparisson: Unchanged Comment INTERPRETED BY ME Diagnostic Imaging Comments CXR--NO ACUTE PROCESS, BORDERLINE CARDIOMEGALY--ESSENTIALLY UNCHANGED FROM PREVIOUS. PENDING RADIOLOGIST REVIEW Reviewed: Reviewed by Me Departure Communication (Admissions) 0005--SPOKE WITH DR. MAGANA, [employer] EXCELSIOR MACHINE FEEDER. HE ADVISES TO ADMIT PT AND START ON HEPARIN AND NITROGLYCERINE DRIP 0010--SPOKE WITH DR. BRADLEY, HOSPITALIST FOR [facility]. ACCEPTS PT FOR ADMIT. CURRENTLY NO ICU / STEP DOWN BEDS AVAILABLE, UNTIL AFTER 0700. WILL HOLD PT IN ER UNTIL BED IS AVAILABLE. Impression Primary Impression: Chest pain Additional Impressions: Unstable angina RECENT NSTEMI WITH STENTING IDDM (insulin dependent diabetes mellitus) HTN (hypertension) Disposition: ADMITTED INPATIENT Condition: Stable Admissions Decision to Admit Reason: Admit from ER (General) Decision to Admit/Date: Nov 10, 2022 Time/Decision to Admit Time: 00:10 Departure-Patient Inst. Referrals: [facility] (PCP) Primary Care Physician NATAN DEL REAL APRN (Family) Primary Care Physician JEFFREY ROLLINS DO Nov 10, 2022 02:30
--- NOTE | 2022-11-10 05:59 | Diagnostic Imaging Report ---
INDICATION: Chest pain. Portable chest 11:53 PM FINDINGS: Heart size and pulmonary vascularity are normal. Lungs are clear. There are no effusions or pneumothoraces. IMPRESSION: Negative chest. Dictated by: Dictated on workstation # [id number]
[2022-11-10] MEDS ORDERED: HEParin (CATH LAB) 2,000 ML IV ONE (08:50)
[2022-11-10] MEDS ORDERED: LIDOCAINE 1% INJ 20 ML VIAL ONE (08:50)
[2022-11-10] MEDS ORDERED: NS IV 1000 ML 1,000 ML ONE (08:50)
[2022-11-10] MEDS ORDERED: fentaNYL INJ 100 MCG/2 ML AMP ONE (08:54)
[2022-11-10] MEDS ORDERED: MIDAZOLAM 5 MG/5 ML (VERSED) VIAL ONE (08:54)
[2022-11-10] MEDS ORDERED: HEParin 1000 UNIT/ML (10ML VIAL) FOR BOLUS ONE (08:54)
[2022-11-10] MEDS ORDERED: NITRO DRIP 25000 MCG/D5W 250 ML IV ONE (08:54)
[2022-11-10] MEDS ORDERED: VERAPAMIL 5 MG/2 ML (CALAN) VIAL IV ONE (08:54)
--- NOTE | 2022-11-10 09:34 | Consultation-Cardiology ---
HPI-Cardiology Cardiology Consultation: Date of Consultation 11/10/22 Time Seen by a Provider: 08:55 Date of Admission 11/09/22 Attending Physician [facility] Admitting Physician Admitting Physician: Patricia Conley MD Attending Physician: Patricia Conley MD Consulting Physician CANDI MAGANA MD HPI: Mr. Encinas is a 57-year-old gentleman with a history of hypertension diabetes and CAD status post recent PCI to the left circumflex with a 3.5 x 15 JOSSIE in up over to the diagonal who presents for evaluation of shoulder/jaw pain patient was recently admitted to this hospital and underwent PCI by Dr. Washington. He was found to have multivessel severe CAD. He underwent PCI to the left circumflex and a POBA to the diagonal. The plan was then to bring him back for PCI of the distal RCA. Patient went home and began again to develop similar pain to what he had experienced prior to coming in. He comments that he had left shoulder pain that radiated up into his left neck near his left ear. In the emergency room his troponins were found to be 0.07 which is downtrending from his most recent admission. EKG demonstrated normal sinus rhythm. Chest x-ray without any acute changes. He was then placed on a nitro drip and a heparin drip and sent to the floor for further evaluation. He denies any palpitations presyncope syncope no PND no orthopnea no nausea vomiting diarrhea constipation BPF-Mcwmjc-Nygocb Hx Patient Social History Smoking Status: Current Someday Smoker 2nd Hand Smoke Exposure: No Have you traveled recently?: No Alcohol Use?: Yes Tobacco type used: Cigars Past Medical History PMH As described under Assessment. Family Medical History Family Medical History: He reports he had a daughter with WPW and a pacemaker. He reporst a sister who has had a stroke. Allergies and Home Medications Allergies Coded Allergies: No Known Drug Allergies (Unverified , 05/23/18) Patient Home Medication List Home Medication List Reviewed: Yes Acetaminophen (Tylenol Extra Strength) 500 Mg Tablet, 1,000 MG PO Q8H PRN for PAIN-MILD (1-4), (Reported) Entered as Reported by: CAROL FITZGERALD on 11/05/22 1536 Aspirin (Aspirin) 81 Mg Tab.chew, 81 MG PO DAILY Prescribed by: NEEL GALINDO on 11/06/22 1541 Atorvastatin Calcium (Atorvastatin Calcium) 80 Mg Tablet, 80 MG PO HS Prescribed by: NEEL GALINDO on 11/06/221540 Bupropion HCl (Bupropion Xl) 300 Mg Tab.er.24h, 300 MG PO DAILY, (Reported) Entered as Reported by: CAROL FITZGERALD on 11/05/221535 Clopidogrel Bisulfate (Clopidogrel) 75 Mg Tablet, 75 MG PO DAILY Prescribed by: NEEL GALINDO on 11/06/221540 Fenofibrate,Micronized (Fenofibrate) 134 Mg Capsule, 134 MG PO HS Prescribed by: NEEL GALINDO on 11/06/221540 Glipizide (Glipizide) 10 Mg Tablet, 10 MG PO BID, (Reported) Entered as Reported by: CAROL FITZGERALD on 11/05/221535 Insulin Detemir (Levemir Flextouch) 100 Unit/Ml (3 Ml) Insuln.pen, 40 UNIT SQ BID Prescribed by: NEEL GALINDO on 11/06/221540 Insulin Regular, Human (NovoLIN R Flexpen) 100 Unit/Ml (3 Ml) Insuln.pen, 15 UNIT SQ AC Prescribed by: NEEL GALINDO on 11/06/221540 Liraglutide (Victoza 3-Charles) 0.6 Mg/0.1 Ml (18 Mg/3 Ml) Pen.injctr, 1.2 MG SQ DAILY, (Reported) Entered as Reported by: CAROL FITZGERALD on 11/05/22 153 Lisinopril (Lisinopril) 5 Mg Tablet, 2.5 MG PO DAILY Prescribed by: NEEL GALINDO on 11/06/221540 Metformin HCl (Metformin HCl ER) 500 Mg Tab.er.24h, 1,000 MG PO BID, (Reported) Entered as Reported by: CAROL FITZGERALD on 11/05/221535 Metoprolol Succinate (Metoprolol Succinate) 25 Mg Tab.er.24h, 12.5 MG PO DAILY Prescribed by: NEEL GALINDO on 11/06/221540 Multivitamin (Multivitamins) 1 Each Tablet, 1 EACH PO DAILY, (Reported) Entered as Reported by: COLT MONREAL on 05/23/18 1316 Nitroglycerin (Nitroglycerin) 0.4 Mg Tab.subl, 0.4 MG SL UD PRN for CHEST PAIN (ANGINA) Prescribed by: NEEL GALINDO on 11/06/22 1541 Pen Needle, Diabetic (Advocate Pen Needle) 33 Gauge X 5/32" Dis.needle, EACH [facility], (DME) Prescribed by: NEEL GALINDO on 11/06/22 154 Venlafaxine HCl (Venlafaxine HCl ER) 75 Mg Cap.er.24h, 225 MG PO DAILY, (Reported) Entered as Reported by: CAROL FITZGERALD on 11/05/22 1536 Discontinued Medications Amoxicillin (Amoxicillin) 875 Mg Tablet, 875 MG PO BID, (Reported) Entered as Reported by: CAROL FITZGERALD on 11/05/22 153 Glipizide (Glipizide) 5 Mg Tablet, 5 MG PO BID, (Reported) Discontinued Reason: Duplicate Order Entered as Reported by: COLT MONREAL on 05/23/18 131 Ibuprofen (Ibuprofen) 200 Mg Tablet, 800 MG PO Q8H PRN for PAIN-MILD (1-4), (Reported) Entered as Reported by: CAROL FITZGERALD on 11/05/22 153 Insulin Degludec (Tresiba Flextouch U-100) 100 Unit/1 Ml Insuln.pen, 14 UNIT SQ DAILY, (Reported) Discontinued Reason: No Longer Taking Entered as Reported by: JULIÁN PARK on 07/17/21 0923 Lisinopril (Lisinopril) 20 Mg Tablet, 20 MG PO DAILY, (Reported) Entered as Reported by: COLT MONREAL on 05/23/18 131 Metformin HCl (Metformin HCl) 500 Mg Tablet, 1,000 PO BID, (Reported) Discontinued Reason: Duplicate Order Entered as Reported by: COLT MONREAL on 05/23/18 131 Metoprolol Succinate (Metoprolol Succinate) 25 Mg Tab.er.24h, 25 MG PO DAILY, (Reported) Entered as Reported by: COLT MONREAL on 05/23/18 131 Simvastatin (Simvastatin) 40 Mg Tablet, 40 MG PO HS, (Reported) Entered as Reported by: CLOT MONREAL on 05/23/18 131 Venlafaxine HCl (Effexor Xr) 150 Mg Cap.er.24h, 150 MG PO DAILY, (Reported) Discontinued Reason: No Longer Taking Entered as Reported by: COLT MONREAL on 05/23/18 1316 Physical Exam-Cardiology Physical Exam Vital Signs/I&O 11/09/22 11/10/22 11/10/22 11/10/22 23:22 02:59 07:11 07:15 Temp 36.0 Pulse 80 70 54 62 Resp 20 20 B/P (MAP) 118/57 (77) 110/64 122/70 92/66 (75) Pulse Ox 97 95 O2 Delivery Room Air Nasal Cannula Nasal Cannula O2 Flow Rate 2.00 2.00 11/10/22 07:23 Pulse 68 Capillary Refill : Less Than 3 Seconds Other comments Gen: No acute distress;' A+O x 3, sitting comfortably in the bed Neck: soft supple, no cervical LAD Luns: CTA-bilaterally, no wheezing, rales or rhonchi CV: nl s1/s2, no m-g-r, RRR Abd: soft nt nd, no HSM, + BS Ext: wwp, no c-c-e; 2+ DP and femoral pulses skin: no lesions rashes or ecchymoses are noted. Data Review Labs Laboratory Tests 11/09/22 23:34: White Blood Count 10.7, Red Blood Count 5.27, Hemoglobin 15.3, Hematocrit 46, Mean Corpuscular Volume 87, Mean Corpuscular Hemoglobin 29, Mean Corpuscular H emoglobin Concent 34, Red Cell Distribution Width 13.2, Platelet Count 348, Mean Platelet Volume 10.1, Immature Granulocyte % (Auto) 1, Neutrophils (%) (Auto) 66, Lymphocytes (%) (Auto) 23, Monocytes (%) (Auto) 8, Eosinophils (%) (Auto) 2, Basophils (%) (Auto) 1, Neutrophils # (Auto) 7.1, Lymphocytes # (Auto) 2.5, Monocytes # (Auto) 0.9, Eosinophils # (Auto) 0.2, Basophils # (Auto) 0.1, Immature Granulocyte # (Auto) 0.1, Prothrombin Time 13.2, INR Comment 1.0, Activated Partial Thromboplast Time 34, D-Dimer 0.31, Sodium Level 136, Potassium Level 4.2, Chloride Level 102, Carbon Dioxide Level 24, Anion Gap 10, Blood Urea Nitrogen 23H, Creatinine 1.13, Estimat Glomerular Filtration Rate 75, BUN/Creatinine Ratio 20, Glucose Level 64L, Calcium Level 9.6, Corrected Calcium 9.5, Magnesium Level 1.9, Total Bilirubin 0.4, Aspartate Amino Transf (AST/SGOT) 28, Alanine Aminotransferase (ALT/SGPT) 28, Alkaline Phosphatase 86, Total Creatine Kinase 73, Creatine Kinase MB 1.0, Myoglobin 46.8, Troponin I 0.077H, B-Type Natriuretic Peptide < 10.0, Total Protein 7.5, Albumin 4.1, Amylase Level 166H, Lipase 56 11/10/22 00:30: Urine Color YELLOW, Urine Clarity CLEAR, Urine pH 6.0, Urine Specific [place] <=1.005, Urine Protein NEGATIVE, Urine Glucose (UA) NEGATIVE, Urine Ketones NEGATIVE, Urine Nitrite NEGATIVE, Urine Bilirubin NEGATIVE, Urine Urobilinogen 0.2, Urine Leukocyte Esterase NEGATIVE, Urine RBC (Auto) NEGATIVE, Urine RBC NONE, Urine WBC NONE, Urine Crystals NONE, Urine Bacteria NEGATIVE, Urine Casts NONE, Urine Mucus NEGATIVE, Urine Culture Indicated NO 11/10/22 01:31: Glucometer 65L 11/10/22 02:55: Troponin I 0.065H 11/10/22 06:09: Troponin I 0.070H 11/10/22 06:54: Glucometer 108 11/10/22 08:50: Activated Partial Thromboplast Time 51H ECG Impression ECG Initial ECG Rhythm: Normal Sinus A/P-Cardiology Assessment/Admission Diagnosis Unstable angina Diabetes Hypertension CAD status post recent NSTEMI with PCI to the left circumflex and POBA to the diagonal Discussion and Recomendations Mr. Encinas is a 57-year-old gentleman with a history of hypertension diabetes and CAD status post recent PCI to the left circumflex with a 3.5 x 15 JOSSIE in up over to the diagonal who presents for evaluation of shoulder/jaw pain patient was recently admitted to this hospital and underwent PCI by Dr. Washington. Presentation consistent with unstable angina. First issue is unstable angina: Continue heparin drip and nitro drip for now. We will plan to bring him down to the [facility] for a relook to ensure stents are patent in addition we may consider IFR of the LAD to ensure that this is not multivessel severe CAD requiring surgical intervention. If the LAD is negative we would then move forward with PCI to the distal RCA into the PDA with subsequent ballooning through the stent cells into the PL territory. -Postprocedure we will reinitiate his cardiotonic regimen to include aspirin Plavix beta-cristhian statin and THUAN inhibitor. Hypertension: Blood pressures are 110s to 120s we will continue current regimen. Diabetes: Plan per hospitalist. Clinical Quality Measures AMI/AHF: ASA po Prior to arrival: Yes CANDI MAGANA MD Nov 10, 2022 09:34
--- NOTE | 2022-11-10 10:44 | Cardiac Procedure Note-CS/ASA ---
Pre-Procedure Note Pre-Op Procedure Note Date of Available H&P: Nov 10, 2022 Date H&P Reviewed: Nov 10, 2022 Time H&P Reviewed: 09:45 History & Physical: H&P Reviewed, Patient Examed, No changes noted Changes from last HP no changes from HnP Pre-Operative Diagnosis: screening colonoscopy Conscious Sedation Pre-Proced ASA Score 4 For ASA 3 and 4: Consider anesthesia and medical clearance. Also, for patients with a history of failed moderate sedation consider anesthesia. Airway Lungs Heart ASA score ASA 1: a normal healthy patient ASA 2: a patient with a mild systemic disease (mid diabetes, controlled hypertension, obesity ASA 3: a patient with a severe systemic disease that limits activity (angina, COPD, prior Myocardial infarction) ASA 4: a patient with an incapacitating disease that is a constant threat to life (CHF, renal failure) ASA 5: a moribund patient not expected to survive 24 hrs. (ruptured aneurysm) ASA 6: a declared brain- patient whose organs are being harvested. For emergent operations, add the letter E after the classification Mallampati Classification Grade 2 Sedation Plan Analgesia (Local anesthesia and conscious sedation), Discussed options with patient/fam, Discussed risks with patient/fam The patient is an appropriate candidate to undergo the planned procedure, sedation, and anesthesia. The patient immediately re-assessed prior to indication. CANDI MAGANA MD Nov 10, 2022 10:44 am
[2022-11-10] MEDS: NS IV 1000 ML 1,000 ML IV SCH ×2 (10:45→17:37)
[2022-11-10] MEDS ORDERED: PATIENT MAY USE OWN MEDS, ALL PO SCH (10:45)
[2022-11-10] MEDS ORDERED: CATHETER FLUSH 10 ML SYR IVP PRN (11:00)
--- NOTE | 2022-11-10 11:09 | Cardiac Cath Report ---
CARDIAC CATHETERIZATION DATE OF PROCEDURE: November 10, 2022 INDICATION: Unstable angina. HISTORY: 57-year-old male with history of CAD status post recent PCI to the left circumflex and possibly to the diagonal, hypertension hyperlipidemia, diabetes who presents for evaluation of recurrent left-sided arm discomfort radiating into the left neck. Patient was recently admitted for NSTEMI with similar symptoms and underwent PCI as noted above. Now he presents with similar symptoms. Troponin stable at 0.07 which is likely downtrending from his initial NSTEMI. Given his persistent symptoms, unstable angina is our greatest concern we will move forward with cardiac catheterization. PROCEDURES PERFORMED: 1. Right radial artery 2. Selective coronary angiography 3. IFR of the left anterior descending artery PROCEDURE DESCRIPTION: After informed consent and in the fasting state, the patient was prepped and draped in a sterile fashion. The patient was sedated with fentanyl and Versed. Lidocaine was administered. Access was obtained using a Doochoo 6 [place] slender radial kit. The left heart catheterization was pe rformed through the radial artery utilizing a 6 [place] system by percutaneous approach. JL 3.5 and JR4 catheters were used to interrogate the left and right coronary arteries respectively. . All catheters were exchanged over a guidewire. All hardware was removed and a radial band was placed over the right radial wrist. Hemostasis was achieved. No ecchymoses or hematoma was noted RESULTS: HEMODYNAMICS: Opening pressures of 79/50 7/67 with a heart rate of 61. CORONARY ANGIOGRAPHY: The left main is short bifurcates into the LAD and left circumflex territories. The left main is free of disease. The left circumflex has a patent stent in the mid section. Left Circumflex gives rise to 2 OM vessels. OM1 is moderate size vessel with minimal luminal irregularities. OM 2 is a moderate to large size vessel with minimal luminal irregularities. The LAD is a long vessel of moderate to large caliber. The LAD reaches the apex. There is slow flow noted in the LAD distribution. There is a tubular 60% lesion noted in the mid LAD, just distal to the D2 vessel takeoff. Mild diffuse disease is noted throughout the LAD course. D1 is a moderate size vessel with mild diffuse disease in the distal portion of the vessel. D2 is a moderate size vessel with a 60 to 70% lesion in the proximal portion. The RCA is a large size caliber vessel with 40 to 50% disease in the midsegment. The RCA gives rise to PDA and 3 RPL vessels there is a 60-70% lesion in the ostium of the RPDA. There is a 70-80% lesion in the RCA continuation branch giving rise to the RPL vessels. RPL1, RPL 2 and RPL3 are small caliber vessels with minimal luminal irregularities. PERCUTANEOUS CORONARY INTERVENTION:After diagnostic images, a 6 [place] EBU guide catheter was used to engage the left coronary os. An IFR wire was introduced into the distal LAD. iFR returned at 0.81 and 0.82 on two separate readings. Post iFR images were obtained to ensure no damage to the blood vessel IMPRESSION: 1. Severe multivessel CAD, including lesions in the LAD, diagonal 1, RPDA and RCA continuation branch. 2. Recent JOSSIE to the left circumflex on 11-05-22. Recommendations: 1. CT surgical evaluation. Last plavix on 11-09-22. 2. Medication optimization with metoprolol, Imdur BId, aspirin, statin and lisinopril. Discontinue Plavix at this time. Continue heparin drip. CANDI MAGANA MD Nov 10, 2022 11:09 am
[2022-11-10] MEDS ORDERED: FENO145T26 PO (12:53)
[2022-11-10] MEDS ORDERED: ASPI-999 PO (12:53)
[2022-11-10] MEDS ORDERED: ATOR80TA76 PO (12:53)
[2022-11-10] MEDS ORDERED: CLOP75TA28 PO (12:53)
[2022-11-10] MEDS ORDERED: LISI5TAB20 PO (12:53)
[2022-11-10] MEDS ORDERED: NITR0.4T39 SL (12:53)
[2022-11-10] MEDS ORDERED: ISOSORBIDE MONONITRATE 30 MG (IMDUR) TAB PO NR (14:00)
[2022-11-10] MEDS ORDERED: HEParin DRIP 25000 UNIT/500ML 500 ML IV SCH (17:00)
[2022-11-10] MEDS ORDERED: HEParin 1000 UNIT/ML (10ML VIAL) FOR BOLUS IV SCH ×2 (17:00→17:30)
[2022-11-10] MEDS: inSUlin ASPART (NovoLOG) 1 UNIT/0.01 ML (CHARGE PER UNIT) SC SCH ×2 (17:37→20:39)
[2022-11-10 19:25] VITALS: BP 98/60
--- NOTE | 2022-11-10 19:40 | History & Physical ---
HPI History of Present Illness: 57 yo M that presented to ER with worsening left shoulder and arm pain. He was just seen last week and had acute NV and had several stents placed and was told he had multi vessel disease and needed to be evaluated for CABG. States that he feels better this afternoon. He had repeat cath this morning. Discussed patient' s control with his DM and he said that his last A1c was 13. Source: patient, family, spouse Exam Limitations: no limitations Date seen by provider: Nov 10, 2022 Time Seen by Provider: 16:30 Attending Physician [facility] PCP Admitting Physician: Patricia Bradley MD Attending Physician: Patricia Bradley MD Consult Date of Admission Nov 10, 2022 at 07:11 Home Medications Home Medications Reviewed patient Home Medication Reconciliation performed by pharmacy medication reconciliations pool technician and/or nursing. Patients Allergies have been reviewed. Allergies Coded Allergies: No Known Drug Allergies (Unverified , 05/23/18) EYH-Zjaoew-Zvugtf Hx Patient Social History Living Status: Lives at home with spouse, independent with all ADLs Smoking Status: Current Someday Smoker 2nd Hand Smoke Exposure: No Recent Hopitalizations: No Alcohol Use?: Yes Tobacco type used: Cigarettes Have you traveled recently?: No Immunizations Up To Date Influenza Vaccine Up-to-Date: No; Not Current First/Initial COVID19 Vaccinat: OCTOBER 2020 Second COVID19 Vaccination Yahir: NOVEMBER 2020 Third COVID19 Vaccination Date: NONE COVID19 Vaccine Program Supervisor: MODERNA X2 Family Medical History Significant Family History: Heart Disease, Cancer (sister), CVA (sister), Diabetes, Other Conditions/Hx Other Significan Family Hx: 05/25/2018--RIGHT KNEE SCOPE BY DR. INFANTE COLONOSCOPY 07/21/[address] MATTHEWS: Pre-Operative Diagnosis screening colonoscopy Post-Operative Diagnosis Polyp Diverticula int hemorrhoids CARDIAC CATH 11/05/[address] CROWLEY: PERCUTANEOUS CORONARY INTERVENTION: 1. LCx (stenting): Pre- 95% with SUBHA 2; Post- 0% with SUBHA 3; Guide JL-4; Wire- Choice Floppy; Balloon 3.0 x 30; Stent- [place]oint 3.5 x 15 2. LAD D2 (balloon only): Pre- 99% with SUBHA 2; Post- <50% with SUBHA 3; Guide JL-4; Wire- Choice Floppy; Balloon 2.0 x 30 Review of Systems (CHC) Constitutional: No chills, No dizziness; malaise, weakness EENTM: no symptoms reported Respiratory: no symptoms reported; No cough, No dyspnea on exertion, No short of breath Cardiovascular: chest pain (improved); No palpitations Gastrointestinal: no symptoms reported; No abdominal pain, No constipation, No diarrhea, No nausea, No vomiting Genitourinary: no symptoms reported; No dysuria, No frequency, No hematuria Musculoskeletal: joint pain, muscle pain Psychiatric/Neurological: Headache Reviewed Test Results Reviewed Test Results Lab Laboratory Tests Test 11/09/22 23:34 11/10/22 00:30 11/10/22 01:31 11/10/22 02:55 Range/Units White Blood Count 10.7 4.3-11.0 10^3/uL Red Blood Count 5.27 4.30-5.52 10^6/uL Hemoglobin 15.3 13.3-17.7 g/dL Hematocrit 46 40-54 % Mean Corpuscular Volume 87 80-99 fL Mean Corpuscular Hemoglobin 29 25-34 pg Mean Corpuscular Hemoglobin Concent 34 32-36 g/dL Red Cell Distribution Width 13.2 10.0-14.5 % Platelet Count 348 130-400 10^3/uL Mean Platelet Volume 10.1 9.0-12.2 fL Immature Granulocyte % (Auto) 1 % Neutrophils (%) (Auto) 66 42-75 % Lymphocytes (%) (Auto) 23 12-44 % Monocytes (%) (Auto) 8 0-12 % Eosinophils (%) (Auto) 2 0-10 % Basophils (%) (Auto) 1 0-10 % Neutrophils # (Auto) 7.1 1.8-7.8 10^3/uL Lymphocytes # (Auto) 2.5 1.0-4.0 10^3/uL Monocytes # (Auto) 0.9 0.0-1.0 10^3/uL Eosinophils # (Auto) 0.2 0.0-0.3 10^3/uL Basophils # (Auto) 0.1 0.0-0.1 10^3/uL Immature Granulocyte # (Auto) 0.1 0.0-0.1 10^3/uL Prothrombin Time 13.2 12.2-14.7 SEC INR Comment 1.0 0.8-1.4 Activated Partial Thromboplast Time 34 24-35 SEC D-Dimer 0.31 0.00-0.49 UG/ML Sodium Level 136 135-145 MMOL/L Potassium Level 4.2 3.6-5.0 MMOL/L Chloride Level 102 98-107 MMOL/L Carbon Dioxide Level 24 21-32 MMOL/L Anion Gap 10 5-14 MMOL/L Blood Urea Nitrogen 23 H 7-18 MG/DL Creatinine 1.13 0.60-1.30 MG/DL Estimat Glomerular Filtration Rate 75 BUN/Creatinine Ratio 20 Glucose Level 64 L 70-105 MG/DL Calcium Level 9.6 8.5-10.1 MG/DL Corrected Calcium 9.5 8.5-10.1 MG/DL Magnesium Level 1.9 1.6-2.4 MG/DL Total Bilirubin 0.4 0.1-1.0 MG/DL Aspartate Amino Transf (AST/SGOT) 28 5-34 U/L Alanine Aminotransferase (ALT/SGPT) 28 0-55 U/L Alkaline Phosphatase 86 40-136 U/L Total Creatine Kinase 73 30-200 U/L Creatine Kinase MB 1.0 <6.6 NG/ML Myoglobin 46.8 10.0-92.0 NG/ML Troponin I 0.077 H 0.065 H <0.028 NG/ML B-Type Natriuretic Peptide < 10.0 <100.0 PG/ML Total Protein 7.5 6.4-8.2 GM/DL Albumin 4.1 3.2-4.5 GM/DL Amylase Level 166 H 25-125 U/L Lipase 56 8-78 U/L Urine Color YELLOW Urine Clarity CLEAR Urine pH 6.0 5-9 Urine Specific [place] <=1.005 1.016-1.022 Urine Protein NEGATIVE NEGATIVE Urine Glucose (UA) NEGATIVE NEGATIVE Urine Ketones NEGATIVE NEGATIVE Urine Nitrite NEGATIVE NEGATIVE Urine Bilirubin NEGATIVE NEGATIVE Urine Urobilinogen 0.2 < = 1.0 MG/DL Urine Leukocyte Esterase NEGATIVE NEGATIVE Urine RBC (Auto) NEGATIVE NEGATIVE Urine RBC NONE /HPF Urine WBC NONE /HPF Urine Crystals NONE /LPF Urine Bacteria NEGATIVE /HPF Urine Casts NONE /LPF Urine Mucus NEGATIVE /LPF Urine Culture Indicated NO Glucometer 65 L 70-110 MG/DL Test 11/10/22 06:09 11/10/22 06:54 11/10/22 08:50 11/10/22 12:24 Range/Units Troponin I 0.070 H <0.028 NG/ML Glucometer 108 59 *L 70-110 MG/DL Activated Partial Thromboplast Time 51 H 24-35 SEC Test 11/10/22 12:27 11/10/22 13:36 11/10/22 15:35 Range/Units Glucometer 64 L 161 H 204 H 70-110 MG/DL Physical Exam-(CHC) Physical Exam Vital Signs VS - Last 72 Hours, by Label 11/09/22 11/10/22 11/10/22 11/10/22 23:22 02:59 07:11 07:15 Temp 36.0 Pulse 80 70 54 62 Resp 20 20 B/P (MAP) 118/57 (77) 110/64 122/70 92/66 (75) Pulse Ox 97 95 O2 Delivery Room Air Nasal Cannula Nasal Cannula O2 Flow Rate 2.00 2.00 11/10/22 11/10/22 11/10/22 11/10/22 07:23 08:00 10:30 11:00 Pulse 68 63 57 Resp 14 B/P (MAP) 114/72 (86) 113/71 (85) Pulse Ox 96 O2 Delivery Nasal Cannula Nasal Cannula Nasal Cannula O2 Flow Rate 2.00 2.00 2.00 11/10/22 11/10/22 11/10/22 11/10/22 11:15 11:30 11:45 12:00 Pulse 63 61 68 64 Resp 18 19 34 37 B/P (MAP) 109/67 (81) 108/60 (76) 110/63 (79) 120/73 (89) Pulse Ox 92 91 90 93 O2 Delivery Nasal Cannula Nasal Cannula Nasal Cannula Nasal Cannula O2 Flow Rate 2.00 2.00 2.00 2.00 11/10/22 11/10/22 11/10/22 11/10/22 12:00 12:00 12:15 12:30 Temp 35.8 Pulse 65 66 Resp 8 27 B/P (MAP) 112/77 (89) 131/86 (101) Pulse Ox 94 93 O2 Delivery Nasal Cannula Nasal Cannula Nasal Cannula O2 Flow Rate 2.00 2.00 2.00 11/10/22 11/10/22 11/10/22 11/10/22 12:43 12:45 13:00 14:00 Pulse 68 65 67 67 Resp 18 28 14 B/P (MAP) 132/92 (105) 106/68 (81) 107/70 (82) Pulse Ox 97 97 94 O2 Delivery Nasal Cannula Nasal Cannula Nasal Cannula O2 Flow Rate 2.00 2.00 2.00 11/10/22 11/10/22 11/10/22 11/10/22 15:00 15:32 16:00 16:00 Temp 36.0 Pulse 68 70 Resp 20 33 B/P (MAP) 129/75 (93) 130/82 (98) Pulse Ox 92 95 93 O2 Delivery Nasal Cannula Nasal Cannula Room Air O2 Flow Rate 2.00 2.00 11/10/22 11/10/22 11/10/22 17:00 17:39 18:00 Pulse 71 71 75 Resp 29 22 B/P (MAP) 121/80 (94) 122/78 114/77 (89) Pulse Ox 97 95 O2 Delivery Nasal Cannula Nasal Cannula O2 Flow Rate 2.00 2.00 Capillary Refill : Less Than 3 Seconds General Appearance: WD/WN, no apparent distress HEENT: PERRL/EOMI Neck: non-tender, full range of motion Respiratory: chest non-tender, lungs clear, normal breath sounds, no respiratory distress, no accessory muscle use Cardiovascular: normal peripheral pulses, regular rate, rhythm, no murmur Gastrointestinal: normal bowel sounds, non tender, soft Back: no CVA tenderness, no vertebral tenderness Extremities: normal range of motion, no pedal edema, no calf tenderness, normal capillary refill Neurologic/Psychiatric: hospitality 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 II-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 nml as tested, no motor/sensory deficits, alert, normal mood/affect, oriented x 3 Skin: normal color, warm/dry Lymphatic: no adenopathy Assessment/Plan Assessment/Plan Admission Status: Inpatient Order (span 2 midnights) Reason for Inpatient Admission: High risk for decompensation and requiring ICU care and monitoring (1) Unstable angina Status: Acute Assessment & Plan: - Cardiology consulted, appreciate recommendations, multivessel dz, recommendation for CABG, Has spoken to [facility] and waiting for bed to open up (2) IDDM (insulin dependent diabetes mellitus) Status: Acute Assessment & Plan: - A1c pending, continue SSI, patient has had some low blood sugars since admission (3) Uncontrolled diabetes mellitus with hyperglycemia Status: Chronic Qualifiers: Qualified Codes: E11.65 - Type 2 diabetes mellitus with hyperglycemia (4) HTN (hypertension) Status: Chronic Assessment & Plan: - Normotensive, will continue to monitor Clinical Quality Measures AMI/AHF: ASA po Prior to arrival: Yes PATRICIA BRADLEY MD Nov 10, 2022 19:40
[2022-11-10] MEDS: meTOprolol TARTRATE 25 MG (LOPRESSOR) TABLET PO SCH (20:10)
[2022-11-10] MEDS: ISOSORBIDE MONONITRATE 30 MG (IMDUR) TAB PO SCH (20:10)
[2022-11-10] MEDS: ACETAMINOPHEN 500 MG TAB (TYLENOL) PO PRN (21:17)
[2022-11-11] MEDS: NS IV 1000 ML 1,000 ML IV SCH (03:23)
[2022-11-11] MEDS: ACETAMINOPHEN 500 MG TAB (TYLENOL) PO PRN (05:49)
[2022-11-11 05:51] LABS: BASOPHILS % (AUTO) 0 % (0-10); EOSINOPHILS # (AUTO) 0.3 10^3/uL (0.0-0.3); EOSINOPHILS % (AUTO) 3 % (0-10); HEMATOCRIT 41 % (40-54); HEMOGLOBIN 13.5 g/dL (13.3-17.7); LYMPHOCYTES # (AUTO) 2.2 10^3/uL (1.0-4.0); LYMPHOCYTES % (AUTO) 24 % (12-44); MEAN CORPUSCULAR HEMOGLOBIN 29 pg (25-34); MEAN CORPUSCULAR HGB CONC 33 g/dL (32-36); MEAN CORPUSCULAR VOLUME 89 fL (80-99); MEAN PLATELET VOLUME 10.7 fL (9.0-12.2); MONOCYTES # (AUTO) 1.1 10^3/uL (0.0-1.0); MONOCYTES % (AUTO) 11 % (0-12); NEUTROPHILS # (AUTO) 5.6 10^3/uL (1.8-7.8); NEUTROPHILS % (AUTO) 61 % (42-75); PLATELET COUNT 293 10^3/uL (130-400); WHITE BLOOD COUNT 9.2 10^3/uL (4.3-11.0)
[2022-11-11 06:01] LABS: ALBUMIN 3.5 GM/DL (3.2-4.5); POTASSIUM 4.3 MMOL/L (3.6-5.0)
[2022-11-11 06:03] LABS: CALCIUM 8.7 MG/DL (8.5-10.1)
[2022-11-11 06:04] LABS: TOTAL PROTEIN 6.4 GM/DL (6.4-8.2)
[2022-11-11 06:06] LABS: BILIRUBIN,TOTAL 0.4 MG/DL (0.1-1.0)
[2022-11-11 06:07] LABS: PHOSPHORUS 3.3 MG/DL (2.3-4.7)
[2022-11-11 06:08] LABS: CREATININE SERUM 0.94 MG/DL (0.60-1.30)
[2022-11-11 06:10] LABS: MAGNESIUM 1.7 MG/DL (1.6-2.4)
[2022-11-11] MEDS: inSUlin ASPART (NovoLOG) 1 UNIT/0.01 ML (CHARGE PER UNIT) SC SCH (06:11)
[2022-11-11] MEDS: meTOprolol TARTRATE 25 MG (LOPRESSOR) TABLET PO SCH (08:48)
[2022-11-11] MEDS: ISOSORBIDE MONONITRATE 30 MG (IMDUR) TAB PO SCH (08:48)
[2022-11-11] MEDS ORDERED: ASPIRIN E.C. 81 MG (ECOTRIN) TAB PO SCH (09:00)
[2022-11-11] MEDS ORDERED: lisINopril 5 MG (PRINIVIL) TABLET PO SCH (09:00)
--- NOTE | 2022-11-11 09:02 | Cardiology Progress Note ---
Subjective Date Seen by Provider: Nov 11, 2022 Time Seen by Provider: 08:15 Subjective/Events-last exam No acute events overnight. no further chest pain. Awaiting tfr to [facility] Objective-Cardiology Exam Last Set of Vital Signs Vital Signs 11/10/22 11/11/22 19:42 08:00 Temp 36.0 Pulse 63 Resp 21 B/P (MAP) 115/70 (85) Pulse Ox 97 O2 Delivery Room Air O2 Flow Rate 2.00 I&O Intake and Output 11/11/22 00:00 Intake Total 3260 ml Output Total 2475 ml Balance 785 ml Intake Oral 1410 ml IV Total 1850 ml Output Urine Total 2475 ml Daily Weight Change No Other physical findings Gen: No acute distress;' A+O x 3, sitting comfortably in the bed Neck: soft supple, no cervical LAD Luns: CTA-bilaterally, no wheezing, rales or rhonchi CV: nl s1/s2, no m-g-r, RRR Abd: soft nt nd, no HSM, + BS Ext: wwp, no c-c-e; 2+ DP and femoral pulses skin: no lesions rashes or ecchymoses are noted. Results Lab Laboratory Tests 11/11/22 05:42 A/P-Cardiology Assessment/Plan Unstable angina Diabetes Hypertension CAD status post recent NSTEMI with PCI to the left circumflex and POBA to the diagonal Mr. Encinas is a 57-year-old gentleman with a history of hypertension diabetes and CAD status post recent PCI to the left circumflex with a 3.5 x 15 JOSSIE in up over to the diagonal who presents for evaluation of shoulder/jaw pain patient was recently admitted to this hospital and underwent PCI by Dr. Washington. Presentation consistent with unstable angina. ## Unstable angina: Pt with no further chest pain overnight. Reports Headache. - cont with IMdur 30mg po BID - wean nitro gtt to ff - cont ASA/atovastatin/metop/lisinopril ## Severe multivessel CAD: 1. Severe multivessel CAD, including lesions in the LAD, diagonal 1, RPDA and RCA continuation branch. iFR of LAD was 0.81. - TTE on 11-06-22 demonstratred low normal LV function with EF 50-55%, mild RV enlargement with normal RV function, no significant valvular lesions. - referred to Dr. Rowell of CTS at [facility] [place] - d/c plavix; last plavix on 11-09-22 - cont heparin gtt - low threshold to consider cangrelor ## Hypertension: Blood pressures are 100-130s; - cont regimen as outlined above. ## Diabetes: Plan per hospitalist. ## Dispo: - awaiting transfer this AM to [facility] Fontenot MD Nov 11, 2022 09:02
--- NOTE | 2022-11-11 18:00 | Discharge Summary ---
Diagnosis/Chief Complaint Date of Admission Nov 10, 2022 at 07:11 Date of Discharge Nov 11, 2022 at 09:06 Admission Diagnosis Admission Diagnosis See problem list Discharge Diagnosis See below Problems/Diagnosis: (1) Unstable angina Assessment & Plan: - Cardiology consulted, appreciate recommendations, multivessel dz, recommendation for CABG, Has spoken to [facility] and waiting for bed to open up Status: Acute (2) IDDM (insulin dependent diabetes mellitus) Assessment & Plan: - A1c pending, continue SSI, patient has had some low blood sugars since admission Status: Acute (3) Uncontrolled diabetes mellitus with hyperglycemia Qualifiers: Qualified Codes: E11.65 - Type 2 diabetes mellitus with hyperglycemia Status: Chronic (4) HTN (hypertension) Assessment & Plan: - Normotensive, will continue to monitor Status: Chronic Chief Complaint/HPI Chief Complaint/HPI 57 yo M that presented to ER with worsening left shoulder and arm pain. He was just seen last week and had acute MO and had several stents placed and was told he had multi vessel disease and needed to be evaluated for CABG. States that he feels better this afternoon. He had repeat cath this morning. Discussed patient's control with his DM and he said that his last A1c was 13. Discharge Summary-Simple/Stand Consultations Discharge Physical Examination Allergies: Coded Allergies: No Known Drug Allergies (Unverified , 05/23/18) Vitals & I&Os Vital Sign - Last 12Hours Date Time Temp Pulse Resp B/P (MAP) Pulse Ox O2 Delivery O2 Flow Rate FiO2 11/11/22 08:00 63 21 115/70 (85) 97 Room Air 11/11/22 08:00 36.0 11/10/22 19:42 2.00 Intake and Output 11/11/22 00:00 Intake Total 2510 ml Output Total 2475 ml Balance 35 ml Hospital Course See final discharge diagnosis. Discharge Instructions to patient/family Please see electronic discharge instructions given to patient. Discharge Medications Reviewed and agree with Discharge Medication list on patient's Discharge Instruction sheet Clinical Quality Measures AMI/AHF: ASA po Prior to arrival: Yes MECHELLE BRADLEY MD Nov 11, 2022 18:00
== END 2022-11-11 09:06 | disposition short-term general hospital (02) | DRG 282 ==
LOC: EDUNIT# 23:15 → ER 23:18 → ICU 11-10 07:11
PROVIDERS: ADMIT Family Medicine; ATTEND Family Medicine
PROC: 4A023N7 Measurement of Cardiac Sampling and Pressure, Left Heart, Percutaneous Approach (ICD-10-PCS; principal; 2022-11-10)
PROC: B2111ZZ Fluoroscopy of Multiple Coronary Arteries using Low Osmolar Contrast (ICD-10-PCS; 2022-11-10)
PROC: 4A033BC Measurement of Arterial Pressure, Coronary, Percutaneous Approach (ICD-10-PCS; 2022-11-10)
DX: I25.110 Atherosclerotic heart disease of native coronary artery with unstable angina pectoris (principal); I21.4 Non-ST elevation (NSTEMI) myocardial infarction; E11.65 Type 2 diabetes mellitus with hyperglycemia; I10 Essential (primary) hypertension; G47.30 Sleep apnea, unspecified; E78.00 Pure hypercholesterolemia, unspecified; K21.9 Gastro-esophageal reflux disease without esophagitis; M19.91 Primary osteoarthritis, unspecified site; E66.9 Obesity, unspecified; F41.9 Anxiety disorder, unspecified; F32.A Depression, unspecified; H54.3 Unqualified visual loss, both eyes; F17.290 Nicotine dependence, other tobacco product, uncomplicated; Z68.38 Body mass index [BMI] 38.0-38.9, adult; Z79.4 Long term (current) use of insulin; Z79.84 Long term (current) use of oral hypoglycemic drugs; Z95.5 Presence of coronary angioplasty implant and graft; Z79.82 Long term (current) use of aspirin; Z79.899 Other long term (current) drug therapy
CPT/HCPCS: 36415; 71045; 80053; 81000; 82150; 82550; 82553; 82947; 83036; 83690; 83735; 83874; 83880; 84100; 84484; 85025; 85027; 85347; 85379; 85610; 85730; 87081; 93005; 93041; 93454

== ENCOUNTER 2022-12-16 05:38 | Emergency (ER) | payer BC, OTHER ==
[~2022-12-16] VITALS: Ht 183 cm; Wt 130.1 kg
[~2022-12-16 05:38] MED LIST changes: +FENO145T26 PO; -INSU100I29 SQ; +INSU100I30 SQ; +NITR0.4T39 SL
--- NOTE | 2022-12-16 06:09 | ED Cardiac General ---
History of Present Illness General Chief Complaint: Cardiac/General Problems Stated Complaint: IRR HEART RATE Nursing Triage Note: PT AMB TO RM 5 W C/O "HEART SKIPPING A BEAT" INTERMITTENTLY SX APPROX [phone]. PT REPORTS HE WOKE UP AROUND THAT TIME W SYMPTOMS AND FELL BACK ASLEEP, WOKE UP AGAIN AT 0430 W SAME SYMPTOMS. PT DENIES EXPERIENCING FEELING AT THIS TIME, DENIES PAIN, A&OX4. History of Present Illness Date Seen by Provider: Dec 16, 2022 Time Seen by Provider: 06:04 Initial Comments 57-year-old male presents with what he feels like palpitations "his heart skipping a beat" reports he has had feeling twice this morning around 2-3am and again around 430. He does not have any symptoms at this time. Patient had a stent placed recently and is scheduled for bypass and was just concerned so wanted to be evaluated. Allergies and Home Medications Allergies Coded Allergies: No Known Drug Allergies (Unverified , 05/23/18) Patient Home Medication List Home Medication List Reviewed: Yes Acetaminophen (Tylenol Extra Strength) 500 Mg Tablet, 1,000 MG PO Q8H PRN for PAIN-MILD (1-4), (Reported) Entered as Reported by: CAROL FITZGERALD on 11/05/22 153 Aspirin (Aspirin) 81 Mg Tab.chew, 81 MG PO DAILY, (Reported) Entered as Reported by: CAROL FITZGERALD on 11/10/22 1253 Atorvastatin Calcium (Atorvastatin Calcium) 80 Mg Tablet, 80 MG PO HS, (Reported) Entered as Reported by: CAROL FITZGERALD on 11/10/22 1253 Bupropion HCl (Bupropion Xl) 300 Mg Tab.er.24h, 300 MG PO DAILY, (Reported) Entered as Reported by: CAROL FITZGERALD on 11/05/22 1536 Clopidogrel Bisulfate (Clopidogrel) 75 Mg Tablet, 75 MG PO DAILY, (Reported) Entered as Reported by: CAROL FITZGERALD on 11/10/22 1253 Fenofibrate Nanocrystallized (Fenofibrate) 145 Mg Tablet, 145 MG PO DAILY, (Reported) Entered as Reported by: CAROL FITZGERALD on 11/10/22 1253 Glipizide (Glipizide) 10 Mg Tablet, 10 MG PO BID, (Reported) Entered as Reported by: CAROL FITZGERALD on 11/05/22 1536 Insulin Detemir (Levemir Flextouch) 100 Unit/Ml (3 Ml) Insuln.pen, 40 UNIT SQ BID Prescribed by: NEEL GALINDO on 11/06/22 154 Insulin Regular, Human (NovoLIN R Flexpen) 100 Unit/Ml (3 Ml) Insuln.pen, 15 UNI T SQ AC Prescribed by: NEEL GALINDO on 11/06/22 154 Liraglutide (Victoza 3-Charles) 0.6 Mg/0.1 Ml (18 Mg/3 Ml) Pen.injctr, 1.2 MG SQ DAILY, (Reported) Entered as Reported by: CAROL FITZGERALD on 11/05/22 153 Lisinopril (Lisinopril) 5 Mg Tablet, 2.5 MG PO DAILY, (Reported) Entered as Reported by: CAROL FITZGERALD on 11/10/22 1253 Metformin HCl (Metformin HCl ER) 500 Mg Tab.er.24h, 1,000 MG PO BID, (Reported) Entered as Reported by: CAROL FITZGERALD on 11/05/22 153 Metoprolol Succinate (Metoprolol Succinate) 25 Mg Tab.er.24h, 12.5 MG PO DAILY Prescribed by: NEEL GALINDO on 11/06/22 154 Multivitamin (Multivitamins) 1 Each Tablet, 1 EACH PO DAILY, (Reported) Entered as Reported by: COLT MONREAL on 05/23/18 1316 Nitroglycerin (Nitroglycerin) 0.4 Mg Tab.subl, 0.4 MG SL UD PRN for CHEST PAIN, (Reported) Entered as Reported by: CAROL FITZGERALD on 11/10/22 1253 Venlafaxine HCl (Venlafaxine HCl ER) 75 Mg Cap.er.24h, 225 MG PO DAILY, (Reported) Entered as Reported by: CAROL FITZGERALD on 11/05/22 153 Review of Systems Review of Systems Constitutional: No chills, No fever Respiratory: No Symptoms Reported Cardiovascular: See HPI, Palpitations Gastrointestinal: No Symptoms Reported Genitourinary: No Symptoms Reported Musculoskeletal: no symptoms reported Psychiatric/Neurological: No Symptoms Reported Past Jqkqtgk-Gmokow-Qqdiwi Hx Patient Social History Tobacco Use?: Yes Tobacco type used: Cigars Smoking Status: Current Someday Smoker Use of E-Cig and/or Vaping dev: No Substance use?: No Alcohol Use?: Yes Alcohol Frequency: Rarely Immunizations Up To Date Influenza Vaccine Up-to-Date: No; Not Current First/Initial COVID19 Vaccinat: OCTOBER 2020 Second COVID19 Vaccination Yahir: NOVEMBER 2020 Third COVID19 Vaccination Date: NONE 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: 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 X2 Seasonal Allergies Seasonal Allergies: Yes Past Medical History Surgery/Hospitalization HX: CARDIAC STENT AND ANGIOPLASTY 11/05/22, BYPASS SCHEDULED 01/2023 Surgeries: Yes (UMB HERNIA, HEART CATH X2) Abdominal, Cardiac, Coronary Stent Respiratory: Yes Sleep Apnea Currently Using CPAP: Yes Cardiac: Yes Coronary Artery Disease, Heart Attack, High Cholesterol, Hypertension Neurological: No Reproductive Disorders: No Sexually Transmitted Disease: No HIV/AIDS: No Genitourinary: No Gastrointestinal: Yes Abdominal Hernia, Gastroesophageal Reflux, Diverticulosis, Hemorrhoids, Polyps Musculoskeletal: Yes Arthritis, Chronic Back Pain Endocrine: Yes (OBESITY) Diabetes, Insulin dep HEENT: No Loss of Vision: Bilateral Hearing Impairment: Denies Cancer: No Psychosocial: Yes Anxiety, Depression Integumentary: No Blood Disorders: No Adverse Reaction/Blood Tranf: No (N/A) Family Medical History Heart Disease, Cancer, CVA, Diabetes, Other Conditions/Hx 05/25/2018--RIGHT KNEE SCOPE BY DR. INFANTE COLONOSCOPY 07/21/[address] MATTHEWS: Pre-Operative Diagnosis screening colonoscopy Post-Operative Diagnosis Polyp Diverticula int hemorrhoids CARDIAC CATH 11/05/[address] CROWLEY: PERCUTANEOUS CORONARY INTERVENTION: 1. LCx (stenting): Pre- 95% with SUBHA 2; Post- 0% with SUBHA 3; Guide JL-4; Wire- Choice Floppy; Balloon 3.0 x 30; Stent- Skypoint 3.5 x 15 2. LAD D2 (balloon only): Pre- 99% with SUBHA 2; Post- <50% with SUBHA 3; Guide JL-4; Wire- Choice Floppy; Balloon 2.0 x 30 Physical Exam Vital Signs Vital Signs - First Documented 12/16/22 12/16/22 05:46 06:42 Temp 36.0 Pulse 67 Resp 18 B/P (MAP) 119/84 (96) Pulse Ox 96 O2 Delivery Room Air O2 Flow Rate 2.00 Capillary Refill : Less Than 3 Seconds Height, Weight, BMI Height: 6'1.00" Weight: 330lbs. 3.0oz. 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 Norm as Tested Skin: Normal Color, Warm/Dry Progress/Results/Core Measures Results/Orders Lab Results Laboratory Tests Test 12/16/22 06:02 Range/Units White Blood Count 6.7 4.3-11.0 10^3/uL Red Blood Count 4.98 4.30-5.52 10^6/uL Hemoglobin 14.6 13.3-17.7 g/dL Hematocrit 44 40-54 % Mean Corpuscular Volume 88 80-99 fL Mean Corpuscular Hemoglobin 29 25-34 pg Mean Corpuscular Hemoglobin Concent 33 32-36 g/dL Red Cell Distribution Width 13.6 10.0-14.5 % Platelet Count 339 130-400 10^3/uL Mean Platelet Volume 9.5 9.0-12.2 fL Immature Granulocyte % (Auto) 0 % Neutrophils (%) (Auto) 54 42-75 % Lymphocytes (%) (Auto) 31 12-44 % Monocytes (%) (Auto) 11 0-12 % Eosinophils (%) (Auto) 3 0-10 % Basophils (%) (Auto) 0 0-10 % Neutrophils # (Auto) 3.6 1.8-7.8 10^3/uL Lymphocytes # (Auto) 2.1 1.0-4.0 10^3/uL Monocytes # (Auto) 0.8 0.0-1.0 10^3/uL Eosinophils # (Auto) 0.2 0.0-0.3 10^3/uL Basophils # (Auto) 0.0 0.0-0.1 10^3/uL Immature Granulocyte # (Auto) 0.0 0.0-0.1 10^3/uL Prothrombin Time 13.8 12.2-14.7 SEC INR Comment 1.0 0.8-1.4 Activated Partial Thromboplast Time 39 H 24-35 SEC Sodium Level 140 135-145 MMOL/L Potassium Level 3.9 3.6-5.0 MMOL/L Chloride Level 107 98-107 MMOL/L Carbon Dioxide Level 20 L 21-32 MMOL/L Anion Gap 13 5-14 MMOL/L Blood Urea Nitrogen 21 H 7-18 MG/DL Creatinine 1.20 0.60-1.30 MG/DL Estimat Glomerular Filtration Rate 70 BUN/Creatinine Ratio 18 Glucose Level 103 70-105 MG/DL Calcium Level 9.6 8.5-10.1 MG/DL Corrected Calcium 9.5 8.5-10.1 MG/DL Magnesium Level 1.8 1.6-2.4 MG/DL Total Bilirubin 0.5 0.1-1.0 MG/DL Aspartate Amino Transf (AST/SGOT) 21 5-34 U/L Alanine Aminotransferase (ALT/SGPT) 23 0-55 U/L Alkaline Phosphatase 66 40-136 U/L Total Creatine Kinase 73 30-200 U/L Creatine Kinase MB 1.3 <6.6 NG/ML Myoglobin 38.8 10.0-92.0 NG/ML Troponin I < 0.028 <0.028 NG/ML B-Type Natriuretic Peptide 11.2 <100.0 PG/ML Total Protein 6.9 6.4-8.2 GM/DL Albumin 4.1 3.2-4.5 GM/DL TSH [place] Testing 1.41 0.35-4.94 UIU/ML Vital Signs/I&O 12/16/22 12/16/22 12/16/22 05:46 06:42 07:28 Temp 36.0 Pulse 67 60 Resp 18 20 B/P (MAP) 119/84 (96) 144/84 Pulse Ox 96 94 95 O2 Delivery Room Air Room Air Room Air O2 Flow Rate 2.00 Blood Pressure Mean: 96 Progress Progress Note : Progress Note Patient's diagnostic studies were reviewed and interpreted by me. There is no significant acute findings on his CBC CMP with negative troponin negative BNP and no concerns on electrolytes. Patient with normal EKG it was reviewed that showed normal sinus rhythm, heart rate 68, NC 200 QTc [address] changes or elevation. Patient's chest x-ray was ordered with initial interpretation negative by me. Radiology report was concerned about atelectasis versus bibasilar infection. With patient not having fevers cough or other symptoms with with suspect is more likely atelectasis than early infection. Patient remained asymptomatic throughout his stay. patient stable and dis charged home Initial ECG Impression Date: Dec 16, 2022 Initial ECG Impression Time: 05:53 Initial ECG Rate: 68 Initial ECG Rhythm: Normal Sinus Initial ECG Intervals: Normal Initial ECG Impression: Normal Comment No acute changes or ST elevation Departure Impression Primary Impression: Palpitations Disposition: 01 HOME, SELF-CARE Condition: Stable Departure-Patient Inst. Referrals: [facility]/ (PCP) Primary Care Physician NATAN DEL REAL APRN (Family) Primary Care Physician Patient Instructions: Palpitations Add. Discharge Instructions: Please follow-up with your primary care provider and poly packer and heat sealer for further evaluation if symptoms become more recurrent. All discharge instructions reviewed with patient and/or family. Voiced understanding. KUN CASE DO Dec 16, 2022 06:09
[2022-12-16 06:11] LABS: BASOPHILS % (AUTO) 0 % (0-10); EOSINOPHILS # (AUTO) 0.2 10^3/uL (0.0-0.3); EOSINOPHILS % (AUTO) 3 % (0-10); HEMATOCRIT 44 % (40-54); HEMOGLOBIN 14.6 g/dL (13.3-17.7); LYMPHOCYTES # (AUTO) 2.1 10^3/uL (1.0-4.0); LYMPHOCYTES % (AUTO) 31 % (12-44); MEAN CORPUSCULAR HEMOGLOBIN 29 pg (25-34); MEAN CORPUSCULAR HGB CONC 33 g/dL (32-36); MEAN CORPUSCULAR VOLUME 88 fL (80-99); MEAN PLATELET VOLUME 9.5 fL (9.0-12.2); MONOCYTES # (AUTO) 0.8 10^3/uL (0.0-1.0); MONOCYTES % (AUTO) 11 % (0-12); NEUTROPHILS # (AUTO) 3.6 10^3/uL (1.8-7.8); NEUTROPHILS % (AUTO) 54 % (42-75); PLATELET COUNT 339 10^3/uL (130-400); WHITE BLOOD COUNT 6.7 10^3/uL (4.3-11.0)
[2022-12-16 06:24] LABS: ALBUMIN 4.1 GM/DL (3.2-4.5); CHLORIDE 107 MMOL/L (98-107); POTASSIUM 3.9 MMOL/L (3.6-5.0); SODIUM 140 MMOL/L (135-145)
[2022-12-16 06:25] LABS: CALCIUM 9.6 MG/DL (8.5-10.1); PROTHROMBIN TIME PATIENT 13.8 SEC (12.2-14.7)
[2022-12-16 06:26] LABS: GLUCOSE 103 MG/DL (70-105); TOTAL PROTEIN 6.9 GM/DL (6.4-8.2)
[2022-12-16 06:27] LABS: CARBON DIOXIDE 20 MMOL/L (21-32)
[2022-12-16 06:28] LABS: BILIRUBIN,TOTAL 0.5 MG/DL (0.1-1.0)
[2022-12-16 06:30] LABS: ALKALINE PHOSPHATASE 66 U/L (40-136); GFR ESTIMATED 70
[2022-12-16 06:31] LABS: BUN/CREATININE RATIO 18
[2022-12-16 06:33] LABS: ALANINE AMINOTRANSFERASE 23 U/L (0-55); CREATINE KINASE 73 U/L (30-200); MAGNESIUM 1.8 MG/DL (1.6-2.4)
[2022-12-16 06:44] LABS: CREATINE KINASE MB 1.3 NG/ML (<6.6)
--- NOTE | 2022-12-16 06:47 | Diagnostic Imaging Report ---
EXAMINATION: Chest 1 view HISTORY: Palpitations. COMPARISON: 11/09/2022. FINDINGS: The lung volumes are normal. Bibasilar opacities are present. No large pleural effusion or pneumothorax is seen. The cardiomediastinal silhouette is stable in size. No acute osseous abnormality is seen. IMPRESSION: 1. Bibasilar opacities which may represent atelectasis or infection. 2. Cardiomegaly. Dictated by: Dictated on workstation # [id number]
[2022-12-16 06:56] LABS: TSH (THYROID ANALYZER) 1.41 UIU/ML (0.35-4.94)
[2022-12-16 07:28] VITALS: BP 144/84
== END 2022-12-16 07:28 | disposition home or self-care (01) ==
LOC: EDUNIT# 05:38 → ER 05:40
DX: R00.2 Palpitations (principal); G47.30 Sleep apnea, unspecified; E66.9 Obesity, unspecified; F17.290 Nicotine dependence, other tobacco product, uncomplicated; Z99.89 Dependence on other enabling machines and devices; Z68.38 Body mass index [BMI] 38.0-38.9, adult; Z95.5 Presence of coronary angioplasty implant and graft
CPT/HCPCS: 36415; 71045; 80053; 82550; 82553; 83735; 83874; 83880; 84443; 84484; 85025; 85610; 85730; 93005; 93041

== ENCOUNTER 2023-01-01 09:04 | Emergency (ER) | payer BC, OTHER ==
[~2023-01-01] VITALS: Ht 182.9 cm; Wt 124.7 kg
[2023-01-01 09:30] LABS: BASOPHILS # (AUTO) 0.1 10^3/uL (0.0-0.1); BASOPHILS % (AUTO) 1 % (0-10); EOSINOPHILS % (AUTO) 14 % (0-10); HEMATOCRIT 43 % (40-54); HEMOGLOBIN 14.3 g/dL (13.3-17.7); LYMPHOCYTES # (AUTO) 2.2 10^3/uL (1.0-4.0); LYMPHOCYTES % (AUTO) 30 % (12-44); MEAN CORPUSCULAR HEMOGLOBIN 29 pg (25-34); MEAN CORPUSCULAR HGB CONC 33 g/dL (32-36); MEAN CORPUSCULAR VOLUME 86 fL (80-99); MEAN PLATELET VOLUME 9.8 fL (9.0-12.2); MONOCYTES # (AUTO) 0.8 10^3/uL (0.0-1.0); MONOCYTES % (AUTO) 11 % (0-12); NEUTROPHILS # (AUTO) 3.2 10^3/uL (1.8-7.8); NEUTROPHILS % (AUTO) 44 % (42-75); PLATELET COUNT 328 10^3/uL (130-400); WHITE BLOOD COUNT 7.3 10^3/uL (4.3-11.0)
[2023-01-01 09:36] LABS: ALBUMIN 4.1 GM/DL (3.2-4.5); POTASSIUM 4.5 MMOL/L (3.6-5.0)
[2023-01-01 09:37] LABS: CALCIUM 9.4 MG/DL (8.5-10.1)
[2023-01-01 09:39] LABS: TOTAL PROTEIN 7.3 GM/DL (6.4-8.2)
[2023-01-01 09:40] LABS: BILIRUBIN,TOTAL 0.4 MG/DL (0.1-1.0)
[2023-01-01 09:42] LABS: CREATININE SERUM 1.11 MG/DL (0.60-1.30)
[2023-01-01 09:45] LABS: MAGNESIUM 1.6 MG/DL (1.6-2.4)
[2023-01-01 09:49] LABS: BASOPHILS % (MANUAL) 1 %; EOSINOPHILS % (MANUAL) 11 %; LYMPHOCYTES % (MANUAL) 34 %; MONOCYTES % (MANUAL) 7 %; NEUTROPHILS % (MANUAL) 47 %; RBC MORPH NORMAL
--- NOTE | 2023-01-01 09:58 | Diagnostic Imaging Report ---
CLINICAL INDICATIONS: Patient with left shoulder pain which started this morning. Patient had headache and stents placed 5 weeks ago. EXAM: Portable chest x-ray upright view. COMPARISON: Chest x-ray dated 12/16/2022. Chest x-ray dated 04/24/2014. FINDINGS: Lungs/pleura: Stable nodular area involving the left upper lobe which is also seen on comparison chest x-ray dated 04/24/2014 and likely represents a benign process. There is minimal left basilar atelectasis. Lungs are otherwise clear. There is no pneumothorax. There is no pleural effusion. Mediastinum: Unremarkable. Pulmonary vasculature: Unremarkable. Heart: Cardiac silhouette is upper limits of normal for portable projection.. Bones/extrathoracic soft tissue: Unremarkable. IMPRESSION: 1: Stable chest x-ray exam with no interval radiographic evidence of acute cardiopulmonary process. 2: There is minimal left basilar atelectasis. Dictated by: Dictated on workstation # [id number]
--- NOTE | 2023-01-01 10:23 | ED Chest Pain ---
General Chief Complaint: Upper Extremity Stated Complaint: LT SHOULDER PAIN Nursing Triage Note: PT AMBULATE TO ROOM 05 WITHOUT DIFFICULTY WITH C/O LEFT SHOULDER PAIN STARTING THIS MORNING. PT REPORTS LEONARDO AND STENTS PLACED X5 WEEKS AGO. PT REPORTS TAKING X1 NITRO THAT RELEIVED THE PAIN. Source: patient Exam Limitations: no limitations History of Present Illness Date Seen by Provider: January 01, 2023 Time Seen by Provider: 09:09 Initial Comments He took Tylenol 30 min prior to arrival. Allergies and Home Medications Allergies Coded Allergies: No Known Drug Allergies (Unverified , 05/23/18) Patient Home Medication List Home Medication List Reviewed: Yes Acetaminophen (Tylenol Extra Strength) 500 Mg Tablet, 1,000 MG PO Q8H PRN for PAIN-MILD (1-4), (Reported) Entered as Reported by: CAROL FITZGERALD on 11/05/22 153 Aspirin (Aspirin) 81 Mg Tab.chew, 81 MG PO DAILY, (Reported) Entered as Reported by: CAROL FITZGERALD on 11/10/22 1253 Atorvastatin Calcium (Atorvastatin Calcium) 80 Mg Tablet, 80 MG PO HS, (Reported) Entered as Reported by: CAROL FITZGERALD on 11/10/22 1253 Bupropion HCl (Bupropion Xl) 300 Mg Tab.er.24h, 300 MG PO DAILY, (Reported) Entered as Reported by: CAROL FITZGERALD on 11/05/22 153 Clopidogrel Bisulfate (Clopidogrel) 75 Mg Tablet, 75 MG PO DAILY, (Reported) Entered as Reported by: CAROL FITZGERALD on 11/10/22 1253 Cyclobenzaprine HCl (Cyclobenzaprine HCl) 10 Mg Tablet, 10 MG PO Q8H PRN for SPASMS Prescribed by: JOSE J DUMONT on 01/01/23 1515 Fenofibrate Nanocrystallized (Fenofibrate) 145 Mg Tablet, 145 MG PO DAILY, (Reported) Entered as Reported by: CAROL FITZGERALD on 11/10/22 1253 Glipizide (Glipizide) 10 Mg Tablet, 10 MG PO BID, (Reported) Entered as Reported by: CAROL FITZGERALD on 11/05/22 1536 Insulin Detemir (Levemir Flextouch) 100 Unit/Ml (3 Ml) Insuln.pen, 40 UNIT SQ BID Prescribed by: NEEL GALINDO on 11/06/22 1541 Insulin Regular, Human (NovoLIN R Flexpen) 100 Unit/Ml (3 Ml) Insuln.pen, 15 UNIT SQ AC Prescribed by: NEEL GALINDO on 11/06/22 154 Liraglutide (Victoza 3-Charles) 0.6 Mg/0.1 Ml (18 Mg/3 Ml) Pen.injctr, 1.2 MG SQ DAILY, (Reported) Entered as Reported by: CAROL FITZGERALD on 11/05/22 153 Lisinopril (Lisinopril) 5 Mg Tablet, 2.5 MG PO DAILY, (Reported) Entered as Reported by: CAROL FITZGERALD on 11/10/22 1253 Metformin HCl (Metformin HCl ER) 500 Mg Tab.er.24h, 1,000 MG PO BID, (Reported) Entered as Reported by: CAROL FITZGERALD on 11/05/22 153 Metoprolol Succinate (Metoprolol Succinate) 25 Mg Tab.er.24h, 12.5 MG PO DAILY Prescribed by: NEEL GALINDO on 11/06/22 154 Multivitamin (Multivitamins) 1 Each Tablet, 1 EACH PO DAILY, (Reported) Entered as Reported by: COLT MONREAL on 05/23/18 1316 Nitroglycerin (Nitroglycerin) 0.4 Mg Tab.subl, 0.4 MG SL UD PRN for CHEST PAIN, (Reported) Entered as Reported by: CAROL FITZGERALD on 11/10/22 1253 Venlafaxine HCl (Venlafaxine HCl ER) 75 Mg Cap.er.24h, 225 MG PO DAILY, (Reported) Entered as Reported by: CAROL FITZGERALD on 11/05/22 153 Past Cmasoou-Fghhog-Wqjluo Hx Patient Social History Tobacco Use?: No Smoking Status: Never a Smoker Smokeless Tobacco Frequency: Never a User Use of E-Cig and/or Vaping dev: No Use of E-Cig and/or Vaping Bhanu: Never a User Substance use?: No Alcohol Use?: No Pt feels they are or have been: No Immunizations Up To Date First/Initial COVID19 Vaccinat: OCTOBER 2020 Second COVID19 Vaccination Yahir: NOVEMBER 2020 Third COVID19 Vaccination Date: NONE Seasonal Allergies Seasonal Allergies: Yes Past Medical History Surgery/Hospitalization HX: CARDIAC STENT AND ANGIOPLASTY 11/05/22, BYPASS SCHEDULED 01/2023 Surgeries: Yes (UMB HERNIA, HEART CATH X2) Abdominal, Cardiac, Coronary Stent Respiratory: Yes Sleep Apnea Currently Using CPAP: Yes Cardiac: Yes Coronary Artery Disease, Heart Attack, High Cholesterol, Hypertension Neurological: No Reproductive Disorders: No Sexually Transmitted Disease: No HIV/AIDS: No Genitourinary: No Gastrointestinal: Yes Abdominal Hernia, Gastroesophageal Reflux, Diverticulosis, Hemorrhoids, Polyps Musculoskeletal: Yes Arthritis, Chronic Back Pain Endocrine: Yes (OBESITY) Diabetes, Insulin dep HEENT: No Loss of Vision: Bilateral Hearing Impairment: Denies Cancer: No Psychosocial: Yes Anxiety, Depression Integumentary: No Blood Disorders: No Adverse Reaction/Blood Tranf: No (N/A) Family Medical History Heart Disease, Cancer, CVA, Diabetes, Other Conditions/Hx 05/25/2018--RIGHT KNEE SCOPE BY DR. INFANTE COLONOSCOPY 07/21/[address] MATTHEWS: Pre-Operative Diagnosis screening colonoscopy Post-Operative Diagnosis Polyp Diverticula int hemorrhoids CARDIAC CATH 11/05/[address] CHRISTIAN: PERCUTANEOUS CORONARY INTERVENTION: 1. LCx (stenting): Pre- 95% with SUBHA 2; Post- 0% with SUBHA 3; Guide JL-4; Wire- Choice Floppy; Balloon 3.0 x 30; Stent- [place] 3.5 x 15 2. LAD D2 (balloon only): Pre- 99% with SUBHA 2; Post- <50% with SUBHA 3; Guide JL-4; Wire- Choice Floppy; Balloon 2.0 x 30 Physical Exam Vital Signs Vital Signs - First Documented 01/01/23 01/01/23 09:09 09:10 Temp 35.7 Pulse 63 Resp 17 B/P (MAP) 121/77 (92) Pulse Ox 97 O2 Delivery Room Air Capillary Refill : Less Than 3 Seconds Height, Weight, BMI Height: 6'1.00" Weight: 330lbs. 3.0oz. 149.756175fx; 37.00 BMI Method:Stated Progress/Results/Core Measures Results/Orders Lab Results Laboratory Tests Test 01/01/23 09:12 01/01/23 12:06 01/01/23 14:05 Range/Units White Blood Count 7.3 4.3-11.0 10^3/uL Red Blood Count 4.98 4.30-5.52 10^6/uL Hemoglobin 14.3 13.3-17.7 g/dL Hematocrit 43 40-54 % Mean Corpuscular Volume 86 80-99 fL Mean Corpuscular Hemoglobin 29 25-34 pg Mean Corpuscular Hemoglobin Concent 33 32-36 g/dL Red Cell Distribution Width 13.7 10.0-14.5 % Platelet Count 328 130-400 10^3/uL Mean Platelet Volume 9.8 9.0-12.2 fL Immature Granulocyte % (Auto) 1 % Neutrophils (%) (Auto) 44 42-75 % Lymphocytes (%) (Auto) 30 12-44 % Monocytes (%) (Auto) 11 0-12 % Eosinophils (%) (Auto) 14 H 0-10 % Basophils (%) (Auto) 1 0-10 % Neutrophils # (Auto) 3.2 1.8-7.8 10^3/uL Lymphocytes # (Auto) 2.2 1.0-4.0 10^3/uL Monocytes # (Auto) 0.8 0.0-1.0 10^3/uL Eosinophils # (Auto) 1.0 H 0.0-0.3 10^3/uL Basophils # (Auto) 0.1 0.0-0.1 10^3/uL Immature Granulocyte # (Auto) 0.0 0.0-0.1 10^3/uL Neutrophils % (Manual) 47 % Lymphocytes % (Manual) 34 % Monocytes % (Manual) 7 % Eosinophils % (Manual) 11 % Basophils % (Manual) 1 % Blood Morphology Comment NORMAL Prothrombin Time 14.0 12.2-14.7 SEC INR Comment 1.0 0.8-1.4 Activated Partial Thromboplast Time 34 24-35 SEC Sodium Level 141 135-145 MMOL/L Potassium Level 4.5 3.6-5.0 MMOL/L Chloride Level 106 98-107 MMOL/L Carbon Dioxide Level 23 21-32 MMOL/L Anion Gap 12 5-14 MMOL/L Blood Urea Nitrogen 17 7-18 MG/DL Creatinine 1.11 0.60-1.30 MG/DL Estimat Glomerular Filtration Rate 77 BUN/Creatinine Ratio 15 Glucose Level 104 70-105 MG/DL Calcium Level 9.4 8.5-10.1 MG/DL Corrected Calcium 9.3 8.5-10.1 MG/DL Magnesium Level 1.6 1.6-2.4 MG/DL Total Bilirubin 0.4 0.1-1.0 MG/DL Aspartate Amino Transf (AST/SGOT) 27 5-34 U/L Alanine Aminotransferase (ALT/SGPT) 30 0-55 U/L Alkaline Phosphatase 80 40-136 U/L Myoglobin 54.2 10.0-92.0 NG/ML Troponin I < 0.028 < 0.028 < 0.028 <0.028 NG/ML Total Protein 7.3 6.4-8.2 GM/DL Albumin 4.1 3.2-4.5 GM/DL My Orders Orders - JOSE J LANGFORD MD Cbc With Automated Diff (01/01/23:) Magnesium (01/01/23) Chest 1 View, Ap/Pa Only (01/01/23) Ekg Tracing (01/01/23) Comprehensive Metabolic Panel (01/01/23) Myoglobin Serum (01/01/23) Protime With Inr (01/01/23:) Partial Thromboplastin Time (01/01/23:) O2 (01/01/23:) Monitor-Rhythm Ecg Trace Only (01/01/23) Ed Iv/Invasive Line Start (01/01/23:) Troponin I [place] (01/01/23:) Manual Differential (01/01/23 09:12) Troponin I [place] (01/01/23 12:00) Ekg Tracing (01/01/23 12:00) Acetaminophen Tablet (Tylenol Tablet) (01/01/23 10:30) Ekg Tracing (01/01/23 10:26) Troponin I [place] (01/01/23 14:00) Medications Given in ED Vital Signs/I&O 01/01/23 01/01/23 01/01/23 09:09 09:10 15:13 Temp 35.7 36.7 Pulse 63 73 Resp 17 17 B/P (MAP) 121/77 (92) 133/81 Pulse Ox 97 O2 Delivery Room Air Room Air Room Air Blood Pressure Mean: 92 Progress Progress Note : Time: 10:47 Progress Note Initial work-up was unremarkable including CBC, CMP, troponin, and magnesium. All labs were reviewed and interpreted by me in their entirety. EKG showed no ischemia. Patient got up to use the restroom around 1015. He had an increase in pain at that time. Repeat EKG showed no ischemia. Chest x-ray was unremarkable. Repeat troponin at noon is pending. We will reassess at that time and possibly consult cardiology. Initial ECG Impression Date: January 01, 2023 Initial ECG Impression Time: 09:15 Initial ECG Rate: 65 Initial ECG Rhythm: Normal Sinus Initial ECG Intervals: Normal Initial ECG Impression: Normal Comment Normal sinus rhythm with no ST elevation or depression. Low voltage EKG. No abnormal intervals or axis deviation. EKG #1: EKG Time: 10:29 Rate: 61 Rhythm: Normal Sinus Intervals: Normal Comment Normal sinus rhythm with no ST elevation or depression. No abnormal intervals or axis deviation. Voltage improved from prior EKG. EKG #2: EKG Time: 12:13 Rate: 60 Rhythm: Normal Sinus Intervals: Normal ECG Impression: Normal Comment Normal sinus rhythm with no ST elevation or depression. No significant abnormal intervals or axis deviation. No dynamic changes from prior. Diagnostic Imaging Diagonstic Imaging: Xray Plain Films/CT/US/NM/MRI: chest Comments NAME: BRENTON ALMAGUER [facility] REC#: [id number] PT STATUS: REG ER : 1965 PHYSICIAN: JOSE J LANGFORD MD ADMIT DATE: 01/01/23/ER Draft Date of Exam:01/01/23 CHEST 1 VIEW, AP/PA ONLY CLINICAL INDICATIONS: Patient with left shoulder pain which started this morning. Patient had headache and stents placed 5 weeks ago. EXAM: Portable chest x-ray upright view. COMPARISON: Chest x-ray dated 12/16/2022. Chest x-ray dated 04/24/2014. FINDINGS: Lungs/pleura: Stable nodular area involving the left upper lobe which is also seen on comparison chest x-ray dated 04/24/2014 and likely represents a benign process. There is minimal left basilar atelectasis. Lungs are otherwise clear. There is no pneumothorax. There is no pleural effusion. Mediastinum: Unremarkable. Pulmonary vasculature: Unremarkable. Heart: Cardiac silhouette is upper limits of normal for portable projection.. Bones/extrathoracic soft tissue: Unremarkable. IMPRESSION: 1: Stable chest x-ray exam with no interval radiographic evidence of acute cardiopulmonary process. 2: There is minimal left basilar atelectasis. Dictated on workstation # [id number] Dict: 01/01/23 0951 Trans: 01/01/23 0958 CVB [id number] Interpreted by: JB PARRA MD Departure Impression Primary Impression: Left shoulder pain Qualified Codes: M25.512 - Pain in left shoulder Additional Impression: Coronary artery disease Qualified Codes: I25.10 - Atherosclerotic heart disease of [place] coronary artery without angina pectoris Disposition: HOME, SELF-CARE Condition: Improved Departure-Patient Inst. Decision time for Depature: 15:02 Referrals: [facility] (PCP) Primary Care Physician NATAN DEL REAL APRN (Family) Primary Care Physician Patient Instructions: Chest Pain Add. Discharge Instructions: Increase ranolazine to 1000 mg twice daily. Continue all other medications as previously directed. Contact Dr. Christian's office for a follow-up appointment as soon as possible next week. Also contact your cardiothoracic surgeon's office to inform them of your ER visits. Return to the emergency room if you have recurrent episodes of chest pain. You may treat the chest pain with nitroglycerin as previously directed. All discharge instructions reviewed with patient and/or family. Voiced understanding. Scripts Cyclobenzaprine HCl (Cyclobenzaprine HCl) 10 Mg Tablet 10 MG PO Q8H PRN for SPASMS, #15 TAB 0 Refills Prov: JOSE J LANGFORD MD 01/01/23 JOSE J LANGFORD MD January 01, 2023 10:23
[2023-01-01] MEDS: ACETAMINOPHEN 500 MG TAB (TYLENOL) PO ONE ×2 (10:33→10:53)
[2023-01-01 15:13] VITALS: BP 133/81
[2023-01-01] MEDS ORDERED: CYCL10TA25 PO (15:15)
== END 2023-01-01 15:13 | disposition home or self-care (01) ==
LOC: EDUNIT# 09:04 → ER 09:05
DX: M25.512 Pain in left shoulder (principal); I25.10 Atherosclerotic heart disease of native coronary artery without angina pectoris; I10 Essential (primary) hypertension; E66.9 Obesity, unspecified; E11.9 Type 2 diabetes mellitus without complications; Z79.4 Long term (current) use of insulin; Z68.37 Body mass index [BMI] 37.0-37.9, adult
CPT/HCPCS: 36415; 71045; 80053; 83735; 83874; 84484; 85007; 85027; 85610; 85730; 93005; 93041

== ENCOUNTER 2023-01-08 06:34 | Observation (INO) | payer BC, OTHER ==
[~2023-01-08] VITALS: Ht 183 cm; Wt 120.7 kg
[~2023-01-08 06:34] MED LIST changes: +CYCL10TA25 PO
--- NOTE | 2023-01-08 06:53 | ED Chest Pain ---
General Chief Complaint: Chest Pain Stated Complaint: LEFT ARM PX,SLIGHT CHEST PAIN Nursing Triage Note: INTERMITTANT CHEST PAIN RADIATING TO LEFT SHOULDER X1 DAY, WORSE THIS AM. IMPROVES WITH NTG. Source: patient Exam Limitations: no limitations History of Present Illness Date Seen by Provider: January 08, 2023 Time Seen by Provider: 06:41 Initial Comments 57-year-old male presents to the emergency department today for chest pain, left shoulder pain. He had cardiac stents placed about [address] Christian. He states at that time he came in with left shoulder pain shortness of breath nausea and diaphoresis. He states current pain is similar in character but less severe. It sounds as though he had the pain all day yesterday and through the night. He states he has been seen a couple times for this and nitroglycerin relieves the pain with each occasion. Currently he rates his pain as mild. Last time he was here he was given some muscle relaxers for potential musculoskeletal causes of pain as he does have a "neck issue" for which she has been seeing a chiropractor. He states he did get diaphoretic this morning when his symptoms worsened. He denies any shortness of breath. No fevers or chills. No abdominal pain or changes in bowel or bladder habits. He has not taken nitroglycerin this morning. All other systems reviewed and negative except documented per HPI. Voice recognition software was used to help create this chart Allergies and Home Medications Allergies Coded Allergies: No Known Drug Allergies (Unverified , 05/23/18) Patient Home Medication List Home Medication List Reviewed: Yes Aspirin (Aspirin) 81 Mg Tab.chew, 81 MG PO DAILY, (Reported) Entered as Reported by: CAROL FITZGERALD on 11/10/221252 Last Action: Reviewed Atorvastatin Calcium (Atorvastatin Calcium) 80 Mg Tablet, 80 MG PO HS, (Reported) Entered as Reported by: CAROL FITZGERALD on 11/10/22 125 Last Action: Reviewed Bupropion HCl (Bupropion Xl) 300 Mg Tab.er.24h, 300 MG PO DAILY, (Reported) Entered as Reported by: CAROL FITZGERALD on 11/05/22 1536 Last Action: Reviewed Clopidogrel Bisulfate (Clopidogrel) 75 Mg Tablet, 75 MG PO DAILY, (Reported) Entered as Reported by: CAROL FITZGERALD on 11/10/22 125 Last Action: Reviewed Cyclobenzaprine HCl (Cyclobenzaprine HCl) 10 Mg Tablet, 10 MG PO Q8H PRN for MUSCLE SPASMS, (Reported) Entered as Reported by: CAROL FITZGERALD on 01/08/231140 Last Action: Reviewed Fenofibrate,Micronized (Fenofibrate) 134 Mg Capsule, 134 MG PO DAILY, (Reported) Entered as Reported by: CAROL FITZGERALD on 01/08/231140 Last Action: Reviewed Insulin Glargine,Hum.rec.anlog (Lantus Solostar) 100 Unit/Ml (3 Ml) Insuln.pen, 18 UNIT SQ HS, (Reported) Entered as Reported by: CAROL FITZGERALD on 01/08/231140 Last Action: Reviewed Insulin Regular, Human (NovoLIN R Flexpen) 100 Unit/Ml (3 Ml) Insuln.pen, 10 UNIT SQ AC, (Reported) Entered as Reported by: CAROL FITZGERALD on 01/08/231140 Last Action: Reviewed Metformin HCl (Metformin HCl ER) 500 Mg Tab.er.24h, 1,000 MG PO BID, (Reported) Entered as Reported by: CAROL FITZGERALD on 11/05/22 1536 Last Action: Reviewed Metoprolol Tartrate (Metoprolol Tartrate) 25 Mg Tablet, 12.5 MG PO BID, (Reported) Entered as Reported by: CARLO FITZGERALD on 01/08/231140 Last Action: Reviewed Nitroglycerin (Nitroglycerin) 0.4 Mg Tab.subl, 0.4 MG SL UD PRN for CHEST PAIN, (Reported) Entered as Reported by: CAROL FITZGERALD on 11/10/22 1253 Last Action: Reviewed Ranolazine (Ranolazine ER) 500 Mg Tab.er.12h, 500 MG PO Q12H, (Reported) Entered as Reported by: CAROL FITZGERALD on 01/08/231140 Last Action: Reviewed Semaglutide (Ozempic) 2 Mg/0.75 Ml (8 Mg/3 Ml) Pen.injctr, 2 MG SQ TUE, (Reported) Entered as Reported by: CAROL FITZGERALD on 01/08/231140 Last Action: Reviewed Venlafaxine HCl (Venlafaxine HCl ER) 75 Mg Cap.er.24h, 225 MG PO DAILY, (Reported) Entered as Reported by: CAROL FITZGERALD on 11/05/22 153 Last Action: Reviewed Discontinued Medications Acetaminophen (Tylenol Extra Strength) 500 Mg Tablet, 1,000 MG PO Q8H PRN for PAIN-MILD (1-4), (Reported) Discontinued Reason: No Longer Taking Entered as Reported by: CAROL FITZGERALD on 11/05/22 153 Last Action: Discontinued Cyclobenzaprine HCl (Cyclobenzaprine HCl) 10 Mg Tablet, 10 MG PO Q8H PRN for SPASMS Discontinued Reason: Duplicate Order Prescribed by: JOSE J DUMONT on 01/01/23 1515 Last Action: Discontinued Fenofibrate Nanocrystallized (Fenofibrate) 145 Mg Tablet, 145 MG PO DAILY, (Reported) Discontinued Reason: No Longer Taking Entered as Reported by: CAROL FITZGERALD on 11/10/22 1253 Last Action: Discontinued Glipizide (Glipizide) 10 Mg Tablet, 10 MG PO BID, (Reported) Discontinued Reason: No Longer Taking Entered as Reported by: CAROL FITZGERALD on 11/05/22 153 Last Action: Discontinued Insulin Regular, Human (NovoLIN R Flexpen) 100 Unit/Ml (3 Ml) Insuln.pen, 15 UNIT SQ AC Discontinued Reason: Duplicate Order Prescribed by: NEEL GALINDO on 11/06/22 154 Last Action: Discontinued Metoprolol Succinate (Metoprolol Succinate) 25 Mg Tab.er.24h, 12.5 MG PO DAILY Discontinued Reason: Duplicate Order Prescribed by: NEEL GALINDO on 11/06/22 154 Last Action: Discontinued Review of Systems Review of Systems Constitutional: see HPI Past Wnxhvqg-Wlhsnq-Ltebpw Hx Patient Social History Tobacco Use?: Yes Substance use?: No Alcohol Use?: No Pt feels they are or have been: No Immunizations Up To Date First/Initial COVID19 Vaccinat: OCTOBER 2020 Second COVID19 Vaccination Yahir: NOVEMBER 2020 Third COVID19 Vaccination Date: NONE Seasonal Allergies Seasonal Allergies: Yes Past Medical History Surgery/Hospitalization HX: CARDIAC STENT AND ANGIOPLASTY 11/05/22, BYPASS SCHEDULED 01/2023 IDDM, OBESITY, GOUT, UMBILICAL HERNIA, HTN, HLD Surgeries: Yes (UMB HERNIA, HEART CATH X2) Abdominal, Cardiac, Coronary Stent Respiratory: Yes Sleep Apnea Currently Using CPAP: Yes Cardiac: Yes Coronary Artery Disease, Heart Attack, High Cholesterol, Hypertension Neurological: No Reproductive Disorders: No Sexually Transmitted Disease: No HIV/AIDS: No Genitourinary: No Gastrointestinal: Yes Abdominal Hernia, Gastroesophageal Reflux, Diverticulosis, Hemorrhoids, Polyps Musculoskeletal: Yes Arthritis, Chronic Back Pain Endocrine: Yes (OBESITY) Diabetes, Insulin dep HEENT: No Loss of Vision: Bilateral Hearing Impairment: Denies Cancer: No Psychosocial: Yes Anxiety, Depression Integumentary: No Blood Disorders: No Adverse Reaction/Blood Tranf: No (N/A) Family Medical History Reviewed Nursing Family Hx Heart Disease, Cancer, CVA, Diabetes, Other Conditions/Hx 05/25/2018--RIGHT KNEE SCOPE BY DR. INFANTE COLONOSCOPY 07/21/[address] MATTHEWS: Pre-Operative Diagnosis screening colonoscopy Post-Operative Diagnosis Polyp Diverticula int hemorrhoids CARDIAC CATH 11/05/[address] CHRISTIAN: PERCUTANEOUS CORONARY INTERVENTION: 1. LCx (stenting): Pre- 95% with SUBHA 2; Post- 0% with SUBHA 3; Guide JL-4; Wire- Choice Floppy; Balloon 3.0 x 30; Stent- Skypoint 3.5 x 15 2. LAD D2 (balloon only): Pre- 99% with SUBHA 2; Post- <50% with SUBHA 3; Guide JL-4; Wire- Choice Floppy; Balloon 2.0 x 30 Physical Exam Vital Signs Vital Signs - First Documented 01/08/23 06:40 Temp 36.2 Pulse 76 Resp 16 B/P (MAP) 124/76 (92) Pulse Ox 97 O2 Delivery Room Air Capillary Refill : Less Than 3 Seconds Height, Weight, BMI Height: 6'1.00" Weight: 330lbs. 3.0oz. 149.567222ma; 37.00 BMI Method:Stated General Appearance: No Apparent Distress, WD/WN HEENT: Normal ENT Inspection, Pharynx Normal Neck: Full Range of Motion, Normal Inspection, Non Tender, Supple Respiratory: Chest Non Tender, Lungs Clear, Normal Breath Sounds, No Accessory Muscle Use, No Respiratory Distress Cardiovascular: Regular Rate, Rhythm, No Murmur, Normal Peripheral Pulses Gastrointestinal: Normal Bowel Sounds, Non Tender, Soft Extremity: Normal Capillary Refill, Normal Inspection, Normal Range of Motion, Non Tender, No Calf Tenderness, No Pedal Edema Neurologic/Psychiatric: Alert, Oriented x3, Normal Mood/Affect Skin: Normal Color, Warm/Dry Lymphatic: No Adenopathy Critical Care Note Critical Care Total Time (minutes) 60 Progress/Results/Core Measures Results/Orders Lab Results Laboratory Tests Test 01/08/23 06:45 Range/Units White Blood Count 11.8 H 4.3-11.0 10^3/uL Red Blood Count 5.21 4.30-5.52 10^6/uL Hemoglobin 14.9 13.3-17.7 g/dL Hematocrit 45 40-54 % Mean Corpuscular Volume 87 80-99 fL Mean Corpuscular Hemoglobin 29 25-34 pg Mean Corpuscular Hemoglobin Concent 33 32-36 g/dL Red Cell Distribution Width 14.1 10.0-14.5 % Platelet Count 416 H 130-400 10^3/uL Mean Platelet Volume 9.6 9.0-12.2 fL Immature Granulocyte % (Auto) 1 % Neutrophils (%) (Auto) 51 42-75 % Lymphocytes (%) (Auto) 25 12-44 % Monocytes (%) (Auto) 10 0-12 % Eosinophils (%) (Auto) 13 H 0-10 % Basophils (%) (Auto) 0 0-10 % Neutrophils # (Auto) 6.0 1.8-7.8 10^3/uL Lymphocytes # (Auto) 2.9 1.0-4.0 10^3/uL Monocytes # (Auto) 1.2 H 0.0-1.0 10^3/uL Eosinophils # (Auto) 1.5 H 0.0-0.3 10^3/uL Basophils # (Auto) 0.0 0.0-0.1 10^3/uL Immature Granulocyte # (Auto) 0.1 0.0-0.1 10^3/uL Neutrophils % (Manual) 55 % Lymphocytes % (Manual) 22 % Monocytes % (Manual) 8 % Eosinophils % (Manual) 14 % Basophils % (Manual) 1 % Band Neutrophils 0 % Blood Morphology Comment NORMAL Sodium Level 137 135-145 MMOL/L Potassium Level 4.2 3.6-5.0 MMOL/L Chloride Level 106 98-107 MMOL/L Carbon Dioxide Level 17 L 21-32 MMOL/L Anion Gap 14 5-14 MMOL/L Blood Urea Nitrogen 22 H 7-18 MG/DL Creatinine 1.36 H 0.60-1.30 MG/DL Estimat Glomerular Filtration Rate 60 BUN/Creatinine Ratio 16 Glucose Level 153 H 70-105 MG/DL Calcium Level 9.3 8.5-10.1 MG/DL Corrected Calcium 9.1 8.5-10.1 MG/DL Total Bilirubin 0.6 0.1-1.0 MG/DL Aspartate Amino Transf (AST/SGOT) 19 5-34 U/L Alanine Aminotransferase (ALT/SGPT) 22 0-55 U/L Alkaline Phosphatase 83 40-136 U/L Troponin I 0.111 H <0.028 NG/ML Total Protein 7.7 6.4-8.2 GM/DL Albumin 4.3 3.2-4.5 GM/DL Triglycerides Level 130 <150 MG/DL Cholesterol Level 97 < 200 MG/DL LDL Cholesterol Direct 48 1-129 MG/DL VLDL Cholesterol 26 5-40 MG/DL HDL Cholesterol 27 L 40-60 MG/DL My Orders Orders - BEANMATTHEW DO Troponin I [place] (01/08/23 06:47) Chest 1 View, Ap/Pa Only (01/08/23 06:47) Cbc With Automated Diff (01/08/23 06:47) Comprehensive Metabolic Panel (01/08/23 06:47) Ekg Tracing (01/08/23 06:47) Aspirin Chewable Tablet (Baby Aspirin Ch (01/08/23 07:00) Nitroglycerin 0.4 Mg Btl 25's (Nitrostat (01/08/23 07:00) Manual Differential (01/08/23 06:45) Ed Admission (Communication) (01/08/23 07:47) Medications Given in ED Current Medications Medications Dose Ordered Sig/All Route Start Time Stop Time Status Last Admin Dose Admin Aspirin 324 mg ONCE ONCE PO 01/08/23 07:00 01/08/23 07:01 DC 01/08/23 06:53 324 MG Nitroglycerin 0.4 mg NEEDED PRN SL 01/08/23 07:00 01/08/23 08:39 DC 01/08/23 08:28 0.4 MG Vital Signs/I&O 01/08/23 01/08/23 06:40 07:55 Temp 36.2 Pulse 76 72 Resp 16 16 B/P (MAP) 124/76 (92) 102/76 Pulse Ox 97 97 O2 Delivery Room Air Room Air Blood Pressure Mean: 92 Comment Sinus rhythm with a rate of 75 beats minute. Normal intervals. Left axis deviation. No ST or T wave abnormalities. No ectopy. No STEMI. Departure Communication (Admissions) Patient's troponin is slightly elevated after previously undetectable since his cardiac stents. He is pain-free after single nitroglycerin. He is on aspirin here as well. His EKG is nonischemic. I spoke to Dr. Delgadillo who accepts the patient in admission. He states he will likely take him to the [facility] today. I spoke to Dr. Galindo who agrees with plan of care and will write acute care orders. Request observation to stepdown bed. Patient is comfortable agreeable current plan of care. I have currently reviewed his chest x-ray showing no evidence of acute cardiopulmonary or bony abnormalities. EKG is nonischemic on my independent interpretation as well Impression Primary Impression: Chest pain Qualified Codes: R07.9 - Chest pain, unspecified Additional Impression: Elevated troponin Disposition: ADMITTED INPATIENT Condition: Stable Departure-Patient Inst. Referrals: [facility] (PCP) Primary Care Physician NATAN DEL REAL APRN (Family) Primary Care Physician MATTHEW DEL ANGEL DO January 08, 2023 06:53
[2023-01-08 06:56] LABS: BASOPHILS % (AUTO) 0 % (0-10); EOSINOPHILS # (AUTO) 1.5 10^3/uL (0.0-0.3); EOSINOPHILS % (AUTO) 13 % (0-10); HEMATOCRIT 45 % (40-54); HEMOGLOBIN 14.9 g/dL (13.3-17.7); LYMPHOCYTES # (AUTO) 2.9 10^3/uL (1.0-4.0); LYMPHOCYTES % (AUTO) 25 % (12-44); MEAN CORPUSCULAR HEMOGLOBIN 29 pg (25-34); MEAN CORPUSCULAR HGB CONC 33 g/dL (32-36); MEAN CORPUSCULAR VOLUME 87 fL (80-99); MEAN PLATELET VOLUME 9.6 fL (9.0-12.2); MONOCYTES # (AUTO) 1.2 10^3/uL (0.0-1.0); MONOCYTES % (AUTO) 10 % (0-12); NEUTROPHILS % (AUTO) 51 % (42-75); PLATELET COUNT 416 10^3/uL (130-400); WHITE BLOOD COUNT 11.8 10^3/uL (4.3-11.0)
[2023-01-08] MEDS ORDERED: NITROGLYCERIN 0.4 MG SL TABS BTL 25'S SL PRN ×2 (07:00→16:00)
[2023-01-08] MEDS ORDERED: ASPIRIN 81 MG CHEW (CHILDREN'S ASA) PO ONE (07:00)
[2023-01-08 07:10] LABS: ALBUMIN 4.3 GM/DL (3.2-4.5)
[2023-01-08 07:11] LABS: POTASSIUM 4.2 MMOL/L (3.6-5.0)
[2023-01-08 07:12] LABS: CALCIUM 9.3 MG/DL (8.5-10.1)
[2023-01-08 07:13] LABS: TOTAL PROTEIN 7.7 GM/DL (6.4-8.2)
[2023-01-08 07:15] LABS: BILIRUBIN,TOTAL 0.6 MG/DL (0.1-1.0)
[2023-01-08 07:17] LABS: CREATININE SERUM 1.36 MG/DL (0.60-1.30)
--- NOTE | 2023-01-08 07:33 | Diagnostic Imaging Report ---
Clinical indications: Patient with chest pain. EXAM: Portable chest x-ray upright view. COMPARISON: Chest x-ray dated 01/01/2023. FINDINGS: Lungs/pleura: Lungs are clear. There is no pneumothorax. There is no pleural effusion. Mediastinum: Unremarkable. Pulmonary vasculature: Unremarkable. Heart: Unremarkable. Bones/extrathoracic soft tissue: Unremarkable. IMPRESSION: There is no radiographic evidence of acute cardiopulmonary process. Dictated by: Dictated on workstation # [id number]
[2023-01-08 07:59] LABS: BAND NEUTROPHILS 0 %; BASOPHILS % (MANUAL) 1 %; EOSINOPHILS % (MANUAL) 14 %; LYMPHOCYTES % (MANUAL) 22 %; MONOCYTES % (MANUAL) 8 %; NEUTROPHILS % (MANUAL) 55 %; RBC MORPH NORMAL
--- NOTE | 2023-01-08 08:23 | History & Physical-Hospitalist ---
History of Present Illness HPI/Chief Complaint CC: Unstable angina HPI: This is a 58yoWM clinic patient of [facility] who is known to me from prior admit who was admitted for chest pain. He has a h/o multiple recent stents placed for FL but in need of CABG. Patient was admitted and Cardiology evaluated him to have unstable angina in need of CABG so he was transferred to [facility]. Source: patient, family, RN/MD, old records Exam Limitations: no limitations Date Seen 01/08/23 Time Seen by a Provider: 10:00 Attending Physician [place] PCP Admitting Physician: Ale Galindo DO Attending Physician: Ale Galindo DO Referring Physician Date of Admission January 08, 2023 at 08:07 Home Medications & Allergies Home Medications Reviewed patient Home Medication Reconciliation performed by pharmacy medication reconciliations psychiatric technician assistant and/or nursing. Patients Allergies have been reviewed. Allergies Allergies Coded Allergies No Known Drug Allergies (Unverified05/23/18) Past Iazjvpp-Eoiqnv-Hwlvus Hx Patient Social History Marrital Status: Employed/Student: retired Tobacco Use?: Yes Smoking Status: Former Smoker Substance use?: No Alcohol Use?: No Pt feels they are or have been: No Immunizations Up To Date First/Initial COVID19 Vaccinat: OCTOBER 2020 Second COVID19 Vaccination Yahir: NOVEMBER 2020 Tetanus Booster (TDap): Unknown Seasonal Allergies Seasonal Allergies: Yes Current Status Advance Directives: No Communicates: Verbally Primary Language: [place] Preferred Spoken Language: [place] Is interpretation needed?: No Past Medical History Surgeries: Abdominal, Cardiac, Coronary Stent Sleep Apnea Currently Using CPAP: Yes Coronary Artery Disease, Heart Attack, High Cholesterol, Hypertension Sexually Transmitted Disease: No HIV/AIDS: No Abdominal Hernia, Gastroesophageal Reflux, Diverticulosis, Hemorrhoids, Polyps Arthritis, Chronic Back Pain Diabetes, Insulin dep Loss of Vision: Bilateral Hearing Impairment: Denies Anxiety, Depression Blood Disorders: No Adverse Reaction/Blood Tranf: No (N/A) Family Medical History Reviewed Nursing Family Hx Heart Disease, Cancer, CVA, Diabetes, Other Conditions/Hx 05/25/2018--RIGHT KNEE SCOPE BY DR. INFANTE COLONOSCOPY 07/21/[address] MATTHEWS: Pre-Operative Diagnosis screening colonoscopy Post-Operative Diagnosis Polyp Diverticula int hemorrhoids CARDIAC CATH 11/05/[address] CROWLEY: PERCUTANEOUS CORONARY INTERVENTION: 1. LCx (stenting): Pre- 95% with SUBHA 2; Post- 0% with SUBHA 3; Guide JL-4; Wire- Choice Floppy; Balloon 3.0 x 30; Stent- Skypoint 3.5 x 15 2. LAD D2 (balloon only): Pre- 99% with SUBHA 2; Post- <50% with SUBHA 3; Guide JL-4; Wire- Choice Floppy; Balloon 2.0 x 30 Review of Systems Constitutional: see HPI Cardiovascular: chest pain Physical Exam Physical Exam Vital Signs Vital Signs - First Documented 01/08/23 01/08/23 06:40 10:46 Temp 36.2 Pulse 76 Resp 16 B/P (MAP) 124/76 (92) Pulse Ox 97 O2 Delivery Room Air FiO2 21 Capillary Refill : Less Than 3 Seconds Height, Weight, BMI Height: 6'1.00" Weight: 330lbs. 3.0oz. 149.187341fo; 37.00 BMI Method:Stated General Appearance: No Apparent Distress, Chronically ill Eyes: Right Eye Normal Inspection, Right Eye PERRL HEENT: PERRL/EOMI, Normal ENT Inspection, Pharynx Normal, Moist Mucous Membranes Neck: Full Range of Motion, Normal Inspection, Non Tender Respiratory: Chest Non Tender, Lungs Clear, Normal Breath Sounds, No Accessory Muscle Use, No Respiratory Distress Cardiovascular: Regular Rate, Rhythm, No Edema, No Gallop, No JVD, No Murmur, Normal Peripheral Pulses Gastrointestinal: Normal Bowel Sounds, No Organomegaly, No Pulsatile Mass, Non Tender, Soft Back: Normal Inspection, No CVA Tenderness, No Vertebral Tenderness Extremity: Normal Capillary Refill, Normal Inspection, Normal Range of Motion, Non Tender, No Calf Tenderness, No Pedal Edema Neurologic/Psychiatric: Alert, Oriented x3, No Motor/Sensory Deficits, Normal Mood/Affect Skin: Normal Color, Warm/Dry Lymphatic: No Adenopathy Results Results/Procedures Labs Laboratory Tests 01/08/23 06:45 Patient resulted labs reviewed. Assessment/Plan Admission Diagnosis Assessment: Unstable angina CAD recent stents CABG planned HTN HLP KENNY Plan: Transfer to [facility] Admission Status: Observation ALE GALINDO DO January 08, 2023 08:22
[2023-01-08] MEDS ORDERED: ACETAMINOPHEN 325 MG TABLET PO PRN ×2 (08:30)
[2023-01-08] MEDS ORDERED: ANTACID SUSP 30 ML UDC (MYLANTA) PO PRN ×2 (08:30)
[2023-01-08] MEDS ORDERED: MILK OF MAGNESIA 400 MG/5 ML 30 ML UDC PO PRN ×2 (08:30)
[2023-01-08] MEDS ORDERED: ENOXAPARIN 100 MG/1 ML (LOVENOX) SYR SC SCH (08:30)
[2023-01-08] MEDS ORDERED: MELATONIN 3 MG TABLET PO PRN ×2 (08:30)
[2023-01-08] MEDS ORDERED: LACTULOSE SYRUP 10GM/15ML (ENULOSE) 30ML UDC PO PRN ×2 (08:30)
[2023-01-08] MEDS ORDERED: BISACODYL 10 MG SUPP (DULCOLAX) PR PRN ×2 (08:30)
[2023-01-08] MEDS ORDERED: diphenhydrAMINE 25 MG TAB (BENADRYL) PO PRN ×2 (08:30)
[2023-01-08] MEDS ORDERED: ONDANSETRON 4 MG (ZOFRAN) ORAL DISSOLVE TAB PO PRN ×2 (08:30)
[2023-01-08] MEDS ORDERED: diphenhydrAMINE 50 MG/ML INJ (BENADRYL) IVP PRN ×2 (08:30)
[2023-01-08] MEDS ORDERED: morphine INJ 4 MG/ML 1 ML (VIAL/SYRINGE) IV PRN (08:30)
[2023-01-08] MEDS ORDERED: ALPRAZolam 0.5 MG (XANAX) TAB PO PRN ×2 (08:30)
[2023-01-08] MEDS ORDERED: ONDANSETRON 4 MG/2 ML (SDV) Z0FRAN IV PRN ×2 (08:30)
[2023-01-08] MEDS ORDERED: CALCIUM CARBONATE 500 MG (TUMS) TAB.CHEW PO PRN ×2 (08:30)
[2023-01-08] MEDS ORDERED: polyethylene glycoL POWDER 17 GM (MIRALAX) PACK PO PRN ×2 (08:30)
[2023-01-08 08:50] LABS: TRIGLYCERIDES 130 MG/DL (<150); VLDL CHOLESTEROL 26 MG/DL (5-40)
[2023-01-08 08:55] LABS: CHOLESTEROL 97 MG/DL (< 200)
[2023-01-08 08:56] LABS: HDL CHOLESTEROL 27 MG/DL (40-60)
[2023-01-08] MEDS ORDERED: DOCUSATE SODIUM 100 MG (COLACE) CAP PO SCH ×2 (09:00)
[2023-01-08] MEDS ORDERED: ASPIRIN E.C. 81 MG (ECOTRIN) TAB PO SCH ×2 (09:00)
[2023-01-08] MEDS ORDERED: ENOXAPARIN 120 MG/0.8 ML (LOVENOX) SQ SCH (09:00)
[2023-01-08] MEDS ORDERED: SENNOSIDES 8.6 MG (SENOKOT) TAB PO SCH ×2 (09:00)
[2023-01-08] MEDS ORDERED: HEParin 1000 UNIT/ML (10ML VIAL) FOR BOLUS IV SCH (10:00)
[2023-01-08] MEDS: morphine INJ 4 MG/ML 1 ML (VIAL/SYRINGE) IV PRN ×2 (10:07→15:22)
[2023-01-08] MEDS ORDERED: HEParin DRIP 25000 UNIT/500ML 500 ML IV SCH (10:45)
[2023-01-08] MEDS ORDERED: HEParin 1000 UNIT/ML (10ML VIAL) FOR BOLUS IV PRN (10:45)
[2023-01-08 10:46] VITALS: BP 124/89
[2023-01-08] MEDS ORDERED: RT-ALBUTEROL/IPRATROPIUM 3 ML (DUONEB) VIAL INH PRN (11:00)
--- NOTE | 2023-01-08 11:11 | Consultation-Cardiology ---
HPI-Cardiology Cardiology Consultation: Date of Consultation 01/08/23 Date of Admission Attending Physician [place] Admitting Physician Admitting Physician: Ale Galindo DO Attending Physician: Ale Galindo DO Consulting Physician Kenna AKBAR MD HPI: Time Seen by a Provider: 09:30 Chief Complaint: Chest pain This is a 57-year-old gentleman who has previous history of non-STEMI with PCI with drug-eluting stent to the left circumflex artery on 11/05/2022. Indication was non-STEMI. Left circumflex artery had 95% mid vessel stenosis which was treated with a drug-eluting stent 3.5 x 15 mm. Patient has history of diabetes. He presents with prolonged episode of chest pain this morning. Positive troponin. Occasional smoker. Denies any significant family history. When I saw the patient he was chest pain-free. Review of Systems-Cardiology Review of Systems Constitutional: As described under HPI; No As described under HPI, No no symptoms reported, No chills, No fever, No lightheadedness Eyes: No As described under HPI, No no symptoms reported, No blindness, No blurred vision, No contact lenses, No drainage, No decreased acuity, No foreign body sensation, No pain, No vision change Ears/Nose/Throat: No As described under HPI, No no symptoms reported, No chronic hearing loss, No ear discharge, No ear pain, No nasal drainage, No ulcerations Respiratory: No no symptoms reported; As described under HPI; No As described under HPI, No cough, No orthopnea, No shortness of breath, No SOB with excertion Cardiovascular: No no symptoms reported; As described under HPI; No As described under HPI; chest pain; No edema, No irregular heart rate, No lightheadedness, No palpitations Gastrointestinal: No no symptoms reported, No As described under HPI, No abdomen distended, No abdominal pain, No blood streaked bowels, No constipation, No diarrhea, No nausea, No vomiting, No stool coloration changes Genitourinary: No As described under HPI, No burning, No dysuria, No discharge, No frequency, No flank pain, No hematuria, No urgency Skin: No rash, No skin related problems, No ulcerations Psychiatric/Neurological: No anxiety, No depression, No seizure, No focal weakness, No syncope Hematologic: No bleeding abnormalities IBA-[id number]-[id number] Hx Patient Social History 2nd Hand Smoke Exposure: No Have you traveled recently?: No Alcohol Use?: Yes Pt feels they are or have been: No Tobacco type used: Cigars Past Medical History PMH As described under Assessment. Family Medical History Family Medical History: He reports he had a daughter with WPW and a pacemaker. He reporst a sister who has had a stroke. Allergies and Home Medications Allergies Coded Allergies: No Known Drug Allergies (Unverified , 05/23/18) Patient Home Medication List Home Medication List Reviewed: Yes Acetaminophen (Tylenol Extra Strength) 500 Mg Tablet, 1,000 MG PO Q8H PRN for PAIN-MILD (1-4), (Reported) Entered as Reported by: CAROL FITZGERALD on 11/05/221535 Aspirin (Aspirin) 81 Mg Tab.chew, 81 MG PO DAILY, (Reported) Entered as Reported by: CAROL FITZGERALD on 11/10/221252 Last Action: Last Taken Edited Atorvastatin Calcium (Atorvastatin Calcium) 80 Mg Tablet, 80 MG PO HS, (Reported) Entered as Reported by: CAROL FITZGERALD on 11/10/221252 Last Action: Last Taken Edited Bupropion HCl (Bupropion Xl) 300 Mg Tab.er.24h, 300 MG PO DAILY, (Reported) Entered as Reported by: CAROL FITZGERALD on 11/05/221535 Last Action: Last Taken Edited Clopidogrel Bisulfate (Clopidogrel) 75 Mg Tablet, 75 MG PO DAILY, (Reported) Entered as Reported by: CAROL FITZGERALD on 11/10/221252 Last Action: Last Taken Edited Cyclobenzaprine HCl (Cyclobenzaprine HCl) 10 Mg Tablet, 10 MG PO Q8H PRN for SPA SMS Prescribed by: JOSE J DUMONT on 01/01/23 1515 Last Action: Last Taken Edited Fenofibrate Nanocrystallized (Fenofibrate) 145 Mg Tablet, 145 MG PO DAILY, (Reported) Entered as Reported by: CAROL FITZGERALD on 11/10/221252 Last Action: Last Taken Edited Glipizide (Glipizide) 10 Mg Tablet, 10 MG PO BID, (Reported) Entered as Reported by: CAROL FITZGERALD on 11/05/221535 Last Action: Last Taken Edited Insulin Regular, Human (NovoLIN R Flexpen) 100 Unit/Ml (3 Ml) Insuln.pen, 15 UNIT SQ AC Prescribed by: ALE GALINDO on 11/06/22 154 Last Action: Last Taken Edited Metformin HCl (Metformin HCl ER) 500 Mg Tab.er.24h, 1,000 MG PO BID, (Reported) Entered as Reported by: CAROL FITZGERALD on 11/05/22 153 Last Action: Last Taken Edited Metoprolol Succinate (Metoprolol Succinate) 25 Mg Tab.er.24h, 12.5 MG PO DAILY Prescribed by: ALE GALINDO on 11/06/22 154 Last Action: Last Taken Edited Nitroglycerin (Nitroglycerin) 0.4 Mg Tab.subl, 0.4 MG SL UD PRN for CHEST PAIN, (Reported) Entered as Reported by: CAROL FITZGERALD on 11/10/22 1253 Last Action: Last Taken Edited Venlafaxine HCl (Venlafaxine HCl ER) 75 Mg Cap.er.24h, 225 MG PO DAILY, (Reported) Entered as Reported by: CAROL FITZGERALD on 11/05/221535 Last Action: Last Taken Edited Exam Vital Signs Vital Signs Date Time Temp Pulse Resp B/P (MAP) Pulse Ox O2 Delivery O2 Flow Rate FiO2 01/08/23 10:55 97 Room Air 01/08/23 10:46 36.2 76 21 01/08/23 08:20 24 124/89 (101) Physical Exam Normal cardiovascular and respiratory examination Labs Laboratory Tests Test 01/08/23 06:45 01/08/23 10:57 Range/Units White Blood Count 11.8 H 4.3-11.0 10^3/uL Red Blood Count 5.21 4.30-5.52 10^6/uL Hemoglobin 14.9 13.3-17.7 g/dL Hematocrit 45 40-54 % Mean Corpuscular Volume 87 80-99 fL Mean Corpuscular Hemoglobin 29 25-34 pg Mean Corpuscular Hemoglobin Concent 33 32-36 g/dL Red Cell Distribution Width 14.1 10.0-14.5 % Platelet Count 416 H 130-400 10^3/uL Mean Platelet Volume 9.6 9.0-12.2 fL Immature Granulocyte % (Auto) 1 % Neutrophils (%) (Auto) 51 42-75 % Lymphocytes (%) (Auto) 25 12-44 % Monocytes (%) (Auto) 10 0-12 % Eosinophils (%) (Auto) 13 H 0-10 % Basophils (%) (Auto) 0 0-10 % Neutrophils # (Auto) 6.0 1.8-7.8 10^3/uL Lymphocytes # (Auto) 2.9 1.0-4.0 10^3/uL Monocytes # (Auto) 1.2 H 0.0-1.0 10^3/uL Eosinophils # (Auto) 1.5 H 0.0-0.3 10^3/uL Basophils # (Auto) 0.0 0.0-0.1 10^3/uL Immature Granulocyte # (Auto) 0.1 0.0-0.1 10^3/uL Neutrophils % (Manual) 55 % Lymphocytes % (Manual) 22 % Monocytes % (Manual) 8 % Eosinophils % (Manual) 14 % Basophils % (Manual) 1 % Band Neutrophils 0 % Blood Morphology Comment NORMAL Sodium Level 137 135-145 MMOL/L Potassium Level 4.2 3.6-5.0 MMOL/L Chloride Level 106 98-107 MMOL/L Carbon Dioxide Level 17 L 21-32 MMOL/L Anion Gap 14 5-14 MMOL/L Blood Urea Nitrogen 22 H 7-18 MG/DL Creatinine 1.36 H 0.60-1.30 MG/DL Estimat Glomerular Filtration Rate 60 BUN/Creatinine Ratio 16 Glucose Level 153 H 70-105 MG/DL Calcium Level 9.3 8.5-10.1 MG/DL Corrected Calcium 9.1 8.5-10.1 MG/DL Total Bilirubin 0.6 0.1-1.0 MG/DL Aspartate Amino Transf (AST/SGOT) 19 5-34 U/L Alanine Aminotransferase (ALT/SGPT) 22 0-55 U/L Alkaline Phosphatase 83 40-136 U/L Troponin I 0.111 H <0.028 NG/ML Total Protein 7.7 6.4-8.2 GM/DL Albumin 4.3 3.2-4.5 GM/DL Triglycerides Level 130 <150 MG/DL Cholesterol Level 97 < 200 MG/DL LDL Cholesterol Direct 48 1-129 MG/DL VLDL Cholesterol 26 5-40 MG/DL HDL Cholesterol 27 L 40-60 MG/DL Diagnosis/Problems Diagnosis/Problems (1) Non-STEMI (non-ST elevated myocardial infarction) Status: Acute A/P-Cardiology Assessment/Admission Diagnosis Non-STEMI, Diabetes, Known multivessel CAD, Occasional smoker Plan This is a 57-year-old gentleman who has had previous non-STEMI in October 2022 requiring a drug-eluting stent to the left circumflex artery. He presented subsequently and had coronary angiography which showed multivessel disease and was sent for cardiac surgery evaluation. Cardiac surgery evaluation was done at [facility] in [place]. According to the patient CABG is probably to be done in January 2023. He presents again with chest pain and positive troponins. He is chest pain-free when I saw the patient. He is on aspirin and Plavix as an outpatient. A dose of Lovenox was given. Due to acute coronary syndrome and known history of multivessel disease awaiting cardiac surgery; I will arrange transfer to [facility] in [place]. This was discussed with the patient and family. Smoking cessation was recommended. Reasonable diabetes control. Cardiology and cardiac surgery in [facility] Kenna AKBAR MD January 08, 2023 11:11
[2023-01-08] MEDS ORDERED: FENO134C21 PO (11:41)
[2023-01-08] MEDS ORDERED: SEMA2PEN SQ (11:41)
[2023-01-08] MEDS ORDERED: RANO500T6 PO (11:41)
[2023-01-08] MEDS ORDERED: INSU100I51 SQ (11:41)
[2023-01-08] MEDS ORDERED: CYCL10TA25 PO (11:41)
[2023-01-08] MEDS ORDERED: METO-333 PO (11:41)
[2023-01-08] MEDS ORDERED: INSU100I10 SQ (11:41)
--- NOTE | 2023-01-08 12:07 | Discharge Summary ---
Discharge Summary Hospital Course Was the Problem List Reviewed?: Yes Problems/Dx: (1) Non-STEMI (non-ST elevated myocardial infarction) Status: Acute Hospital Course Date of Admission: January 08, 2023 at 08:07 Admission Diagnosis : Family Physician/Provider: Laverne Munoz Aprn Date of Discharge: 01/08/23 Discharge Diagnosis: [ ] Hospital Course: see hpi Labs and Pending Lab Test: Laboratory Tests 01/08/23 06:45: White Blood Count 11.8H, Red Blood Count 5.21, Hemoglobin 14.9, Hematocrit 45, Mean Corpuscular Volume 87, Mean Corpuscular Hemoglobin 29, Mean Corpuscular Hemoglobin Concent 33, Red Cell Distribution Width 14.1, Platelet Count 416H, Mean Platelet Volume 9.6, Immature Granulocyte % (Auto) 1, Neutrophils (%) (Auto) 51, Lymphocytes (%) (Auto) 25, Monocytes (%) (Auto) 10, Eosinophils (%) (Auto) 13H, Basophils (%) (Auto) 0, Neutrophils # (Auto) 6.0, Lymphocytes # (Auto) 2.9, Monocytes # (Auto) 1.2H, Eosinophils # (Auto) 1.5H, Basophils # (Auto) 0.0, Immature Granulocyte # (Auto) 0.1, Neutrophils % (Manual) 55, Lymphocytes % (Manual) 22, Monocytes % (Manual) 8, Eosinophils % (Manual) 14, Basophils % (Manual) 1, Band Neutrophils 0, Blood Morphology Comment NORMAL, Sodium Level 137, Potassium Level 4.2, Chloride Level 106, Carbon Dioxide Level 17L, Anion Gap 14, Blood Urea Nitrogen 22H, Creatinine 1.36H, Estimat Glomerular Filtration Rate 60, BUN/Creatinine Ratio 16, Glucose Level 153H, Calcium Level 9.3, Corrected Calcium 9.1, Total Bilirubin 0.6, Aspartate Amino Transf (AST/SGOT) 19, Alanine Aminotransferase (ALT/SGPT) 22, Alkaline Phosphatase 83, Troponin I 0.111H, Total Protein 7.7, Albumin 4.3, Triglycerides Level 130, Cholesterol Level 97, LDL Cholesterol Direct 48, VLDL Cholesterol 26, HDL Cholesterol 27L 01/08/23 10:57: Activated Partial Thromboplast Time 42H Home Meds Active Reported Lantus Solostar (Insulin Glargine,Hum.rec.anlog) 100 Unit/Ml (3 Ml) Insuln.pen 18 Unit SQ HS Fenofibrate (Fenofibrate,Micronized) 134 Mg Capsule 134 Mg PO DAILY Ozempic (Semaglutide) 2 Mg/0.75 Ml (8 Mg/3 Ml) Pen.injctr 2 Mg SQ TUE Ranolazine ER (Ranolazine) 500 Mg Tab.er.12h 500 Mg PO Q12H Metoprolol Tartrate 25 Mg Tablet 12.5 Mg PO BID TAKES OF A 25MG TAB NovoLIN R Flexpen (Insulin Regular, Human) 100 Unit/Ml (3 Ml) Insuln.pen 10 Unit SQ AC Cyclobenzaprine HCl 10 Mg Tablet 10 Mg PO Q8H PRN Atorvastatin Calcium 80 Mg Tablet 80 Mg PO HS Clopidogrel (Clopidogrel Bisulfate) 75 Mg Tablet 75 Mg PO DAILY Aspirin 81 Mg Tab.chew 81 Mg PO DAILY Nitroglycerin 0.4 Mg Tab.subl 0.4 Mg SL UD PRN Bupropion Xl (Bupropion HCl) 300 Mg Tab.er.24h 300 Mg PO DAILY Venlafaxine HCl ER (Venlafaxine HCl) 75 Mg Cap.er.24h 225 Mg PO DAILY TAKES 3 (75MG) CAPS Metformin HCl ER (Metformin HCl) 500 Mg Tab.er.24h 1,000 Mg PO BID TAKES 2 (500MG) TABS Assessment/Pt Instructions [facility] Discharge Planning: <30 minutes discharge planning Discharge Physical Examination Vital Signs Vital Signs Date Time Temp Pulse Resp B/P (MAP) Pulse Ox O2 Delivery O2 Flow Rate FiO2 01/08/23 10:55 97 Room Air 01/08/23 10:46 36.2 76 21 01/08/23 08:20 24 124/89 (101) Allergies: Coded Allergies: No Known Drug Allergies (Unverified , 05/23/18) Discharge Summary Date of Admission January 08, 2023 at 08:07 Date of Discharge Discharge Date: January 08, 2023 Discharge Diagnosis (1) Non-STEMI (non-ST elevated myocardial infarction) Status: Acute NEEL GALINDO DO January 08, 2023 12:07
== END 2023-01-08 16:15 | disposition short-term general hospital (02) ==
LOC: EDUNIT# 06:34 → ER 06:37 → UNDOADMOB 08:07 → CSD 08:07 → UNDODISOB 16:15
PROVIDERS: ADMIT Internal Medicine; ATTEND Internal Medicine
DX: I21.3 ST elevation (STEMI) myocardial infarction of unspecified site (principal); I25.110 Atherosclerotic heart disease of native coronary artery with unstable angina pectoris; I10 Essential (primary) hypertension; E78.5 Hyperlipidemia, unspecified; G47.33 Obstructive sleep apnea (adult) (pediatric); E11.9 Type 2 diabetes mellitus without complications; R77.8 Other specified abnormalities of plasma proteins; Z95.5 Presence of coronary angioplasty implant and graft; Z87.891 Personal history of nicotine dependence; Z79.84 Long term (current) use of oral hypoglycemic drugs; Z79.4 Long term (current) use of insulin
CPT/HCPCS: 36415; 71045; 80053; 80061; 84484; 85007; 85027; 85730; 93005; 94760; 96372; 96375; 96376

== ENCOUNTER → 2023-02-26 | Outpatient (RCR) | payer BC, OTHER ==
[~2023-02-26] MED LIST changes: +INSU100I10 SQ; +METO-333 PO; +RANO500T6 PO; +SEMA2PEN SQ
== END ==
LOC: CR 11:00
PROVIDERS: ATTEND Thoracic Surgery (Cardiothoracic Vascular Surgery)
DX: Z29.8 Encounter for other specified prophylactic measures (principal); Z98.890 Other specified postprocedural states
CPT/HCPCS: 93798

== ENCOUNTER 2023-03-26 16:44 | Emergency (ER) | payer BC, OTHER ==
[~2023-03-26] VITALS: Ht 182 cm; Wt 112.0 kg
[~2023-03-26 16:44] MED LIST changes: +AZIT500T PO
[2023-03-26] MEDS ORDERED: DEXTROSE 10% IV 250 ML 250 ML IV SCH (17:15)
--- NOTE | 2023-03-26 17:20 | ED Respiratory ---
General Chief Complaint: Respiratory Problems Stated Complaint: FLUID ON LUNG Nursing Triage Note: ARRIVED VIA AMB FROM [facility] AFTER HAVING A X-RAY THAT SHOWED FLUID ON THE LUNG. STATES THE FACILITIES FLIGHT CHECK PILOT THERE TOLD HIM HE SHOULD COME INTO THE ER TO BE ADMITTED ON IV ABX. STATES HIS BLOOD SUGAR WAS LOW AT THE CLINIC IN THE 60'S. WAS GIVEN CANDY AND JUICE. Source: patient Exam Limitations: no limitations History of Present Illness Date Seen by Provider: Mar 26, 2023 Time Seen by Provider: 16:50 Initial Comments 58-year-old male presents the ER for concern of fluid on his lung. He was seen here last Wednesday on 03/20/2023 and diagnosed with a pleural effusion and pneumonia. He was started on 2 antibiotics, patient states he is only been taking one because the pharmacist said that the other antibiotic interfered with some of his medications. States he has been taking the cefdinir. He was seen at the [facility] clinic today because he feels as though he continues to get worse. He reports weakness and shortness of air with exertion. He states that they completed a chest x-ray which showed the fluid on his lung and they suggested he come to the ER for admission for IV antibiotics. He had a triple bypass ap proximately 2 months ago at [facility] in [place]. He was transferred from here to [facility] after being admitted for a non-STEMI. He has 1 cardiac stent. He is diabetic on insulin and oral medications. He does not smoke. He currently does not take any hypertensive medications due to it causing his blood pressure to be too low. He was found to have a low blood sugar at [facility], they gave him juice and candy. Blood sugar continues to be low at 62. He denies fevers, chest pain, abdominal pain, nausea, vomiting. Allergies and Home Medications Allergies Coded Allergies: No Known Drug Allergies (Unverified , 05/23/18) Patient Home Medication List Home Medication List Reviewed: Yes Aspirin (Aspirin) 81 Mg Tab.chew, 81 MG PO DAILY, (Reported) Entered as Reported by: CAROL FITZGERALD on 11/10/22 1253 Atorvastatin Calcium (Atorvastatin Calcium) 80 Mg Tablet, 80 MG PO HS, (Report ed) Entered as Reported by: CAROL FITZGERALD on 11/10/22 1253 Azithromycin (Zithromax) 500 Mg Tablet, 500 MG PO DAILY Prescribed by: JOSE J DUMONT on 03/21/23 0954 Bupropion HCl (Bupropion Xl) 300 Mg Tab.er.24h, 300 MG PO DAILY, (Reported) Entered as Reported by: CAROL FITZGERALD on 11/05/22 153 Cefdinir (Cefdinir) 300 Mg Capsule, 300 MG PO BID Prescribed by: JOSE J DUMONT on 03/21/23 0954 Clopidogrel Bisulfate (Clopidogrel) 75 Mg Tablet, 75 MG PO DAILY, (Reported) Entered as Reported by: CAROL FITZGERALD on 11/10/22 1253 Cyclobenzaprine HCl (Cyclobenzaprine HCl) 10 Mg Tablet, 10 MG PO Q8H PRN for M USCLE SPASMS, (Reported) Entered as Reported by: CAROL FITZGERALD on 01/08/23 114 Fenofibrate,Micronized (Fenofibrate) 134 Mg Capsule, 134 MG PO DAILY, (Reported) Entered as Reported by: CAROL FITZGERALD on 01/08/23 114 Insulin Glargine,Hum.rec.anlog (Lantus Solostar) 100 Unit/Ml (3 Ml) Insuln.pen, 18 UNIT SQ HS, (Reported) Entered as Reported by: CAROL FITZGERALD on 01/08/23 114 Insulin Regular, Human (NovoLIN R Flexpen) 100 Unit/Ml (3 Ml) Insuln.pen, 10 UNIT SQ AC, (Reported) Entered as Reported by: CAROL FITZGERALD on 01/08/23 114 Metformin HCl (Metformin HCl ER) 500 Mg Tab.er.24h, 1,000 MG PO BID, (Reported) Entered as Reported by: CAROL FITZGERALD on 11/05/22 153 Metoprolol Tartrate (Metoprolol Tartrate) 25 Mg Tablet, 12.5 MG PO BID, (Reported) Entered as Reported by: CAROL FITZGERALD on 01/08/23 114 Nitroglycerin (Nitroglycerin) 0.4 Mg Tab.subl, 0.4 MG SL UD PRN for CHEST PAIN, (Reported) Entered as Reported by: CAROL FITZGERALD on 11/10/22 1253 Ranolazine (Ranolazine ER) 500 Mg Tab.er.12h, 500 MG PO Q12H, (Reported) Entered as Reported by: CAROL FITZGERALD on 01/08/23 1141 Semaglutide (Ozempic) 2 Mg/0.75 Ml (8 Mg/3 Ml) Pen.injctr, 2 MG SQ TUE, (Reported) Entered as Reported by: CAROL FITZGERALD on 01/08/23 1141 Venlafaxine HCl (Venlafaxine HCl ER) 75 Mg Cap.er.24h, 225 MG PO DAILY, (Reported) Entered as Reported by: CAROL FITZGERALD on 11/05/22 1536 Review of Systems Review of Systems Constitutional: see HPI Past Psggcqz-Jwpbga-Gjdzti Hx Patient Social History Tobacco Use?: No Substance use?: No Alcohol Use?: Yes Alcohol Frequency: Once in a while Immunizations Up To Date First/Initial COVID19 Vaccinat: OCTOBER 2020 Second COVID19 Vaccination Yahir: NOVEMBER 2020 Third COVID19 Vaccination Date: NONE Seasonal Allergies Seasonal Allergies: Yes Past Medical History Surgery/Hospitalization HX: CARDIAC STENT AND ANGIOPLASTY 11/05/22, BYPASS SCHEDULED 01/2023 IDDM, OBESITY, GOUT, UMBILICAL HERNIA, HTN, HLD Surgeries: Yes (UMB HERNIA, HEART CATH X2) Abdominal, Cardiac, Coronary Stent Respiratory: Yes Sleep Apnea Currently Using CPAP: Yes Cardiac: Yes Coronary Artery Disease, Heart Attack, High Cholesterol, Hypertension Neurological: No Reproductive Disorders: No Sexually Transmitted Disease: No HIV/AIDS: No Genitourinary: No Gastrointestinal: Yes Abdominal Hernia, Gastroesophageal Reflux, Diverticulosis, Hemorrhoids, Polyps Musculoskeletal: Yes Arthritis, Chronic Back Pain Endocrine: Yes (OBESITY) Diabetes, Insulin dep HEENT: No Loss of Vision: Bilateral Hearing Impairment: Denies Cancer: No Psychosocial: Yes Anxiety, Depression Integumentary: No Blood Disorders: No Adverse Reaction/Blood Tranf: No (N/A) Family Medical History Heart Disease, Cancer, CVA, Diabetes, Other Conditions/Hx 05/25/2018--RIGHT KNEE SCOPE BY DR. INFANTE COLONOSCOPY 07/21/[address] MATTHEWS: Pre-Operative Diagnosis screening colonoscopy Post-Operative Diagnosis Polyp Diverticula int hemorrhoids CARDIAC CATH 11/05/[address] CROWLEY: PERCUTANEOUS CORONARY INTERVENTION: 1. LCx (stenting): Pre- 95% with SUBHA 2; Post- 0% with SUBHA 3; Guide JL-4; Wire- Choice Floppy; Balloon 3.0 x 30; Stent- [place] 3.5 x 15 2. LAD D2 (balloon only): Pre- 99% with SUBHA 2; Post- <50% with SUBHA 3; Guide JL-4; Wire- Choice Floppy; Balloon 2.0 x 30 Physical Exam Vital Signs - First Documented 03/26/23 16:52 Temp 36.2 Pulse 87 Resp 16 B/P (MAP) 120/81 (94) Pulse Ox 96 O2 Delivery Room Air Capillary Refill : Less Than 3 Seconds Height: 6'1.00" Weight: 330lbs. 3.0oz. 149.127728fl; 33.00 BMI Method:Stated General Appearance: WD/WN, mild distress, other (Diaphoretic) Neck: supple, normal inspection Respiratory: lungs clear, respiratory distress (Short of breath while lying in bed and talking) Cardiovascular: regular rate, rhythm Extremities: normal range of motion, normal inspection, no pedal edema Neurologic/Psychiatric: alert, normal mood/affect Skin: normal color, diaphoresis Focused Exam Lactate Level 03/26/23 17:30: Lactic Acid Level 3.01*H 03/26/23 19:25: Lactic Acid Level 2.35*H Lactic Acid Level Laboratory Tests Test 03/26/23 17:30 03/26/23 19:25 Lactic Acid Level 3.01 MMOL/L (0.50-2.00) *H 2.35 MMOL/L (0.50-2.00) *H Progress/Results/Core Measures Suspected Sepsis SIRS Temperature: Pulse: 87 Respiratory Rate: 16 Laboratory Tests 03/26/23 17:20: White Blood Count 10.1 Blood Pressure 120 /81 Mean: 94 03/26/23 17:30: Lactic Acid Level 3.01*H 03/26/23 19:25: Lactic Acid Level 2.35*H Laboratory Tests 03/26/23 17:20: Creatinine 1.45H, INR Comment 1.0, Platelet Count 455H, Total Bilirubin 0.3 Results/Orders Lab Results Laboratory Tests Test 03/26/23 17:01 03/26/23 17:20 03/26/23 17:30 03/26/23 17:50 Range/Units Glucometer 62 L 70-110 MG/DL White Blood Count 10.1 4.3-11.0 10^3/uL Red Blood Count 5.03 4.30-5.52 10^6/uL Hemoglobin 12.7 L 13.3-17.7 g/dL Hematocrit 42 40-54 % Mean Corpuscular Volume 83 80-99 fL Mean Corpuscular Hemoglobin 25 25-34 pg Mean Corpuscular Hemoglobin Concent 31 L 32-36 g/dL Red Cell Distribution Width 17.6 H 10.0-14.5 % Platelet Count 455 H 130-400 10^3/uL Mean Platelet Volume 8.4 L 9.0-12.2 fL Immature Granulocyte % (Auto) 0 % Neutrophils (%) (Auto) 64 42-75 % Lymphocytes (%) (Auto) 23 12-44 % Monocytes (%) (Auto) 10 0-12 % Eosinophils (%) (Auto) 3 0-10 % Basophils (%) (Auto) 1 0-10 % Neutrophils # (Auto) 6.4 1.8-7.8 10^3/uL Lymphocytes # (Auto) 2.3 1.0-4.0 10^3/uL Monocytes # (Auto) 1.0 0.0-1.0 10^3/uL Eosinophils # (Auto) 0.3 0.0-0.3 10^3/uL Basophils # (Auto) 0.1 0.0-0.1 10^3/uL Immature Granulocyte # (Auto) 0.0 0.0-0.1 10^3/uL Prothrombin Time 13.8 12.2-14.7 SEC INR Comment 1.0 0.8-1.4 Activated Partial Thromboplast Time 33 24-35 SEC D-Dimer 2.64 H 0.00-0.49 UG/ML Sodium Level 139 135-145 MMOL/L Potassium Level 3.9 3.6-5.0 MMOL/L Chloride Level 105 98-107 MMOL/L Carbon Dioxide Level 24 21-32 MMOL/L Anion Gap 10 5-14 MMOL/L Blood Urea Nitrogen 17 7-18 MG/DL Creatinine 1.45 H 0.60-1.30 MG/DL Estimat Glomerular Filtration Rate 56 BUN/Creatinine Ratio 12 Glucose Level 61 L 70-105 MG/DL Calcium Level 9.5 8.5-10.1 MG/DL Corrected Calcium 9.5 8.5-10.1 MG/DL Total Bilirubin 0.3 0.1-1.0 MG/DL Aspartate Amino Transf (AST/SGOT) 22 5-34 U/L Alanine Aminotransferase (ALT/SGPT) 21 0-55 U/L Alkaline Phosphatase 108 40-136 U/L B-Type Natriuretic Peptide 114.5 H <100.0 PG/ML Total Protein 7.3 6.4-8.2 GM/DL Albumin 4.0 3.2-4.5 GM/DL Lactic Acid Level 3.01 *H 0.50-2.00 MMOL/L Urine Color YELLOW Urine Clarity SL CLOUDY Urine pH 6.0 5-9 Urine Specific [place] >=1.030 1.016-1.022 Urine Protein TRACE H NEGATIVE Urine Glucose (UA) 3+ H NEGATIVE Urine Ketones NEGATIVE NEGATIVE Urine Nitrite NEGATIVE NEGATIVE Urine Bilirubin NEGATIVE NEGATIVE Urine Urobilinogen 0.2 < = 1.0 MG/DL Urine Leukocyte Esterase NEGATIVE NEGATIVE Urine RBC (Auto) NEGATIVE NEGATIVE Urine RBC NONE /HPF Urine WBC NONE /HPF Urine Squamous Epithelial Cells 0-2 /HPF Urine Crystals NONE /LPF Urine Bacteria NEGATIVE /HPF Urine Casts PRESENT /LPF Urine Hyaline Casts 5-10 H /LPF Urine Mucus SMALL H /LPF Urine Culture Indicated NO Test 03/26/23 18:46 03/26/23 19:24 03/26/23 19:25 03/26/23 19:51 Range/Units Glucometer 142 H 97 80 70-110 MG/DL Lactic Acid Level 2.35 *H 0.50-2.00 MMOL/L My Orders Orders - SIA RICHARD APRN Cbc With Automated Diff (03/26/23 17:06) Comprehensive Metabolic Panel (03/26/23 17:06) Blood Culture (03/26/23 17:06) Sputum Culture (03/26/23 17:06) Urinalysis (03/26/23 17:06) Urine Culture (03/26/23 17:06) Protime With Inr (03/26/23 17:06) Partial Thromboplastin Time (03/26/23 17:06) Ed Iv/Invasive Line Start (03/26/23 17:06) Vital Signs Adult Sepsis Patie Q15M (03/26/23 17:06) Lactic Acid Analyzer (03/26/23 17:06) Chest Pa/Lat (2 View) (03/26/23 17:06) Dextrose 10% Iv 250 Ml (D10w 250 Ml Iv S (03/26/23 17:15) Fibrin Degradation Products (03/26/23 17:12) Bnp [place] (03/26/23 17:13) Ns Iv 1000 Ml (Sodium Chloride 0.9%) (03/26/23 18:00) Ct Angio Chest W (R/O Pe) (03/26/23 17:57) Iohexol Injection (Omnipaque 350 Mg/Ml 1 (03/26/23 18:15) Ns (Ivpb) 100 Ml (Sodium Chloride 0.9% 1 (03/26/23 18:15) Accucheck Stat ONCE (03/26/23 19:53) Accucheck Stat ONCE (03/26/23 19:53) Accucheck Stat ONCE (03/26/23 19:53) Accucheck Stat ONCE (03/26/23 19:53) Medications Given in ED Current Medications Medications Dose Ordered Sig/All Route Start Time Stop Time Status Last Admin Dose Admin Iohexol 100 ml ONCE ONCE IV 03/26/23 18:15 03/26/23 18:16 DC 03/26/23 18:23 95 ML Sodium Chloride 100 ml ONCE ONCE IV 03/26/23 18:15 03/26/23 18:16 DC 03/26/23 18:23 70 ML Vital Signs/I&O 03/26/23 03/26/23 16:52 20:41 Temp 36.2 Pulse 87 78 Resp 16 16 B/P (MAP) 120/81 (94) 110/58 Pulse Ox 96 95 O2 Delivery Room Air Room Air Capillary Refill : Less Than 3 Seconds Blood Pressure Mean: 94 Point of Care Testing Finger Stick Blood Glucose: 62 Progress Note : Progress Note Patient seen and evaluated, lying in bed, mild distress, becomes short of air when talking, is able to speak in complete sentences. Based on exam and symptoms, septic work-up initiated including CBC, CMP, coags, blood cultures x2, urinalysis, lactic acid, chest x-ray. Will hold off on ordering fluid bolus due to already having extra fluid on lung. D10 in water ordered for hypoglycemia. 1758 labs reviewed. CBC shows slightly decreased hemoglobin 12.7. Slightly elevated platelets 455, this is decreased from 6 days ago when it was at 523. CMP shows slightly elevated creatinine 1.45, decreased GFR 56, BUN 17. Creatinine on 03/20 was 1.15, GFR was 73. Lactic acid critically elevated at 3 .01. Liter of IV fluids ordered. BNP only slightly elevated at 114.5. Coags normal. D-dimer elevated 2.64. CT angio chest ordered. Urinalysis shows 3+ glucose, negative for infection. Chest x-ray reviewed. Its shows small left pleural effusion and associated airspace opacities which might be atelectasis or infiltrate. 2024 Repeat lactic acid is improved at 2.35. CT angio chest shows no evidence of pulmonary embolism. Shows left lower airspace opacity which is likely atelectasis and small left pleural effusion. No evidence of edema or pneumonia. On my review of CT when compared to CT on 03/20/2023, pleural effusion appears much improved. Blood sugar has remained stable, last blood sugar was 80. Patient reports that he only had coffee and chili today. Patient instructed to go home and eat supper tonight. He states that him and his primary care provider have been adjusting his insulin due to having low blood sugar. Patient states that he has also been eating better which has resulted in lower blood sugars. All results discussed with patient. Patient appears much better than previous, he is not having any shortness of breath with talking. Vitals have remained stable during stay. Patient has not become hypoxic at any time during stay. Patient informed that at this time he does not meet criteria for admission. Informed patient that his pleural effusion is improving as well as his pneumonia. Patient instructed to continue taking his antibiotic as prescribed. Patient is concerned why he seems to not be getting better after his surgery. Patient instructed that he had a major surgery which can take some time to recover. Patient is already doing cardiac physical therapy, patient instructed that this will continue to help him. Discharge instructions and return precautions provided. Diagnostic Imaging Diagonstic Imaging: Xray Plain Films/CT/US/NM/MRI: chest Comments [facility] [place] [place] NAME: BRENTON ALMAGUER [facility] REC#: [id number] PT STATUS: REG ER : 1965 PHYSICIAN: SIA RICHARD APRN ADMIT DATE: 03/26/23/ER Signed Date of Exam:03/26/23 CHEST PA/LAT (2 VIEW) HISTORY: Shortness of air. TECHNIQUE: 2 views of the chest. COMPARISON: 03/20/2023. FINDINGS: There is a small left pleural effusion with left basilar airspace opacities. There is no pneumothorax. There is a calcified granuloma in the left upper lung. Sternotomy wires and post-CABG changes are seen. The cardiac silhouette is stable in size. IMPRESSION: Small left pleural effusion. Associated airspace opacities may be atelectasis or infiltrate. Dictated by: Dictated on workstation # [id number] Dict: 03/26/23 1755 Trans: 03/26/231900 [facility] [id number] Interpreted by: PAUL BARNHART MD Electronically signed by: PAUL BARNHART MD 03/26/231900 Diagonstic Imaging: CT Plain Films/CT/US/NM/MRI: chest Comments [facility] [place] NAME: BRENOTN ALMAGUER [facility] REC#: [id number] PT STATUS: REG ER : 1965 PHYSICIAN: SIA RICHARD ROAD MECHANIC ADMIT DATE: 03/26/23/ER Signed Date of Exam:03/26/23 CT ANGIO CHEST W (R/O PE) EXAMINATION: CT of the chest utilizing TECHNIQUE: Contiguous helical MDCT images were obtained through the chest after intravenous administration of ml Omnipaque 350 using the pulmonary embolus protocol. Multiplanar axial, coronal, sagittal, oblique thin section and coronal MIP images were generated and reviewed. HISTORY: soa, elevated d-dimer COMPARISON: CTA of the chest on 03/20/2023. FINDINGS: Evidence of pulmonary embolism. Normal caliber pulmonary artery. There is no edema or pneumonia. Similar small left pleural effusion and airspace opacity in the left lower lobe likely atelectasis. No airway lesions identified. No pneumothorax. No suspicious nodules. Redemonstration of calcified granuloma within the left upper lobe. There is no axillary or supraclavicular lymphadenopathy. There is no mediastinal lymphadenopathy. Heart size is enlarged. There are mild coronary artery calcifications. Trace pericardial effusion. Aorta is normal in caliber. Included views of the abdomen demonstrates no significant abnormality. The osseous structures demonstrate no lytic or sclerotic bone lesion. Poststernotomy changes. No soft tissue abscess or fluid collection. IMPRESSION: No evidence of pulmonary embolism. Postsurgical changes from post sternotomy. No substernal hematoma or abscess. Unchanged left lower lobe airspace opacity and small left pleural effusion. Dictated by: Dictated on workstation # [id number] Dict: 03/26/23 183 Trans: 03/26/231835 [facility] [place] [id number] Interpreted by: SEAN ORTEGA DO Electronically signed by: SEAN ORTEGA DO 03/26/231835 Departure Impression Primary Impression: Pleural effusion Additional Impression: Shortness of breath Disposition: HOME, SELF-CARE Condition: Stable Departure-Patient Inst. Decision time for Depature: 20:30 Referrals: [facility] (PCP) Primary Care Physician NATAN DEL REAL APRN (Family) Primary Care Physician Patient Instructions: Pleural Effusion (DC) Add. Discharge Instructions: Continue taking your antibiotic as prescribed, complete full course of antibiotic. Follow-up with your primary care provider. Continue monitoring your blood sugar, and make sure you are eating plenty and discussed with your primary care provider regarding reducing your dose of insulin if needed. Return for severe shortness of breath, chest pain, or any other new, concerning, or worsening symptoms. All discharge instructions reviewed with patient and/or family. Voiced understanding. SIA RICHARD APRN Mar 26, 2023 17:20
[2023-03-26 17:29] LABS: BASOPHILS # (AUTO) 0.1 10^3/uL (0.0-0.1); BASOPHILS % (AUTO) 1 % (0-10); EOSINOPHILS # (AUTO) 0.3 10^3/uL (0.0-0.3); EOSINOPHILS % (AUTO) 3 % (0-10); HEMATOCRIT 42 % (40-54); HEMOGLOBIN 12.7 g/dL (13.3-17.7); LYMPHOCYTES # (AUTO) 2.3 10^3/uL (1.0-4.0); LYMPHOCYTES % (AUTO) 23 % (12-44); MEAN CORPUSCULAR HEMOGLOBIN 25 pg (25-34); MEAN CORPUSCULAR HGB CONC 31 g/dL (32-36); MEAN CORPUSCULAR VOLUME 83 fL (80-99); MEAN PLATELET VOLUME 8.4 fL (9.0-12.2); MONOCYTES % (AUTO) 10 % (0-12); NEUTROPHILS # (AUTO) 6.4 10^3/uL (1.8-7.8); NEUTROPHILS % (AUTO) 64 % (42-75); PLATELET COUNT 455 10^3/uL (130-400); WHITE BLOOD COUNT 10.1 10^3/uL (4.3-11.0)
[2023-03-26 17:41] LABS: POTASSIUM 3.9 MMOL/L (3.6-5.0)
[2023-03-26 17:42] LABS: CALCIUM 9.5 MG/DL (8.5-10.1)
[2023-03-26 17:43] LABS: PROTHROMBIN TIME PATIENT 13.8 SEC (12.2-14.7); TOTAL PROTEIN 7.3 GM/DL (6.4-8.2)
[2023-03-26 17:45] LABS: BILIRUBIN,TOTAL 0.3 MG/DL (0.1-1.0)
[2023-03-26 17:46] LABS: CREATININE SERUM 1.45 MG/DL (0.60-1.30)
[2023-03-26 17:54] LABS: FIBRIN DEGRADATION PRODUCTS 2.64 UG/ML (0.00-0.49)
[2023-03-26 17:58] LABS: BILIRUBIN,URINE NEGATIVE (NEGATIVE); CLARITY,URINE SL CLOUDY; COLOR,URINE YELLOW; GLUCOSE, URINE (UA) 3+ (NEGATIVE); KETONES,URINE NEGATIVE (NEGATIVE); LEUKOCYTE ESTERASE ,URINE NEGATIVE (NEGATIVE); NITRITE,URINE NEGATIVE (NEGATIVE); PROTEIN,URINE TRACE (NEGATIVE)
--- NOTE | 2023-03-26 17:59 | Diagnostic Imaging Report ---
HISTORY: Shortness of air. TECHNIQUE: 2 views of the chest. COMPARISON: 03/20/2023. FINDINGS: There is a small left pleural effusion with left basilar airspace opacities. There is no pneumothorax. There is a calcified granuloma in the left upper lung. Sternotomy wires and post-CABG changes are seen. The cardiac silhouette is stable in size. IMPRESSION: Small left pleural effusion. Associated airspace opacities may be atelectasis or infiltrate. Dictated by: Dictated on workstation # [id number]
[2023-03-26] MEDS ORDERED: NS IV 1000 ML 1,000 ML IV SCH (18:00)
[2023-03-26 18:05] LABS: BACTERIA,URINE NEGATIVE /HPF; SQUAMOUS EPITHELIAL CELL,UR 0-2 /HPF
[2023-03-26] MEDS ORDERED: IOHEXOL 350 MG/ML 100 ML (OMNIPAQUE 350) VIAL IV ONE (18:15)
[2023-03-26] MEDS ORDERED: NS 100 ML (IVPB) BAG IV ONE (18:15)
--- NOTE | 2023-03-26 18:38 | Diagnostic Imaging Report ---
EXAMINATION: CT of the chest utilizing TECHNIQUE: Contiguous helical MDCT images were obtained through the chest after intravenous administration of ml Omnipaque 350 using the pulmonary embolus protocol. Multiplanar axial, coronal, sagittal, oblique thin section and coronal MIP images were generated and reviewed. HISTORY: soa, elevated d-dimer COMPARISON: CTA of the chest on 03/20/2023. FINDINGS: Evidence of pulmonary embolism. Normal caliber pulmonary artery. There is no edema or pneumonia. Similar small left pleural effusion and airspace opacity in the left lower lobe likely atelectasis. No airway lesions identified. No pneumothorax. No suspicious nodules. Redemonstration of calcified granuloma within the left upper lobe. There is no axillary or supraclavicular lymphadenopathy. There is no mediastinal lymphadenopathy. Heart size is enlarged. There are mild coronary artery calcifications. Trace pericardial effusion. Aorta is normal in caliber. Included views of the abdomen demonstrates no significant abnormality. The osseous structures demonstrate no lytic or sclerotic bone lesion. Poststernotomy changes. No soft tissue abscess or fluid collection. IMPRESSION: No evidence of pulmonary embolism. Postsurgical changes from post sternotomy. No substernal hematoma or abscess. Unchanged left lower lobe airspace opacity and small left pleural effusion. Dictated by: Dictated on workstation # [id number]
[2023-03-26 20:41] VITALS: BP 110/58
== END 2023-03-26 20:41 | disposition home or self-care (01) ==
LOC: EDUNIT# 16:44 → ER 16:46
DX: J90 Pleural effusion, not elsewhere classified (principal); R74.02 Elevation of levels of lactic acid dehydrogenase [LDH]; R94.4 Abnormal results of kidney function studies; E66.9 Obesity, unspecified; G47.30 Sleep apnea, unspecified; E11.9 Type 2 diabetes mellitus without complications; Z79.4 Long term (current) use of insulin; Z99.89 Dependence on other enabling machines and devices; Z68.33 Body mass index [BMI] 33.0-33.9, adult
CPT/HCPCS: 36415; 71046; 71275; 80053; 81000; 82947; 83605; 83880; 85025; 85379; 85610; 85730; 87040; 87088

== ENCOUNTER → 2023-03-29 | Outpatient (RCR) | payer BC, OTHER | END | disposition home or self-care (01) | LOC: CR 03-01 11:41 | PROVIDERS: ATTEND Thoracic Surgery (Cardiothoracic Vascular Surgery) | DX: Z29.8 Encounter for other specified prophylactic measures (principal); Z95.1 Presence of aortocoronary bypass graft | CPT/HCPCS: 93798 ==

== ENCOUNTER 2023-04-14 11:14 | Outpatient (RCR) | payer BC, OTHER | END 2023-04-29 | disposition home or self-care (01) | LOC: CR 11:14 | PROVIDERS: ATTEND Thoracic Surgery (Cardiothoracic Vascular Surgery) | DX: Z29.8 Encounter for other specified prophylactic measures (principal); Z95.1 Presence of aortocoronary bypass graft | CPT/HCPCS: 93798 ==